=== PATIENT | female | born 1945 | race Caucasian/White ===

== ENCOUNTER 2020-12-11 07:57 | Outpatient (RCR) | payer MEDICARE, OTHER, SELFPAY | END 2020-12-11 23:59 | LOC: IMMUN 07:57 | PROVIDERS: PCP Family Medicine; Visit Provider Family Medicine | DX: Z23 Encounter for immunization (principal) | CPT/HCPCS: 0011A; 0012A ==

== ENCOUNTER → 2025-05-13 | Outpatient (CLI) | payer MEDICARE, OTHER, SELFPAY ==
--- OUTSIDE RECORDS SUMMARY | 2025-05-13 06:38 | XMS RPT_ITS | CCD ---
Author Organization [facility] Inform ion Partnership [facility] Care Team Providers Care Electrical Equipment Tester Name Role Phone MAXWELL CHACON MD Primary Care Physician Maxwell Chacon MD Primary Care Provider Maxwell Chacon MD Primary Care Provider Maxwell Chacon MD Primary Care Provider 1( [phone] MAXWELL CHACON MD Attending Unavailable MAXWELL CHACON MD Primary Care Unavailable MAXWELL CHACON MD Attending Unavailable MAXWELL CHACON MD Primary Care Unavailable Maxwell Chacon MD Primary Care Provider RACHAEL SIMMONS Referring Unavailable MAXWELL CHACON Primary Care Unavailable Maxwell Chacon Referring Unavailable Maxwell Chacon Attending Unavailable Maxwell Chacon Primary Care Unavailable MAXWELL CHACON MD Attending Unavailable MAXWELL CHACON MD Primary Care Unavailable ZACHERY PAPPAS DO Attending Unavailable MAXWELL HCACON MD Primary Care Unavailable MAXWELL CHACON MD Attending Unavailable MAXWELL CHACON MD Primary Care Unavailable Unavailable Unavailable Unavailable Allergies Allergy Classification Reported Allergen(s) Allergy Type Date of Onset Reaction(s) Facility (7 sources) Penicillin; Translations: [penicillin] Drug Allergy [facility] (7 sources) Penicillins; Translations: [PENICILLINS] Propensity to adverse reactions 12-31-2006 Rash [facility] Work Phone: (2 sources) Penicillins Propensity to adverse reactions 12-31-2006 [facility] Work Phone: Medications Current Medications Medication Drug Class(es) Dates Sig (Normalized) Sig (Original) aspirin 81 mg delayed release oral tablet (15 sources) Platelet Aggregation Inhibitor, Nonsteroidal Anti-inflammatory Drug Start: 08-31-2018 aspirin 81 mg oral delayed release tablet Dose : 81 mg = 1 tab(s), Oral, qDay, 0 Refill(s) Start Date: 08/31/18 Status: Ordered Repeat number: 1 Aspirin 81 mg ta b Take 81 mg by mouth. Active Comment on above: Take 81 mg by mouth. calcium carbonate 1500 mg / cholecalciferol 200 unt oral tablet (8 sources) Vitamin D Start : 12-31 CALCIUM + D 600 MG-200 UNIT TAB one tab daily 0 12/31/2006 Active Comment on above: one tab daily diazePAM 2 mg oral tablet (1 source) Benzodiazepine Start : 05-04 End: 07-03 diazePAM 2 mg oral tablet Dose : 2 mg = 1 tab(s), Oral, q8h, PRN as needed for anxiety, # 60 tab(s), 1 Refill(s), Pharmacy: [facility]/pharmacy #[id number], HUANG (generalized anxiety disorder), 167, cm, 05/04/25 9:28:00 EDT, Height, 78.8, kg, 05/04/25 9:28:00 EDT, Dosing Weight Start Date: 05/04/25 Stop Date: 07/03/25 Status: Ordered Quantity: 60.0 Unit: tab(s) Repeat number: 2 Indications: Generalized anxiety disorder; hydroCHLOROthiazide 25 mg oral tablet (14 sources) Thiazide Diuretic Start : 07-18 hydroCHLOROthiazide 25 mg oral tablet Dose : 25 mg = 1 tab(s), Oral, qDay, # 90 tab(s), 3 Refill(s), Pharmacy: [facility]/pharmacy #[id number], 167.7, cm, 10/07/24 13:01:00 EST, Height, kg, 10/07/24 13:01:00 EST, Dosing Weight Start Date: 03/09/25 Status: Ordered Quantity: 90.0 Unit: tab(s) Repeat number: 4 Comment on above: Take 1 tablet by vicky th once daily. hydroCHLOROthiazide 12.5 mg / losartan potassium 50 mg oral tablet (1 source) Thiazide Diuretic, Angiotensin 2 Receptor Viet Start : 05-04 End: 04-29 take 1 tablet by mouth once daily hydrochlorothiazide-losa rtan 12.5-50 mg oral tablet Dose = 1 tab(s), Oral, qDay, # 90 tab(s), 3 Refill(s), Pharmacy: [facility]/pharmacy #[id number], Well adult exam Chronic cough, 167, cm, 05/04/25 9:28:00 EDT, Height, kg, 05/04/25 9:28:00 EDT, Dosing Weight Start Date: 05/04/25 Stop Date: 04/29/26 Status: Ordered Quantity: 90.0 Unit: tab(s) Repeat number: 4 Indications: Encounter for general adult medical examination without abnormal findings; Chronic cough; levothyroxine sodium 0.05 mg oral tablet (15 sources) l-Thyroxine Start : 03-09 levothyroxine 50 mcg (0.05 mg) oral tablet Dose : 50 mcg = 1 tab(s), Oral, qDay, # 90 tab(s), 3 Refill(s), Pharmacy: [facility]/pharmacy #[id number], 167.7, cm, 10/07/24 13:01:00 EST, Height, kg, 10/07/24 13:01:00 EST, Dosing Weight Start Date: 03/09/25 Status: Ordered Quantity: 90.0 Unit: tab(s) Repeat number: 4 Start: 03-23-2024 levothyroxine 50 mcg (0.05 mg) oral tablet Dose : 50 mcg = 1 tab(s), Oral, qDay, # 90 tab(s), 3 Refill(s), Pharmacy: [facility]/pharmacy #[id number], 168.6, cm, 03/27/23 14:27:00 EDT, Height, kg, 03/27/23 14:27:00 EDT, Dosing Weight Start Date: 03/23/24 Status: Ordered Quantity: 90.0 Unit: tab(s) Repeat number: 4 Start: 03-27-2023 levothyroxine 50 mcg (0.05 mg) oral tablet Dose : 50 mcg = 1 tab(s), Oral, qDay, # 90 tab(s), 3 Refill(s), Pharmacy: [facility]/pharmacy #[id number], 168.6, cm, 03/27/23 14:27:00 EDT, Height, kg, 03/27/23 14:27:00 EDT, Dosing Weight Start Date: 03/27/23 Status: Ordered Start: 12-03-2022 levothyroxine 50 mcg (0.05 mg) oral tablet Dose : 50 mcg = 1 tab(s), Oral, qDay, # 90 tab(s), 0 Refill(s), [id number], 170, cm, 04/24/22 8:29:00 EDT, Height, kg, 04/24/22 8:29:00 EDT, Dosing Weight Start Date: 12/03/22 Status: Ordered Start: 09-04-2021 levothyroxine 50 mcg (0.05 mg) oral tablet Dose : 50 mcg = 1 tab(s), Oral, qDay, # 90 tab(s), 3 Refill(s), [id number], 169.6, cm, 08/29/21 11:56:00 EST, Height, kg, 08/29/21 11:56:00 EST, Dosing Weight Start Date: 09/04/21 Status: Ordered Levothyroxine 25 mcg cap Take 50 mcg by mouth. Active Comment on above: Take 50 mcg by mouth . Multivitamin preparation (7 sources) Start: 08-31-2018 take 1 tablet by mouth once daily Multivitamin Dose = 1 tab(s), Oral, Daily, 0 Refill(s) Start Date: 08/31/18 Status: Ordered Repeat number: 1 Start: 08-31-2018 take 1 tablet by vicky th once daily Multivitamin Dose = 1 tab(s), Oral, Daily, 0 Refill(s) Start Date: 08/31/18 Status: Ordered THERAPEUTIC MULTIVITAMIN TAB (8 sources) Start: 12-31-2006 THERAPEUTIC MULTIVITAMIN TAB Take one(1) tablet daily. 0 12/31/2006 Active Comment on above: Take one(1) tablet d aily. Completed/Discontinued Medications Medication Drug Class(es) Dates Sig (Normalized) Sig (Original) omega-3 fatty acids/fish oil (FISH OIL-OMEGA-3 FATTY ACIDS) 300-1,000 mg cap (1 source) End: 11-20-2022 omega-3 fatty acids/fish oil (FISH OIL-OMEGA-3 FATTY ACIDS) 300-1,000 mg cap Take by mouth. 0 11/20/2022 Discontinued Comment on above: Take by mouth. Problems Problem Classification Problem Date Documented Date Episodic/Chronic Acute bronchitis (1 source) Acute respiratory syncytial virus bronchitis; Translations: [Acute bronchitis due to respiratory syncytial virus] Onset: 10-05-2024 Episodic Anxiety disorders (1 source) Generalized anxiety disorder 05-04-2025 Chronic Disorders of lipid metabolism (15 sources) Mixed hyperlipidemia; Translations: [Mixed hyperlipidemia] Onset: 02-03-2019 02-25-2020 Chronic Essential hypertension (20 sources) Essential hypertension; Translations: [Hypertensive disorder] Onset: 09-01-2013 08-29-2021 Chronic Miscellaneous mental health disorders (7 sources) Primary insomnia 02-25-2020 Chronic Nonmalignant breast conditions (2 sources) Heterogeneously dense breast composition; Translations: [Heterogeneously dense tissue of both breasts on mammography] 11-26-2023 Episodic Nonspecific chest pain (1 source) Chest discomfort 04-12-2025 Episodic Other circulatory disease (7 sources) Carotid bruit 02-25-2020 Episodic Other female genital disorders (1 source) Cyst of vulva; Translations: [Vulvar cyst] Episodic Other lower respiratory disease (1 source) Shortness of breath; Translations: [Shortness of breath] Onset: 05-07-2025 Episodic Other lower respiratory disease (1 source) Chronic cough 04-12-2025 Episodic Other lower respiratory disease (1 source) Dyspnea on exertion 04-12-2025 Episodic Other screening for suspected conditions (not mental disorders or infectious disease) (6 sources) Patient encounter status; Translations: [Encounter for screening mammogram for malignant neoplasm of breast] Onset: 02-23-2025 Episodic Other upper respiratory disease (7 sources) Nasal discharge 08-29-2021 Episodic Other upper respiratory infections (3 sources) Acute sinusitis 04-07-2024 Episodic Thyroid disorders (20 sources) Hypothyroidism; Translations: [Hypothyroidism, unspecified] Onset: 09-01-2013 02-27-2018 Chronic Unclassified (7 sources) Patient encounter status 03-12-2023 Results Test Name Value Interpretation Reference Range Facility LABORATORYOrdered By: Johnny Kilgore on 05-04-2025 Albumin DL <= 20 mg/L (U) [Mass/Vol] 2.6 mg/L Invalid Interpretation Code AO ADM SS Albumin/Creatinine DL <= 20 mg/L (U) [Mass ratio] 6 mg/G Normal 0 - 30 mg/G AO Chemistry S Creatinine (U) [Mass/Vol] 42.9 mg/dL Invalid Interpretation Code AO ADM SS MALBRon 05-04-2025 U Creatinine 42.9 mg/dL Normal [facility] Comment on above: Performed By: #### M ALBR #### [address] [address] U Microalb 2.6 mg/L Normal [facility] Comment on above: Performed By: #### M ALBR #### [address] [address] U Ratio Alb/Cre 6 mg/G Normal 0-30 [facility] Comment on above: Performed By: #### M ALBR #### [address] [address] .Auto Diffon 04-07-2025 Basophil, Absolute 0.1 10 3/mcL Normal 0.0-0.3 [facility] Comment on above: Performed By: #### F T4, CMP, GFR, LIPID, CBC, ADIFF, ANEU, FT3, VIDH, TSH #### [address] [address] Basophils/100 WBC (Bld) 1.4 % Normal 0.0-2.5 [facility] Comment on above: Performed By: #### F T4, CMP, GFR, LIPID, CBC, ADIFF, ANEU, FT3, VIDH, TSH #### [address] [address] Eosinophil, Absolute 0.5 10 3/mcL Normal 0.0-0.7 [facility] Comment on above: Performed By: #### F T4, CMP, GFR, LIPID, CBC, ADIFF, ANEU, FT3, VIDH, TSH #### [address] [address] Eosinophils/100 WBC (Bld) 6.5 % High 0.0-6.0 [facility] Comment on above: Performed By: #### F T4, CMP, GFR, LIPID, CBC, ADIFF, ANEU, FT3, VIDH, TSH #### [address] [address] Lymphocyte, Absolute 2.9 10 3/mcL Normal 0.9-4.3 [facility] Comment on above: Performed By: #### F T4, CMP, GFR, LIPID, CBC, ADIFF, ANEU, FT3, VIDH, TSH #### [address] [address] Lymphocytes/100 WBC (Bld) 38.7 % Normal 20.0-40.0 [facility] Comment on above: Performed By: #### F T4, CMP, GFR, LIPID, CBC, ADIFF, ANEU, FT3, VIDH, TSH #### [address] [address] Monocyte, Absolute 0.7 10 3/mcL Normal 0.1-1.4 [facility] Comment on above: Performed By: #### F T4, CMP, GFR, LIPID, CBC, ADIFF, ANEU, FT3, VIDH, TSH #### [address] [address] Monocytes/100 WBC (Bld) 8.8 % Normal 2.0-13.0 [facility] Comment on above: Performed By: #### F T4, CMP, GFR, LIPID, CBC, ADIFF, ANEU, FT3, VIDH, TSH #### [address] [address] Neutrophils/100 WBC (Bld) 44.6 % Low 50.0-75.0 [facility] Comment on above: Performed By: #### F T4, CMP, GFR, LIPID, CBC, ADIFF, ANEU, FT3, VIDH, TSH #### [address] [address] .GFRon 04-07-2025 Estimated Glomerular Filtration Rate 72 ml/min/1.73sqm Normal [facility] Comment on above: Result Comment: Stages of Chronic Kidney Disease (CKD) Stage Description eGFR(ml/min/1.73 sq.m.) CKD 1 Normal kidney function or >=90 normal kindney function with possible kidney damage (ex. Proteinuria) CKD 2 Kidney damage with mild loss 60-89 of kidney function CKD 3a Mild to moderate loss of kidney 45-59 function CKD 3b Moderate to severe loss of 30-44 of kindey function CKD 4 Severe loss of kidney function 15-29 CKD 5 Kidney failure <15 Note: (go live 2024) the eGFR calculation was updated to the 2020 CKD-EPI creatinine equation without a race factor to calculate the eGFR results. Performed By: #### C VFLURV #### [place] [address] .NEUABSon 04-07-2025 Neutrophil, Absolute 3.3 10 3/mcL Normal 2.3-8.1 [facility] Comment on above: Performed By: #### F T4, CMP, GFR, LIPID, CBC, ADIFF, ANEU, FT3, VIDH, TSH #### [place] [address] CBCon 04-07-2025 Erythrocyte distribution width (RBC) [Ratio] 13.7 % Normal 11.5-15.5 [facility] Comment on above: Performed By: #### F T4, CMP, GFR, LIPID, CBC, ADIFF, ANEU, FT3, VIDH, TSH #### [place] [address] Hematocrit (Bld) [Volume fraction] 36.7 % Normal 34.0-46.0 [facility] Comment on above: Performed By: #### F T4, CMP, GFR, LIPID, CBC, ADIFF, ANEU, FT3, VIDH, TSH #### [place] [address] Hgb 12.5 G/dL Normal 12.0-16.0 [facility] Comment on above: Performed By: #### F T4, CMP, GFR, LIPID, CBC, ADIFF, ANEU, FT3, VIDH, TSH #### [place] [address] MCH (RBC) [Entitic mass] 29.9 pg Normal 27.0-33.0 [facility] Comment on above: Performed By: #### F T4, CMP, GFR, LIPID, CBC, ADIFF, ANEU, FT3, VIDH, TSH #### [address] [address] MCHC 34.2 G/dL Normal 32.0-36.0 [facility] Comment on above: Performed By: #### F T4, CMP, GFR, LIPID, CBC, ADIFF, ANEU, FT3, VIDH, TSH #### [place] [id number] MCV (RBC) [Entitic vol] 87.5 fL Normal 80.0-99.0 [facility] Comment on above: Performed By: #### F T4, CMP, GFR, LIPID, CBC, ADIFF, ANEU, FT3, VIDH, TSH #### [place] [address] Platelet 349 10 3/mcL Normal 150-450 [facility] Comment on above: Performed By: #### F T4, CMP, GFR, LIPID, CBC, ADIFF, ANEU, FT3, VIDH, TSH #### [place] [address] Platelet mean volume (Bld) [Entitic vol] 6.7 fL Normal 6.6-10.5 [facility] Comment on above: Performed By: #### F T4, CMP, GFR, LIPID, CBC, ADIFF, ANEU, FT3, VIDH, TSH #### [place] [address] RBC 4.19 10 6/mcL Normal 4.10-5.30 [facility] Comment on above: Performed By: #### F T4, CMP, GFR, LIPID, CBC, ADIFF, ANEU, FT3, VIDH, TSH #### [place] [address] WBC 7.4 10 3/mcL Normal 4.5-10.8 [facility] Comment on above: Performed By: #### F T4, CMP, GFR, LIPID, CBC, ADIFF, ANEU, FT3, VIDH, TSH #### [place] [address] CMPon 04-07-2025 Albumin Level 3.9 G/dL Normal 3.4-4.8 [facility] Comment on above: Performed By: #### F T4, CMP, GFR, LIPID, CBC, ADIFF, ANEU, FT3, VIDH, TSH #### [address] [address] Albumin/Globulin [Mass ratio] 1.0 {ratio} Low 1.1-2.5 [facility] Comment on above: Performed By: #### F T4, CMP, GFR, LIPID, CBC, ADIFF, ANEU, FT3, VIDH, TSH #### [address] [address] ALP [Catalytic activity/Vol] 84 U/L Normal 40-135 [facility] Comment on above: Performed By: #### F T4, CMP, GFR, LIPID, CBC, ADIFF, ANEU, FT3, VIDH, TSH #### [address] [address] ALT [Catalytic activity/Vol] 21 U/L Normal 14-59 [facility] Comment on above: Performed By: #### F T4, CMP, GFR, LIPID, CBC, ADIFF, ANEU, FT3, VIDH, TSH #### [address] [address] AST [Catalytic activity/Vol] 19 U/L Normal 10-40 [facility] Comment on above: Performed By: #### F T4, CMP, GFR, LIPID, CBC, ADIFF, ANEU, FT3, VIDH, TSH #### [address] [address] Bili Total 0.5 mg/dL Normal 0.2-1.0 [facility] Comment on above: Result Comment: Use of this assay is not recommended for patients undergoing treatment with eltrombopag due to the potential for falsely elevated results. Performed By: #### F T4, CMP, GFR, LIPID, CBC, ADIFF, ANEU, FT3, VIDH, TSH #### [address] [address] BUN/Creatinine Ratio 17 ratio Normal 7-27 [facility] Comment on above: Performed By: #### F T4, CMP, GFR, LIPID, CBC, ADIFF, ANEU, FT3, VIDH, TSH #### [place] [address] Calcium [Mass/Vol] 10.0 mg/dL Normal 8.4-10.2 [facility] Comment on above: Performed By: #### F T4, CMP, GFR, LIPID, CBC, ADIFF, ANEU, FT3, VIDH, TSH #### [place] [address] Chloride [Moles/Vol] 100 mmol/L Normal 98-107 [facility] Comment on above: Performed By: #### F T4, CMP, GFR, LIPID, CBC, ADIFF, ANEU, FT3, VIDH, TSH #### [place] [address] CO2 [Moles/Vol] 35 mmol/L High 23-31 [facility] Comment on above: Performed By: #### F T4, CMP, GFR, LIPID, CBC, ADIFF, ANEU, FT3, VIDH, TSH #### [place] [address] Creatinine [Mass/Vol] 0.82 mg/dL Normal 0.51-0.[address] [facility] Comment on above: Performed By: #### F T4, CMP, GFR, LIPID, CBC, ADIFF, ANEU, FT3, VIDH, TSH #### [place] [address] Electrolyte Balance 2.0 mEq/L Low 4.0-15.0 [facility] Comment on above: Performed By: #### F T4, CMP, GFR, LIPID, CBC, ADIFF, ANEU, FT3, VIDH, TSH #### [place] [address] Globulin 4.1 G/dL Normal 2.7-4.4 [facility] Comment on above: Performed By: #### F T4, CMP, GFR, LIPID, CBC, ADIFF, ANEU, FT3, VIDH, TSH #### [address] [address] Glucose [Mass/Vol] 96 mg/dL Normal 83-110 [facility] Comment on above: Performed By: #### F T4, CMP, GFR, LIPID, CBC, ADIFF, ANEU, FT3, VIDH, TSH #### [address] [address] Potassium [Moles/Vol] 4.5 mmol/L Normal 3.5-5.[address] [facility] Comment on above: Performed By: #### F T4, CMP, GFR, LIPID, CBC, ADIFF, ANEU, FT3, VIDH, TSH #### [address] [address] Sodium [Moles/Vol] 137 mmol/L Normal 136-145 [facility] Comment on above: Performed By: #### F T4, CMP, GFR, LIPID, CBC, ADIFF, ANEU, FT3, VIDH, TSH #### [address] [address] Total Protein 8.0 G/dL Normal 6.4-8.2 [facility] Comment on above: Performed By: #### F T4, CMP, GFR, LIPID, CBC, ADIFF, ANEU, FT3, VIDH, TSH #### [address] [address] Urea nitrogen [Mass/Vol] 14 mg/dL Normal 7-18 [facility] Comment on above: Performed By: #### F T4, CMP, GFR, LIPID, CBC, ADIFF, ANEU, FT3, VIDH, TSH #### [address] [address] FT3on 04-07-2025 Free T3 [Mass/Vol] 2.49 pg/mL Normal 2.30-4.00 [facility] Comment on above: Performed By: #### F T4, CMP, GFR, LIPID, CBC, ADIFF, ANEU, FT3, VIDH, TSH #### [place] [id number] [place], [place] [address] FT4on 04-07-2025 Free T4 [Mass/Vol] 0.97 ng/dL Normal 0.76-1.46 [facility] Comment on above: Performed By: #### F T4, CMP, GFR, LIPID, CBC, ADIFF, ANEU, FT3, VIDH, TSH #### [place] [id number] [place], [place] [address] LABORATORYOrdered By: SYSTEM SYSTEM on 04-07-2025 25-hydroxyvitamin D3 [Mass/Vol] 49.4 ng/mL Invalid Interpretation Code AO ADM SS Comment on above: Interpretive Data: I nterpretive Values Based on Total 25(OH) Vitamin D: Deficient <20 ng/mL Insufficient 20 - <30 ng/mL Sufficient 30-100 ng/mL Albumin BCP dye [Mass/Vol] 3.9 G/dL Normal 3.4 - 4.8 G/dL AO ADM SS Albumin/Globulin [Mass ratio] 1.0 {ratio} Low 1.1 - 2.5 ratio AO ADM SS ALP [Catalytic activity/Vol] 84 U/L Normal 40 - 135 U/L AO ADM SS ALT With P-5'-P [Catalytic activity/Vol] 21 U/L Normal 14 - 59 U/L AO ADM SS AST With P-5'-P [Catalytic activity/Vol] 19 U/L Normal 10 - 40 U/L AO ADM SS Basophils (Bld) [#/Vol] 0.1 103/mcL Normal 0.0 - 0.3 10^3/mcL AO Workflow SS Basophils/100 WBC (Bld) 1.4 % Normal 0.0 - 2.5 % AO Workflow SS Bilirubin [Mass/Vol] 0.5 mg/dL Normal 0.2 - 1 .0 mg/dL AO ADM SS Comment on above: Interpretive Data: U se of this assay is not recommended for patients undergoing treatment with eltrombopag due to the potential for falsely elevated results. Calcium [Mass/Vol] 10.0 mg/dL Normal 8.4 - 10. 2 mg/dL AO ADM SS Chloride [Moles/Vol] 100 mmol/L Normal 98 - 10 7 mmol/L AO ADM SS CO2 [Moles/Vol] 35 mmol/L High 23 - 31 mmol/L AO ADM SS Creatinine [Mass/Vol] 0.82 mg/dL Normal 0.51 - 0.95 mg/dL AO ADM SS Electrolyte Balance 2.0 mEq/L Low 4.0 - 15 .0 mEq/L AO ADM SS Eosinophil, Absolute 0.5 103/mcL Normal 0.0 - 0 .7 10^3/mcL AO Workflow SS Eosinophils/100 WBC (Bld) 6.5 % High 0.0 - 6.0 % AO Workflow SS Erythrocyte distribution width (RBC) [Ratio] 13.7 % Normal 11.5 - 15.5 % AO Workflow SS Estimated Glomerular Filtration Rate 72 ml/min/1.73sqm Invalid Interpretation Code AO Chemistry S Comment on above: Interpretive Data: Stages of Chronic Kidney Disease (CKD) Stage Description eGFR(ml/min/1.73 sq.m.) CKD 1 Normal kidney function or >=90 normal kindney function with possible kidney damage (ex. Proteinuria) CKD 2 Kidney damage with mild loss 60-89 of kidney function CKD 3a Mild to moderate loss of kidney 45-59 function CKD 3b Moderate to severe loss of 30-44 of kindey function CKD 4 Severe loss of kidney function 15-29 CKD 5 Kidney failure <15 Note: (go live 2024) the eGFR calculation was updated to the 2020 CKD-EPI creatinine equation without a race factor to calculate the eGFR results. Free T3 [Mass/Vol] 2.49 pg/mL Normal 2.30 - 4. 00 pg/mL AO ADM SS Free T4 [Mass/Vol] 0.97 ng/dL Normal 0.76 - 1. 46 ng/dL AO ADM SS Globulin 4.1 G/dL Normal 2.7 - 4.4 G/dL AO ADM SS Glucose [Mass/Vol] 96 mg/dL Normal 83 - 110 mg/dL AO ADM SS Hematocrit (Bld) [Volume fraction] 36.7 % Normal 34.0 - 46.0 % AO Workflow SS Hemoglobin (Bld) [Mass/Vol] 12.5 G/dL Normal 12.0 - 16.0 G/dL AO Workflow SS Lymphocytes (Bld) [#/Vol] 2.9 103/mcL Normal 0.9 - 4.3 10^3/mcL AO Workflow SS Lymphocytes/100 WBC (Bld) 38.7 % Normal 20.0 - 40.0 % AO Workflow SS MCH (RBC) [Entitic mass] 29.9 pg Normal 27.0 - 33.0 pg AO Workflow SS MCHC 34.2 G/dL Normal 32.0 - 36.0 G/dL AO Workflow SS MCV (RBC) [Entitic vol] 87.5 fL Normal 80.0 - 99.0 fL AO Workflow SS Monocytes (Bld) [#/Vol] 0.7 103/mcL Normal 0.1 - 1.4 10^3/mcL AO Workflow SS Monocytes/100 WBC (Bld) 8.8 % Normal 2.0 - 13.0 % AO Workflow SS Neutrophils (Bld) [#/Vol] 3.3 103/mcL Normal 2.3 - 8.1 10^3/mcL AO Workflow SS Neutrophils/100 WBC (Bld) 44.6 % Low 50.0 - 75.0 % AO Workflow SS Platelet mean volume (Bld) [Entitic vol] 6.7 fL Normal 6.6 - 10.5 fL AO Workflow SS Platelets (Bld) [#/Vol] 349 103/mcL Normal 150 - 450 10^3/mcL AO Workflow SS Potassium [Moles/Vol] 4.5 mmol/L Normal 3.5 - 5.1 mmol/L AO ADM SS Protein [Mass/Vol] 8.0 G/dL Normal 6.4 - 8.2 G/dL AO ADM SS RBC (Bld) [#/Vol] 4.19 106/mcL Normal 4.10 - 5.3 0 10^6/mcL AO Workflow SS Sodium [Moles/Vol] 137 mmol/L Normal 136 - 145 mmol/L AO ADM SS TSH Qn 3.25 m[IU]/L Normal 0.36 - 3.74 mcIU/mL AO ADM SS Urea nitrogen [Mass/Vol] 14 mg/dL Normal 7 - 18 mg/dL AO ADM SS Urea nitrogen/Creatinine [Mass ratio] 17 ratio Normal 7 - 27 ratio AO ADM SS WBC (Bld) [#/Vol] 7.4 103/mcL Normal 4.5 - 10.8 10^3/mcL AO Workflow SS LABORATORYOrdered By: Manfred Padilla on 04-07-2025 Cholesterol [Mass/Vol] 242 mg/dL High 0 - 200 mg/dL AO ADM SS Comment on above: Interpretive Data: C holesterol Reference Interval: Less than 200 Desirable 200-239 Borderline high risk 240 and above High risk Cholesterol in HDL [Mass/Vol] 81 mg/dL High 40 - 60 mg/dL AO ADM SS Cholesterol in LDL [Mass/Vol] 141 mg/dL High 0 - 130 mg/dL AO ADM SS Triglyceride [Mass/Vol] 100 mg/dL Normal 0 - 150 mg/dL AO ADM SS Comment on above: Interpretive Data: T riglyceride Reference Interval: Less than 150 Normal 150-199 Borderline high risk 200-499 High risk 500 or higher Very high risk LIPIDon 04-07-2025 Cholesterol [Mass/Vol] 242 mg/dL High 0-200 [facility] Comment on above: Result Comment: Chol esterol Reference Interval: Less than 200 Desirable 200-239 Borderline high risk 240 and above High risk Performed By: #### C VFLURV #### [address] [address] Cholesterol in HDL [Mass/Vol] 81 mg/dL High 40-60 [facility] Comment on above: Performed By: #### C VFLURV #### [address] [address] Cholesterol in LDL [Mass/Vol] 141 mg/dL High 0-130 [facility] Comment on above: Performed By: #### C VFLURV #### [address] [address] Triglyceride [Mass/Vol] 100 mg/dL Normal 0-150 [facility] Comment on above: Result Comment: Trig lyceride Reference Interval: Less than 150 Normal 150-199 Borderline high risk 200-499 High risk 500 or higher Very high risk Performed By: #### C VFLURV #### [address] [address] TSHon 04-07-2025 TSH Qn 3.25 m[IU]/L Normal 0.36-3.74 [facility] Comment on above: Performed By: #### F T4, CMP, GFR, LIPID, CBC, ADIFF, ANEU, FT3, VIDH, TSH #### [address] [address] VIDHon 04-07-2025 Vit. D 25-Hydroxy 49.4 ng/mL Normal [facility] Comment on above: Result Comment: Inte rpretive Values Based on Total 25(OH) Vitamin D: Deficient <20 ng/mL Insufficient 20 - <30 ng/mL Sufficient 30-100 ng/mL Performed By: #### F T4, CMP, GFR, LIPID, CBC, ADIFF, ANEU, FT3, VIDH, TSH #### [id number] [place], [place] [address] DBT Breast - bilateral scree tyson 02-23-2025 IMPRESSION: There is no mammographic evidence of malignancy in either breast. Routine screening mammogram is recommended. Annual mammogram will be due in 1 year. BI-RADS Category 1: Negative RISK: Based on the Tyrer-Cuzick (TC) risk assessment model, this patient has a 1.4% lifetime risk of developing breast cancer, meaning they are at average risk for developing breast cancer. However, this is only an estimate based on available history provided on the patient's questionnaire. We encourage all patients to talk with their providers about these results, further recommendations for managing breast health, and appropriate supplemental screening options if the patient has dense breast tissue. Interpreting Radiologist: Chante Anna M.D. Electronically signed on: 02/23/2025 Field Marketing Lead: JUANA Transcrilaila Date/Time: Feb 23 2025 10:42A Dictated by: CHANTE ANNA MD This examination was interpreted and the report reviewed and electronically signed by: CHANTE ANNA MD on Feb 23 2025 12:38PM [facility] DIVISION OF RADIOLOGY * * *Final Report* * * DATE OF EXAM: Feb 23 2025 10:55AM [facility] 0582 - [facility] SCREENING W VÍCTOR / PROCEDURE REASON: Encounter for screening mammogram for malignant neoplasm of breast * * * * Physician Interpretation * * * * RESULT: [facility] [address] [place] [address] #[id number] - [facility] SCREENING W VÍCTOR HISTORY: 79 year-old patient seen for screening. Patient is asymptomatic in both breasts. Patient states no personal history of breast cancer. COMPARISON STUDIES: The present examination has been compared to prior imaging studies dated 05/19/2020 (mammogram), 05/23/2021 (mammogram), 11/20/2022 (mammogram) and 11/27/2023 (mammogram). MAMMOGRAM TECHNIQUE: The study was acquired using full field digital technology and interpreted from soft copy. Digital Breast Tomosynthesis (DBT) images were obtained and used to assist in the interpretation of this examination. MAMMOGRAM FINDINGS: There are scattered areas of fibroglandular density. No suspicious masses, calcifications or other abnormalities are seen in either breast. There are no significant interval changes. DIVISION OF RADIOLOGY Provider, [facility] - 02/23/2025 * * *Final Report* * * DATE OF EXAM: Feb 23 2025 10:55AM [facility] 0582 - [facility] SCREENING W VÍCTOR / PROCEDURE REASON: Encounter for screening mammogram for malignant neoplasm of breast * * * * Physician Interpretation * * * * RESULT: [place] [address] #[id number] - [facility] SCREENING W VÍCTOR HISTORY: 79 year-old patient seen for screening. Patient is asymptomatic in both breasts. Patient states no personal history of breast cancer. COMPARISON STUDIES: The present examination has been compared to prior imaging studies dated 05/19/2020 (mammogram), 05/23/2021 (mammogram), 11/20/2022 (mammogram) and 11/27/2023 (mammogram). MAMMOGRAM TECHNIQUE: The study was acquired using full field digital technology and interpreted from soft copy. Digital Breast Tomosynthesis (DBT) images were obtained and used to assist in the interpretation of this examination. MAMMOGRAM FINDINGS: There are scattered areas of fibroglandular density. No suspicious masses, calcifications or other abnormalities are seen in either breast. There are no significant interval changes. IMPRESSION IMPRESSION: There is no mammographic evidence of malignancy in either breast. Routine screening mammogram is recommended. Annual mammogram will be due in 1 year. BI-RADS Category 1: Negative RISK: Based on the Tyrer-Cuzick (TC) risk assessment model, this patient has a 1.4% lifetime risk of developing breast cancer, meaning they are at average risk for developing breast cancer. However, this is only an estimate based on available history provided on the patient's questionnaire. We encourage all patients to talk with their providers about these results, further recommendations for managing breast health, and appropriate supplemental screening options if the patient has dense breast tissue. Interpreting Radiologist: Chante Anna M.D. Electronically signed on: 02/23/2025 Field Marketing Lead: JUANA Transcribe Date/Time: Feb 23 2025 10:42A Dictated by: CHANTE ANNA MD This examination was interpreted and the report reviewed and electronically signed by: CHANTE ANNA MD on Feb 23 2025 12:38PM EST [facility] Radiology Study observation (narrative) [facility] DBT Breast - bilateral scree ningOrdered By: Ccf Provider on 02-23-2025 [facility] ADELE SCREENING W TOMOon 02-23 [facility] SCREENING W VÍCTOR * * *Final Report* * * DATE OF EXAM: Feb 23 2025 10:55AM [facility] 0582 - [place] SCREENING W VÍCTOR / PROCEDURE REASON: Encounter for screening mammogram for malignant neoplasm of breast * * * * Physician Interpretation * * * * RESULT: [address] [place] [address] #[id number] - [facility] SCREENING W VÍCTOR HISTORY: 79 year-old patient seen for screening. Patient is asymptomatic in both breasts. Patient states no personal history of breast cancer. COMPARISON STUDIES: The present examination has been compared to prior imaging studies dated 05/19/2020 (mammogram), 05/23/2021 (mammogram), 11/20/2022 (mammogram) and 11/27/2023 (mammogram). MAMMOGRAM TECHNIQUE: The study was acquired using full field digital technology and interpreted from soft copy. Digital Breast Tomosynthesis (DBT) images were obtained and used to assist in the interpretation of this examination. MAMMOGRAM FINDINGS: There are scattered areas of fibroglandular density. No suspicious masses, calcifications or other abnormalities are seen in either breast. There are no significant interval changes. IMPRESSION: There is no mammographic evidence of malignancy in either breast. Routine screening mammogram is recommended. Annual mammogram will be due in 1 year. BI-RADS Category 1: Negative RISK: Based on the Tyrer-Cuzick (TC) risk assessment model, this patient has a 1.4% lifetime risk of developing breast cancer, meaning they are at average risk for developing breast cancer. However, this is only an estimate based on available history provided on the patient's questionnaire. We encourage all patients to talk with their providers about these results, further recommendations for managing breast health, and appropriate supplemental screening options if the patient has dense breast tissue. Interpreting Radiologist: Chante Anna M.D. Electronically signed on: 02/23/2025 Field Marketing Lead: JUANA Transcribe Date/Time: Feb 23 2025 10:42A Dictated by: CHANTE ANNA MD This examination was interpreted and the report reviewed and electronically signed by: CHANTE ANNA MD on Feb 23 2025 12:38PM EST [id number] [facility] (OBGYWM) KELVIN MCINTYRE ([id number]) 1945 F Date Time Provider Department 02/02/25 RACHAEL SIMMONS During your visit today, we recorded the following information about you: Che Ch RN 02/02/2025 9:53 AM Signed Patient requesting Mamm with VÍCTOR order. Please file and then route to PSS to call and assist patient with scheduling. Thank you. Che Ch RN Allergies As of Date: 02/02/2025 Noted Allergy Reaction PENICILLINS 12/31/2006 2 - Rash Date Reviewed: 11/20/2022 Reviewed by: aRchael Simmons APRN.POLISHER APPRENTICE - Fully Assessed Primary Visit Diagnosis:Encounter for screening mammogram for malignant neoplasm of breast [Z12.31] Order(s):[facility] SCREENING W VÍCTOR [[id number]] Order #: [id number] FUTURE Prescriptions as of 02/02/2025 - Levothyroxine 25 mcg cap Take 50 mcg by mouth. - Aspirin 81 mg tab Take 81 mg by mouth. - hydrochlorothiazide 25 mg ORAL tablet Take 1 tablet by mouth once daily. - THERAPEUTIC MULTIVITAMIN TAB Take one(1) tablet daily. - CALCIUM + D 600 MG-200 UNIT TAB one tab daily Problem List As Of Date 02/02/2025 Noted Resolved HTN (hypertension) [I10] 09/01/2013 Hypothyroid [E03.9] 09/01/2013 Mixed hyperlipidemia [E78.2] 02/03/2019 Encounter Status:Closed by CHE CH on 02/02/25 Normal [facility] CVFLURVon 10-05-2024 FLU A PCR Negative Normal Negative [facility] Comment on above: Performed By: #### C VFLURV #### [address] [place] [address] FLU B PCR Negative Normal Negative [facility] Comment on above: Performed By: #### C VFLURV #### [address] [place] [address] RSV PCR Positive Abnormal Negative [facility] Comment on above: Performed By: #### C VFLURV #### [place] [address] SARS-CoV-2 (COVID-19) RNA JASVIR+probe Ql (Unsp spec) Negative Normal Negative [facility] Comment on above: Result Comment: Resu lts from the Xpert Xpress CoV-2/Flu/RSV plus test should be correlated with the clinical history, epidemiological data, and other data available to the clinical evaluating the patient. Performance of the Xpert Xpress CoV-2/Flu/RSV plus test has only been established in nasopharyngeal swab specimen. Erroneous test results might occur from improper specimen collection, failure to follow the recommended sample collection, handling and storage procedures, technical error, or sample mix-up. False negative results may occur if a virus is present at a level below the analytical limit of detection. Viral nucleic acid may persist in vivo, independent of virus viability. Detection of analyte target(s) does not imply that the corresponding virus(es) are infectious or are the causative agents for clinical symptoms. Recent patient exposure to FluMist or other live attenuated influenza vaccines may cause inaccurate positive results. Performed By: #### C VFLURV #### [place] [address] [address] LABORATORYOrdered By: Edna Asencio on 10-05-2024 FLUAV RNA JASVIR+probe Ql (Resp) Negative (10/05/24 4:01 PM) Normal Negative AO Auto Urine SS FLUBV RNA JASVIR+probe Ql (Resp) Negative (10/05/24 4:01 PM) Normal Negative AO Auto Urine SS RSV RNA JASVIR+probe Ql (Resp) Positive *ABN* (10/05/24 4:01 PM) Invalid Interpretation Code Negative AO Auto Urine SS SARS-CoV-2 (COVID-19) RNA JASVIR+probe Ql (Resp) Negative 1 (10/05/24 4:01 PM) Normal Negative AO Auto Urine SS Comment on above: Interpretive Data: R esults from the Xpert Xpress CoV-2/Flu/RSV plus test should be correlated with the clinical history, epidemiological data, and other data available to the clinical evaluating the patient. Performance of the Xpert Xpress CoV-2/Flu/RSV plus test has only been established in nasopharyngeal swab specimen. Erroneous test results might occur from improper specimen collection, failure to follow the recommended sample collection, handling and storage procedures, technical error, or sample mix-up. False negative results may occur if a virus is present at a level below the analytical limit of detection. Viral nucleic acid may persist in vivo, independent of virus viability. Detection of analyte target(s) does not imply that the corresponding virus(es) are infectious or are the causative agents for clinical symptoms. Recent patient exposure to FluMist or other live attenuated influenza vaccines may cause inaccurate positive results. XR CHEST 2 VIEWSon XR CHEST 2 VIEWS ORIGINAL EXAMINATION: TWO XRAY VIEWS OF THE CHEST 10/05/2024 4:02 pm COMPARISON: 02/27/2018 HISTORY: ORDERING SYSTEM PROVIDED HISTORY: Reason for Exam: cough FINDINGS: Stable cardiomediastinal silhouette. Atherosclerotic aorta. Focal consolidation, vascular congestion, pleural effusion, or pneumothorax. No acute osseous findings. IMPRESSION: No acute radiographic findings. I have personally reviewed the images of this examination and agree with the resident's findings and interpretation. Interpreted by: Lela Esteves MD Preliminary Report By: Yusra Ashley Electronically signed By Lela Esteves MD Dictated Date: 10/05/2024 4:10:03 PM Prelim Date: 10/05/2024 4:10:59 PM Sign Date: 10/05/2024 4:36:36 PM Ordering Provider: ZACHERY PAPPAS [facility] .Auto Diffon 03-19-2024 Basophil, Absolute 0.1 10 3/mcL Normal 0.0-0.2 [facility] ([place]) Comment on above: Performed By: #### V IDH, LIPID, TSH, ANEU, FT3, ADIFF, GFR, CMP, CBC #### [address] [address] Basophils/100 WBC (Bld) 1.0 % Normal 0.0-2.5 [facility] ([place]) Comment on above: Performed By: #### V IDH, LIPID, TSH, ANEU, FT3, ADIFF, GFR, CMP, CBC #### [address] [address] Eosinophil, Absolute 0.2 10 3/mcL Normal 0.0-0.4 [facility] ([place]) Comment on above: Performed By: #### V IDH, LIPID, TSH, ANEU, FT3, ADIFF, GFR, CMP, CBC #### [address] [address] Eosinophils/100 WBC (Bld) 2.9 % Normal 0.0-7.0 [facility] ([place]) Comment on above: Performed By: #### V IDH, LIPID, TSH, ANEU, FT3, ADIFF, GFR, CMP, CBC #### [address] [address] Lymphocyte, Absolute 1.9 10 3/mcL Normal 0.8-3.9 [facility] ([place]) Comment on above: Performed By: #### V IDH, LIPID, TSH, ANEU, FT3, ADIFF, GFR, CMP, CBC #### [address] [address] Lymphocytes/100 WBC (Bld) 26.5 % Normal 10.0-50.0 [facility] ([place]) Comment on above: Performed By: #### V IDH, LIPID, TSH, ANEU, FT3, ADIFF, GFR, CMP, CBC #### [address] [address] Monocyte, Absolute 0.7 10 3/mcL Normal 0.2-1.0 [facility] ([place]) Comment on above: Performed By: #### V IDH, LIPID, TSH, ANEU, FT3, ADIFF, GFR, CMP, CBC #### [address] [address] Monocytes/100 WBC (Bld) 10.2 % Normal 1.7-13.0 [facility] ([place]) Comment on above: Performed By: #### V IDH, LIPID, TSH, ANEU, FT3, ADIFF, GFR, CMP, CBC #### [address] [address] Neutrophils/100 WBC (Bld) 59.4 % Normal 37.0-80.0 [facility] ([place]) Comment on above: Performed By: #### V IDH, LIPID, TSH, ANEU, FT3, ADIFF, GFR, CMP, CBC #### [address] [address] .GFRon 03-19-2024 GFR 85 ml/min/1.73sqm Normal [facility] ([place]) Comment on above: Result Comment: GFR Population mean for , Non- Americans Ages 20-29 = 116 mL/min/1.73 sq.m. Ages 30-39 = 107 mL/min/1.73 sq.m. Ages 40-49 = 99 mL/min/1.73 sq.m. Ages 50-59 = 93 mL/min/1.73 sq.m. Ages 60-69 = 85 mL/min/1.73 sq.m. Ages 70+ = 75 mL/min/1.73 sq.m. Chronic Kidney Disease: Less than 60 mL/min/1.73 square meters End Stage Renal Disease: Less than 15 mL/min/1.73 square meters Performed By: #### V IDH, LIPID, TSH, ANEU, FT3, ADIFF, GFR, CMP, CBC #### [address] [address] GFR Non- 70 ml/min/1.73sqm Normal [facility] ([place]) Comment on above: Result Comment: GFR Population mean for , Non- Americans Ages 20-29 = 116 mL/min/1.73 sq.m. Ages 30-39 = 107 mL/min/1.73 sq.m. Ages 40-49 = 99 mL/min/1.73 sq.m. Ages 50-59 = 93 mL/min/1.73 sq.m. Ages 60-69 = 85 mL/min/1.73 sq.m. Ages 70+ = 75 mL/min/1.73 sq.m. Chronic Kidney Disease: Less than 60 mL/min/1.73 square meters End Stage Renal Disease: Less than 15 mL/min/1.73 square meters Performed By: #### V IDH, LIPID, TSH, ANEU, FT3, ADIFF, GFR, CMP, CBC #### [address] [address] .NEUABSon 03-19-2024 Neutrophil, Absolute 4.3 10 3/mcL Normal 2.9-6.2 [facility] ([place]) Comment on above: Performed By: #### V IDH, LIPID, TSH, ANEU, FT3, ADIFF, GFR, CMP, CBC #### [address] [address] CBCon 03-19-2024 Erythrocyte distribution width (RBC) [Ratio] 13.2 % Normal 11.5-14.5 [facility] ([place]) Comment on above: Performed By: #### V IDH, LIPID, TSH, ANEU, FT3, ADIFF, GFR, CMP, CBC #### [address] [address] Hematocrit (Bld) [Volume fraction] 35.5 % Low 37.0-47.0 [facility] ([place]) Comment on above: Performed By: #### V IDH, LIPID, TSH, ANEU, FT3, ADIFF, GFR, CMP, CBC #### [address] [address] Hgb 12.0 G/dL Normal 12.0-16.0 [facility] ([place] Comment on above: Performed By: #### V IDH, LIPID, TSH, ANEU, FT3, ADIFF, GFR, CMP, CBC #### [address] [address] MCH (RBC) [Entitic mass] 29.8 pg Normal 27.0-31.2 [facility] ([place]) Comment on above: Performed By: #### V IDH, LIPID, TSH, ANEU, FT3, ADIFF, GFR, CMP, CBC #### [address] [address] MCHC 33.8 G/dL Normal 33.0-37.0 [facility] ([place] Comment on above: Performed By: #### V IDH, LIPID, TSH, ANEU, FT3, ADIFF, GFR, CMP, CBC #### [address] [address] MCV (RBC) [Entitic vol] 88.3 fL Normal 80.0-94.0 [facility] ([place]) Comment on above: Performed By: #### V IDH, LIPID, TSH, ANEU, FT3, ADIFF, GFR, CMP, CBC #### [address] [address] Platelet 335 10 3/mcL Normal 130-400 [facility] ([place]) Comment on above: Performed By: #### V IDH, LIPID, TSH, ANEU, FT3, ADIFF, GFR, CMP, CBC #### [address] [address] Platelet mean volume (Bld) [Entitic vol] 6.8 fL Low 7.4-10.4 [facility] ([place]) Comment on above: Performed By: #### V IDH, LIPID, TSH, ANEU, FT3, ADIFF, GFR, CMP, CBC #### [address] [address] RBC 4.03 10 6/mcL Low 4.20-5.40 [facility] ([place] Comment on above: Performed By: #### V IDH, LIPID, TSH, ANEU, FT3, ADIFF, GFR, CMP, CBC #### [address] [address] WBC 7.3 10 3/mcL Normal 4.6-10.8 [facility] ([place] Comment on above: Performed By: #### V IDH, LIPID, TSH, ANEU, FT3, ADIFF, GFR, CMP, CBC #### [address] [address] CMPon 03-19-2024 Albumin Level 3.8 G/dL Normal 3.4-4.8 [facility] ([place]) Comment on above: Performed By: #### V IDH, LIPID, TSH, ANEU, FT3, ADIFF, GFR, CMP, CBC #### [address] [address] Albumin/Globulin [Mass ratio] 1.1 {ratio} Normal 1.1-2.5 [facility] ([place] Comment on above: Performed By: #### V IDH, LIPID, TSH, ANEU, FT3, ADIFF, GFR, CMP, CBC #### [address] [address] ALP [Catalytic activity/Vol] 82 U/L Normal 40-135 [facility] ([place]) Comment on above: Performed By: #### V IDH, LIPID, TSH, ANEU, FT3, ADIFF, GFR, CMP, CBC #### [address] [address] ALT [Catalytic activity/Vol] 21 U/L Normal 14-59 [facility] ([place]) Comment on above: Performed By: #### V IDH, LIPID, TSH, ANEU, FT3, ADIFF, GFR, CMP, CBC #### [address] [address] AST [Catalytic activity/Vol] 15 U/L Normal 10-40 [facility] ([place]) Comment on above: Performed By: #### V IDH, LIPID, TSH, ANEU, FT3, ADIFF, GFR, CMP, CBC #### [address] [address] Bili Total 0.4 mg/dL Normal 0.2-1.0 [facility] ([place]) Comment on above: Result Comment: Use of this assay is not recommended for patients undergoing treatment with eltrombopag due to the potential for falsely elevated results. Performed By: #### V IDH, LIPID, TSH, ANEU, FT3, ADIFF, GFR, CMP, CBC #### [address] [address] BUN/Creatinine Ratio 19 ratio Normal 7-27 [facility] ([place]) Comment on above: Performed By: #### V IDH, LIPID, TSH, ANEU, FT3, ADIFF, GFR, CMP, CBC #### [address] [address] Calcium [Mass/Vol] 9.4 mg/dL Normal 8.4-10.2 [facility] ([place]) Comment on above: Performed By: #### V IDH, LIPID, TSH, ANEU, FT3, ADIFF, GFR, CMP, CBC #### [address] [address] Chloride [Moles/Vol] 97 mmol/L Low 98-107 [facility] ([place]) Comment on above: Performed By: #### V IDH, LIPID, TSH, ANEU, FT3, ADIFF, GFR, CMP, CBC #### [address] [address] CO2 [Moles/Vol] 31 mmol/L Normal 23-31 [facility] ([place]) Comment on above: Performed By: #### V IDH, LIPID, TSH, ANEU, FT3, ADIFF, GFR, CMP, CBC #### [address] [address] Creatinine [Mass/Vol] 0.79 mg/dL Normal 0.55-1.02 [facility] ([place]) Comment on above: Performed By: #### V IDH, LIPID, TSH, ANEU, FT3, ADIFF, GFR, CMP, CBC #### [address] [address] Electrolyte Balance 8.0 mEq/L Normal 4.0-15.0 [facility] ([place]) Comment on above: Performed By: #### V IDH, LIPID, TSH, ANEU, FT3, ADIFF, GFR, CMP, CBC #### [address] [address] Globulin 3.5 G/dL Normal [facility] ([place]) Comment on above: Performed By: #### V IDH, LIPID, TSH, ANEU, FT3, ADIFF, GFR, CMP, CBC #### [address] [address] Glucose [Mass/Vol] 86 mg/dL Normal 83-110 [facility] ([place]) Comment on above: Performed By: #### V IDH, LIPID, TSH, ANEU, FT3, ADIFF, GFR, CMP, CBC #### [address] [address] Potassium [Moles/Vol] 4.2 mmol/L Normal 3.5-5.1 [facility] ([place]) Comment on above: Performed By: #### V IDH, LIPID, TSH, ANEU, FT3, ADIFF, GFR, CMP, CBC #### [address] [address] Sodium [Moles/Vol] 136 mmol/L Normal 136-145 [facility] ([place]) Comment on above: Performed By: #### V IDH, LIPID, TSH, ANEU, FT3, ADIFF, GFR, CMP, CBC #### [address] [address] Total Protein 7.3 G/dL Normal 6.4-8.2 [facility] ([place]) Comment on above: Performed By: #### V IDH, LIPID, TSH, ANEU, FT3, ADIFF, GFR, CMP, CBC #### [address] [address] Urea nitrogen [Mass/Vol] 15 mg/dL Normal 7-18 [facility] ([place]) Comment on above: Performed By: #### V IDH, LIPID, TSH, ANEU, FT3, ADIFF, GFR, CMP, CBC #### [address] [address] FT3on 03-19-2024 Free T3 [Mass/Vol] 2.33 pg/mL Normal 2.30-4.00 [facility] ([place]) Comment on above: Performed By: #### V IDH, LIPID, TSH, ANEU, FT3, ADIFF, GFR, CMP, CBC #### [address] [address] LIPIDon 03-19-2024 Cholesterol [Mass/Vol] 230 mg/dL High 0-200 [facility] ([place]) Comment on above: Result Comment: Chol esterol Reference Interval: Less than 200 Desirable 200-239 Borderline high risk 240 and above High risk Performed By: #### V IDH, LIPID, TSH, ANEU, FT3, ADIFF, GFR, CMP, CBC #### [address] [address] Cholesterol in HDL [Mass/Vol] 82 mg/dL High 40-60 [facility] ([place]) Comment on above: Performed By: #### V IDH, LIPID, TSH, ANEU, FT3, ADIFF, GFR, CMP, CBC #### [address] [address] Cholesterol in LDL [Mass/Vol] 134 mg/dL High 0-130 [facility] ([place] Comment on above: Performed By: #### V IDH, LIPID, TSH, ANEU, FT3, ADIFF, GFR, CMP, CBC #### [address] [address] Triglyceride [Mass/Vol] 71 mg/dL Normal 0-150 [facility] ([place]) Comment on above: Result Comment: Trig lyceride Reference Interval: Less than 150 Normal 150-199 Borderline high risk 200-499 High risk 500 or higher Very high risk Performed By: #### V IDH, LIPID, TSH, ANEU, FT3, ADIFF, GFR, CMP, CBC #### [address] [address] TSHon 03-19-2024 TSH Qn 3.09 m[IU]/L Normal 0.36-3.74 [facility] ([place]) Comment on above: Performed By: #### V IDH, LIPID, TSH, ANEU, FT3, ADIFF, GFR, CMP, CBC #### [place] [address] [place], [place] [address] VIDHon 03-19-2024 Vit. D 25-Hydroxy 42.3 ng/mL Normal [facility] ([place]) Comment on above: Result Comment: Inte rpretive Values Based on Total 25(OH) Vitamin D: Deficient <20 ng/mL Insufficient 20 - <30 ng/mL Sufficient 30-100 ng/mL Performed By: #### V IDH, LIPID, TSH, ANEU, FT3, ADIFF, GFR, CMP, CBC #### [id number] [place], [place] [address] DBT Breast - bilateral scree tyson 11-27-2023 [facility] BD BONE DENSITY DEXA AXIAL S [facility] 04-04-2023 BD BONE DENSITY DEXA AXIAL SKELETON ORIGINAL EXAMINATION: BONE DENSITOMETRY 04/04/2023 3:56 pm TECHNIQUE: A bone density dual x-ray absorptiometry (DEXA) scan was performed of the lumbar spine and left hip. COMPARISON: None. HISTORY: ORDERING SYSTEM PROVIDED HISTORY: Reason for Exam: Osteoporosis Screening FINDINGS: T Score Left Femoral Neck: 0.2 Left Femoral Neck: 0.873 (g/cm2) T Score Left Hip: 0.2 Left Hip: 0.965 (g/cm2) T Score Lumbar Spine: 1.1 Lumbar Spine: 1.164 (g/cmd2) IMPRESSION: Normal bone mineral density by WHO criteria. *By the World Health Organization criteria: (Comparing with young normal sex matched population) - Normal: T-score at or above -1 SD (standard deviation) - Osteopenia: T-score between -1 and -2.5 SD - Osteoporosis: T-score at or below -2.5 SD Interpreted by: Fredi Ferreira DO Preliminary Report By: Fredi Ferreira DO Electronically signed By Fredi Ferreira DO Dictated Date: 04/04/2023 4:01:19 PM Prelim Date: 04/04/2023 4:04:21 PM Sign Date: 04/04/2023 4:04:21 PM Ordering Provider: MAXWELL Siddiqui [facility] ([place] LABORATORYOrdered By: SYSTEM SYSTEM on 03-13-2023 25-hydroxyvitamin D3 [Mass/Vol] 49.0 ng/mL Invalid Interpretation Code AO ADM SS Albumin BCP dye [Mass/Vol] 4.2 G/dL Invalid Interpretation Code 3.4 - 4.8 G/dL AO ADM SS Albumin/Globulin [Mass ratio] 1.3 {ratio} Invalid Interpretation Code 1.1 - 2.5 ratio AO ADM SS ALP [Catalytic activity/Vol] 85 U/L Invalid Interpretation Code 40 - 135 U/L AO ADM SS ALT With P-5'-P [Catalytic activity/Vol] 20 U/L Invalid Interpretation Code 14 - 59 U/L AO ADM SS AST With P-5'-P [Catalytic activity/Vol] 17 U/L Invalid Interpretation Code 10 - 40 U/L AO ADM SS Bilirubin [Mass/Vol] 0.5 mg/dL Invalid Interpretation Code 0.2 - 1.0 mg/dL AO ADM SS Calcium [Mass/Vol] 9.5 mg/dL Invalid Interpretation Code 8.4 - 10.2 mg/dL AO ADM SS Chloride [Moles/Vol] 98 mmol/L Invalid Interpretation Code 98 - 107 mmol/L AO ADM SS CO2 [Moles/Vol] 31 mmol/L Invalid Interpretation Code 23 - 31 mmol/L AO ADM SS Cobalamin (Vitamin B12) [Mass/Vol] 790 pg/mL Invalid Interpretation Code 211 - 911 pg/mL AH ADM SS Creatinine [Mass/Vol] 0.89 mg/dL Invalid Interpretation Code 0.55 - 1.02 mg/dL AO ADM SS Electrolyte Balance 8.0 mEq/L Invalid Interpretation Code 4.0 - 15.0 mEq/L AO ADM SS Free T3 [Mass/Vol] 2.59 pg/mL Invalid Interpretation Code 2.30 - 4.00 pg/mL AO ADM SS Free T4 [Mass/Vol] 1.15 ng/dL Invalid Interpretation Code 0.76 - 1.46 ng/dL AO ADM SS GFR/1.73 sq M.predicted among blacks MDRD (S/P/Bld) [Vol rate/Area] 74 ml/min/1.73sqm Invalid Interpretation Code AO Chemistry S GFR/1.73 sq M.predicted among non-blacks MDRD (S/P/Bld) [Vol rate/Area] 61 ml/min/1.73sqm Invalid Interpretation Code AO Chemistry S Globulin 3.3 G/dL Invalid Interpretation Code AO ADM SS Glucose [Mass/Vol] 89 mg/dL Invalid Interpretation Code 83 - 110 mg/dL AO ADM SS Potassium [Moles/Vol] 3.8 mmol/L Invalid Interpretation Code 3.5 - 5.1 mmol/L AO ADM SS Protein [Mass/Vol] 7.5 G/dL Invalid Interpretation Code 6.4 - 8.2 G/dL AO ADM SS Sodium [Moles/Vol] 137 mmol/L Invalid Interpretation Code 136 - 145 mmol/L AO ADM SS TSH Qn 2.82 m[IU]/L Invalid Interpretation Code 0.36 - 3.74 mcIU/mL AO ADM SS Urea nitrogen [Mass/Vol] 12 mg/dL Invalid Interpretation Code 7 - 18 mg/dL AO ADM SS Urea nitrogen/Creatinine [Mass ratio] 13 ratio Invalid Interpretation Code 7 - 27 ratio AO ADM SS LABORATORYOrdered By: Negra Mcfarland on 03-13-2023 Basophil, Absolute 0.1 103/mcL Invalid Interpretation Code 0.0 - 0.2 10^3/mcL AO Workflow SS Basophils/100 WBC (Bld) 1.4 % Invalid Interpretation Code 0.0 - 2.5 % AO Workflow SS Eosinophil, Absolute 0.2 103/mcL Invalid Interpretation Code 0.0 - 0.4 10^3/mcL AO Workflow SS Eosinophils/100 WBC (Bld) 3.3 % Invalid Interpretation Code 0.0 - 7.0 % AO Workflow SS Erythrocyte distribution width (RBC) [Ratio] 14.0 % Invalid Interpretation Code 11.5 - 14.5 % AO Workflow SS Hematocrit (Bld) [Volume fraction] 35.4 % Invalid Interpretation Code 37.0 - 47.0 % AO Workflow SS Hemoglobin (Bld) [Mass/Vol] 12.2 G/dL Invalid Interpretation Code 12.0 - 16.0 G/dL AO Workflow SS Lymphocyte, Absolute 2.6 103/mcL Invalid Interpretation Code 0.8 - 3.9 10^3/mcL AO Workflow SS Lymphocytes/100 WBC (Bld) 40.6 % Invalid Interpretation Code 10.0 - 50.0 % AO Workflow SS MCH (RBC) [Entitic mass] 29.3 pg Invalid Interpretation Code 27.0 - 31.2 pg AO Workflow SS MCHC 34.5 G/dL Invalid Interpretation Code 33.0 - 37.0 G/dL AO Workflow SS MCV (RBC) [Entitic vol] 85.1 fL Invalid Interpretation Code 80.0 - 94.0 fL AO Workflow SS Monocyte, Absolute 0.6 103/mcL Invalid Interpretation Code 0.2 - 1.0 10^3/mcL AO Workflow SS Monocytes/100 WBC (Bld) 9.0 % Invalid Interpretation Code 1.7 - 13.0 % AO Workflow SS Neutrophil, Absolute 2.9 103/mcL Invalid Interpretation Code 2.9 - 6.2 10^3/mcL AO Workflow SS Neutrophils/100 WBC (Bld) 45.7 % Invalid Interpretation Code 37.0 - 80.0 % AO Workflow SS Platelet mean volume (Bld) [Entitic vol] 6.5 fL Invalid Interpretation Code 7.4 - 10.4 fL AO Workflow SS Platelets (Bld) [#/Vol] 366 103/mcL Invalid Interpretation Code 130 - 400 10^3/mcL AO Workflow SS RBC (Bld) [#/Vol] 4.16 106/mcL Invalid Interpretation Code 4.20 - 5.40 10^6/mcL AO Workflow SS WBC (Bld) [#/Vol] 6.4 103/mcL Invalid Interpretation Code 4.6 - 10.8 10^3/mcL AO Workflow SS LABORATORYOrdered By: Mony Bar on 03-13-2023 Cholesterol [Mass/Vol] 240 mg/dL Invalid Interpretation Code 0 - 200 mg/dL AO ADM SS Cholesterol in HDL [Mass/Vol] 81 mg/dL Invalid Interpretation Code 40 - 60 mg/dL AO ADM SS Cholesterol in LDL [Mass/Vol] 137 mg/dL Invalid Interpretation Code 0 - 130 mg/dL AO ADM SS Triglyceride [Mass/Vol] 109 mg/dL Invalid Interpretation Code 0 - 150 mg/dL AO ADM SS LABORATORYOrdered By: Kristi Clark on 03-12-2023 Albumin DL <= 20 mg/L (U) [Mass/Vol] mcg/dL Invalid Interpretation Code AO Chemistry S Albumin/Creatinine DL <= 20 mg/L (U) [Mass ratio] Unable to Calcu Invalid Interpretation Code 0 - 30 AO Chemistry S Creatinine (U) [Mass/Vol] 29.0 mg/dL Invalid Interpretation Code 28.0 - 117.0 mg/dL AO ADM SS No Panel Informationon 11-20 [facility] LABORATORYOrdered By: Richmond Farmer on 04-25-2022 C-Reactive Protein mg/dL Invalid Interpretation Code 0.0 - 0.9 mg/dL AO Chemistry S LABORATORYOrdered By: Kristi Clark on 04-25-2022 HbA1c (Bld) [Mass fraction] 6.1 % Invalid Interpretation Code 4.3 - 6.4 % AO ADM SS Vital Signs Date Time Vital Sign Value Performing Clinician Facility 10-05-2024 17:47-0500 Diastolic Blood Pressure Non-Invasive 84 mm[Hg] ZACHERY PAPPAS DO [facility] 10-05-2024 17:47-0500 Heart rate 79 /min ZACHREY PAPPAS DO [facility] 10-05-2024 17:47-0500 Mean blood pressure 108 mm[Hg] ZACHERY PAPPAS DO [facility] 10-05-2024 17:47-0500 Respiratory rate 18 /min ZACHERY PAPPAS DO [facility] 10-05-2024 17:47-0500 Systolic Blood Pressure Non-Invasive 162 mm[Hg] ZACHERY PAPPAS DO [facility] 10-05-2024 15:52-0500 Body temperature 98.42 [degF] ZACHERY PAPPAS DO [facility] 10-05-2024 14:24-0500 Body height 167.6 cm ZACHERY PAPPAS DO [facility] 10-05-2024 14:24-0500 Body temperature 98.42 [degF] ZACHERY PAPPAS DO [facility] 10-05-2024 14:24-0500 Body weight 79.5 kg ZACHERY PAPPAS DO [facility] 10-05-2024 14:24-0500 Diastolic Blood Pressure Non-Invasive 79 mm[Hg] ZACHERY PAPPAS DO [facility] 10-05-2024 14:24-0500 Heart rate 90 /min ZACHERY PAPPAS DO [facility] 10-05-2024 14:24-0500 Respiratory rate 18 /min ZACHERY PAPPAS DO [facility] 10-05-2024 14:24-0500 Systolic Blood Pressure Non-Invasive 155 mm[Hg] ZACHERY PAPPAS DO [facility] 11-20-2022 09:08-0500 Body height 166.4 cm Rachael Simmons APRN.POLISHER APPRENTICE Work Phone: [facility] 11-20-2022 09:08-0500 Body weight 79.83 kg Rachael Simmons APRN.POLISHER APPRENTICE Work Phone: [facility] 11-20-2022 09:08-0500 Diastolic blood pressure 80 mm[Hg] Rachael Simmons APRN.POLISHER APPRENTICE Work Phone: [facility] 11-20-2022 09:08-0500 Systolic blood pressure 142 mm[Hg] Rachael Simmons APRN.POLISHER APPRENTICE Work Phone: [facility] Encounters Encounter Date Encounter Type Care Provider Facility Start: 05-13-2025 ambulatory Maxwell Chacon Facility: [facility] Start: 05-04-2025 End: 05-08-2025 ambulatory MAXWELL CHACON MD Facility:[facility] Start: 05-04-2025 End: 05-08-2025 Outreach Lab MAXWELL CHACON MD [facility] Start: 04-07-2025 End: 04-07-2025 ambulatory MAXWELL CHACON MD Facility:[facility] Start: 04-07-2025 End: 04-07-2025 Patient encounter procedure MAXWELL CHACON MD [facility] Start: 02-23-2025 End: 04-25-2025 Follow-up encounter Rachael Simmons APRN.POLISHER APPRENTICE Work Phone: OB/Gynecology Start: 02-23-2025 ambulatory RACHAEL SIMMONS Facility:[facility] Start: 02-23-2025 End: 02-23-2025 Subsequent hospital visit by physician Screen Mammo [facility] Mammogram Comment on above: Encounter for screen ing mammogram for malignant neoplasm of breast [Z12.31] Start: 10-05-2024 End: 10-05-2024 Emergency department patient visit ZACHERY PAPPAS DO [facility] Start: 03-19-2024 End: 03-19-2024 ambulatory MAXWELL CHACON MD Facility:B Start: 11-27-2023 Documentation procedure Mammog mary beth Coordinator [facility] Start: 11-27-2023 Letter encounter Mammography Coordinator [facility] Department Start: 11-27-2023 End: 11-27-2023 Subsequent hospital visit by physician Screen Mammo [facility] Mammogram Comment on above: Encounter for screen ing mammogram for malignant neoplasm of breast [Z12.31] Start: 11-26-2023 Telephone encounter Rachael neely APRN.POLISHER APPRENTICE Work Phone: [facility] Comment on above: Orders Start: 04-04-2023 End: 04-04-2023 ambulatory MAXWELL CHACON MD Facility:[facility] Start: 04-04-2023 End: 04-04-2023 Patient encounter procedure MAXWELL CHACON MD [facility] Start: 03-13-2023 End: 03-13-2023 Patient encounter procedure MAXWELL CHACON MD [facility] Start: 03-12-2023 End: 03-16-2023 Outreach Lab MAXWELL CHACON MD [facility] Start: 11-20-2022 Documentation procedure Mammog mary beth Coordinator [facility] Start: 11-20-2022 Letter encounter Mammography Coordinator [facility] Department Start: 11-20-2022 End: 11-20-2022 Subsequent hospital visit by physician Screen Mammo [facility] Mammogram Comment on above: mammogram Start: 11-20-2022 End: 11-20-2022 Patient encounter procedure Rachael Simmons APRN.POLISHER APPRENTICE Work Phone: OB/Gynecology Comment on above: Encounter for routin e gynecologic examination in Medicare patient (Primary Dx); Inclusion cyst of vulva; Encounter for screening mammogram for breast cancer Start: 11-20-2022 End: 11-20-2022 Patient encounter status Rachael Simmons APRN.POLISHER APPRENTICE Work Phone: OB/Gynecology Start: 04-25-2022 End: 04-25-2022 Patient encounter procedure MAXWELL CHACON MD [facility] Start: 12-11-2020 End: 12-11-2020 Discharged Recurring [facility]-Immunization s Procedures Date Procedure Procedure Detail Performing Clinician Start: 02-23-2025 Screening digital br east tomosynthesis bi Rachael Simmons APRN.POLISHER APPRENTICE Work Phone: Start: 11-27-2023 Screening digital br east tomosynthesis bi Rachael Simmons APRN.POLISHER APPRENTICE Work Phone: Start: 11-20-2022 Screening mammograph y bi 2-view breast inc cad Rachael Simmons APRN.POLISHER APPRENTICE Work Phone: Start: 08-31-2018 Colonoscopy MAXWELL SINGH MD Appendectomy MAXWELL Dickson Bilateral tubal ligation LAXMI CHACON MD Dilation and curettage SHAKA CHACON MD Extraction of cataract SHAKA CHACON MD History of tonsillectomy LAXMI CHACON MD Plan of Treatment Date Care Activity Detail Author Start: 06-13-2025 Influenza vaccination Influenza Vacc ine (#1) [facility] Start: 04-26-2025 Covid-19 Vaccine ( season) Covid-19 Vaccine () [facility] Start: 10-13-2024 Advance Directive Discussion Advance Directive Discussion [facility] Start: 10-13-2023 Advance Directive Discussion Advance Directive Discussion [facility] Start: 10-13-2023 Depression Assessment Depression Ass essment [facility] Start: 06-13-2023 Covid-19 Vaccine ( season) Covid-19 Vaccine ( season) [facility] Start: 06-13-2023 Influenza vaccination Influenza Vacc ine (#1) [facility] Start: 10-13-2022 ADVANCE DIRECTIVE DISCUSSION ADVANCE DIRECTIVE DISCUSSION [facility] Start: 10-13-2022 DEPRESSION ASSESSMENT DEPRESSION ASS ESSMENT [facility] Start: 2019 RSV Vaccine (1 - 1-d ose 75+ series) RSV Vaccine (1 - 1-dose 75+ series) [facility] Start: 09-01-2016 DIABETES SCREEN DIABETES SCREEN [facility] Start: 09-01-2016 Diabetes Screening Diabetes Screenin g [facility] Start: 2009 PNEUMOCOCCAL: 65+ (1 - PCV) PNEUMOCOCCAL: 65+ (1 - PCV) [facility] Start: 11-13-2009 Medicare Annual Well ness Visit Medicare Annual Wellness Visit [facility] Start: 2004 RSV Vaccine (1 - 1-d ose 60+ series) RSV Vaccine (1 - 1-dose 60+ series) [facility] Start: 1994 SHINGRIX VACCINE (1 of 2) BARNES GRIX VACCINE (1 of 2) [facility] Start: 1963 Urine microalbumin profile [facility] Start: 1962 ANNUAL PCP TEAM HVAC OPERATIONS TECHNICIAN DANIELLE DISEASE VISIT ANNUAL PCP TEAM CHRONIC DISEASE VISIT [facility] Start: 1962 Anxiety Screening Anxiety Screening [facility] Start: 1962 BP CONTROLLED (<130/80) BP CONTROLLE D (<130/80) [facility] Start: 1962 Depression Screening Depression Scre ening [facility] Start: 1962 HEPATITIS C SCREENING HEPATITIS C SC HARRIET [facility] Start: 1962 Hepatitis C screening Hepatitis C [facility] Immunizations Immunization Date Immunization Notes Care Provider Fa annmarie 10-27-2024 influenza virus vacc ine, unspecified formulation MAXWELL CHACON MD [facility] 10-27-2024 SARS-CoV-2 (COVID-19 ) [id number] MAXWELL CHACON MD [facility] 09-24-2023 influenza virus vacc ine, unspecified formulation ZACHERY PAPPAS DO [facility] 09-24-2023 SARS-CoV-2 (COVID-19 ) [id number] ZACHERY PAPPAS DO [facility] 08-14-2022 influenza virus vacc ine, unspecified formulation MAXWELL CHACON MD [facility] 08-14-2022 [id number](tozinam er 4t60ugabct uma MAXWELL CHACON MD [facility] 08-14-2022 [id number](tozinam enrique 5y-11y)bi vac ZACHERY PAPPAS DO [facility] 03-06-2022 SARS-CoV-2 (COVID-19 ) [id number] vaccine MAXWELL CHACON MD [facility] 08-23-2021 SARS-CoV-2 (COVID-19 ) mRNA-1273 vaccine MAXWELL CHACON MD [facility] 07-04-2021 influenza virus vacc ine, unspecified formulation ZACHERY PAPPAS DO [facility] 01-08-2021 [facility] (Moderna[facility] Comment on above: Result Comment: 2021: [id number] 06-09-2020 influenza virus vacc ine, unspecified formulation ZACHERY PAPPAS DO [facility] 06-09-2020 zoster vaccine recombinant ZACHERY PAPPAS DO [facility] 04-07-2020 zoster vaccine recombinant ZACHERY PAPPAS DO [facility] 07-30-2019 influenza virus vacc ine, unspecified formulation MAXWELL CHACON MD [facility] 07-30-2019 pneumococcal conjuga te vaccine, 13 vickie CHACON MD [facility] 08-04-2017 pneumococcal conjuga te vaccine, 13 vickie CHACON MD [facility] 08-08-2016 zoster vaccine, live MAXWELL CHACON MD [facility] 05-14-2013 pneumococcal polysaccharide vaccine, 23 valent ZACHERY PAPPAS DO [facility] Payers Date Payer Category Payer Self-pay [id number] 2025 Private Health Insurance [id number] 2023 Medicare [id number] 2010 Miscellaneous or Other HOSPITAL/ MEDICAL GENERIC [id number] 2010 Unknown [id number] 2010 Unknown [id number] 2009 Medicare [id number] 2009 Medicare [id number] 1944 Unknown [id number] 1944 Unknown [id number] 1944 Unknown [id number] 1944 Unknown [id number] 1944 Unknown [id number] Unknown SELF PAY INSURANCE [id number] Unknown 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 (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) [facility] Start: 03-31-2020 History SDOH Social Connections Phone 5 [facility] Start: 03-31-2020 History SDOH Social Connections Get Together 2 [facility] Start: 03-31-2020 History SDOH Social Connections [employer] 3 [facility] Start: 03-31-2020 History SDOH Social Connections Meetings 1 [facility] Start: 03-31-2020 History SDOH Physica l Activity DPW 7 [facility] Start: 03-31-2020 Education 17 [facility] Start: 1945 Sex Assigned At Not on file [facility] Start: 03-31-2020 End: 02-23-2025 History of Social function [facility] Work Phone: Start: 03-31-2020 End: 02-23-2025 Social connection and isolation panel [facility] Work Phone: Do you belong to any clubs or organizations such as rastafarian groups, unions, fraternal or athletic groups, or school groups? No [facility] Work Phone: Are you now , , , , never or living with a partner? [facility] Work Phone: How hard is it for y ou to pay for the very basics like food, housing, medical care, and heating Not hard at all [facility] Work Phone: Do you feel stress - tense, restless, nervous, or anxious, or unable to sleep at night because your mind is troubled all the time - these days [OSQ] Only a little [facility] Work Phone: (I/We) worried whejolie er (my/our) food would run out before (I/we) got money to buy more. Never true [facility] Work Phone: Sexual Orientation Jean Claude riley [facility] Start: 09-06-2019 Sex Female (finding) [facility] Goals Date Patient Goal Desired Activity /State Functional Status Date Assessment Result Facility 10-05-2024 Functional Status Independent Jean Claude palmer [facility] 10-05-2024 Functional Status Independent Jean Claude palmer [facility] 09-07-2014 Are you deaf, or do you have serious difficulty hearing No 09/07/2014 8:57 AM Jolene Sanchez MA [facility] 09-07-2014 Are you blind, or do you have serious difficulty seeing, even when wearing glasses No 09/07/2014 8:57 AM Jolene Sanchez MA [facility] 09-07-2014 Do you have serious difficulty walking or climbing stairs No 09/07/2014 8:57 AM Jolene Sanchez MA [facility] 09-07-2014 Do you have difficul ty dressing or bathing No 09/07/2014 8:57 AM Jolene Sanchez MA [facility] 09-07-2014 Because of a physica l, mental, or emotional condition, do you have difficulty doing errands alone such as visiting a physician's office or shopping No 09/07/2014 8:57 AM Jolene Sanchez MA [facility] Mental Status Date Assessment Result Facility 10-05-2024 Mental Status Orientation Oriented x 4 [facility] 10-05-2024 Mental Status [facility] 09-07-2014 Because of a physica l, mental, or emotional condition, do you have serious difficulty concentrating, remembering, or making decisions No 09/07/2014 8:57 AM Jolene Sanchez MA No [facility] Clinical Notes 11-20-2022 to 04-12-2025 Kojo Oconnell Mammo Tech - 02/23/2025 10:50 AM EDT Note Date & Type Note Facility 04-12-2025 Evaluation + Plan note Future Scheduled TestsNM Myocardial Spect Rest/Stress 04/12/25 [facility] 02-23-2025 History of Present illness Narrative Radiology Service Progress Note PATIENT NAME: Kelvin Mcintyre DATE OF SERVICE: February 23, 2025 TIME: 11:00 AM PATIENT IDENTITY VERIFICATION COMPLETED USING TWO (2) IDENTIFIERS: Name and Date of confirmed by patient verbally. FALL SCREENING: Has the patient had 2 falls in the last year or 1 fall with injury or currently using an Ambulatory Assistive Device (Walker, Cane, Wheelchair, Crutches, etc.)? No PATIENT GENDER DATA: Assigned female at . status: : No status: NO. PATIENT RELEVANT IMPLANT DATA REVIEWED: Not Applicable PATIENT PRESENTS WITH AN IMPLANTABLE OR ATTACHED DEWER: No RADIOLOGY DEPARTMENT: Mammography PERIPHERAL IV DATA: Not applicable SIGNED BY: Evie Larry February 23, 2025 11:00 AM documented in this encounter [facility] 02-23-2025 Note HNO ID: [id number] Author: KOJO PLATA Mammo Tech Service: ? Author Type: Carpet Installation Specialist Type: Progress Notes Filed: 02/23/2025 11:01 Note Text: Radiology Service Progress Note PATIENT NAME: Kelvin Mcintyre DATE OF SERVICE: February 23, 2025 TIME: 11:00 AM PATIENT IDENTITY VERIFICATION COMPLETED USING TWO (2) IDENTIFIERS: Name and Date of confirmed by patient verbally. FALL SCREENING: Has the patient had 2 falls in the last year or 1 fall with injury or currently using an Ambulatory Assistive Device (Walker, Cane, Wheelchair, Crutches, etc.)? No PATIENT GENDER DATA: Assigned female at . status: : No status: NO. PATIENT RELEVANT IMPLANT DATA REVIEWED: Not Applicable PATIENT PRESENTS WITH AN IMPLANTABLE OR ATTACHED DEWER: No RADIOLOGY DEPARTMENT: Mammography PERIPHERAL IV DATA: Not applicable SIGNED BY: Evie Larry February 23, 2025 11:00 AM [facility] 10-05-2024 Hospital Discharge instructions Patient Education 10/05/2024 17:20:31 Acute Bronchitis Acute Bronchitis Your healthcare provider has told you that you have acute bronchitis. Bronchitis is infection or inflammation of the bronchial tubes (airways in the lungs). Normally, air moves easily in and out of the airways. Bronchitis narrows the airways, making it harder for air to flow in and out of the lungs. This causes symptoms such as shortness of breath, coughing up yellow or green mucus, and wheezing. Bronchitis can be acute or chronic. Acute means the condition comes on quickly and goes away in a short time, usually within 3 to 10 days. Chronic means a condition lasts a long time and often comes back. What causes acute bronchitis? Acute bronchitis almost always starts as a viral respiratory infection, such as a cold or the flu. Certain factors make it more likely for a cold or flu to turn into bronchitis. These include being very young, being elderly, having a heart or lung problem, or having a weak immune system. Cigarette smoking also makes bronchitis more likely. When bronchitis develops, the airways become swollen. The airways may also become infected with bacteria. This is known as a secondary infection. Diagnosing acute bronchitis Your healthcare provider will examine you and ask about your symptoms and health history. You may also have a sputum culture to test the fluid in your lungs. Chest X-rays may be done to look for infection in the lungs. Treating acute bronchitis Bronchitis usually clears up as the cold or flu goes away. You can help feel better faster by doing the following: Take medicine as directed. You may be told to take ibuprofen or other dhsk-yrx-hxdshca medicines. These help relieve inflammation in your bronchial tubes. Your healthcare provider may prescribe an inhaler to help open up the bronchial tubes. Most of the time, acute bronchitis is caused by a viral infection. Antibiotics are usually not prescribed for viral infections. Drink plenty of fluids, such as water, juice, or warm soup. Fluids loosen mucus so that you can cough it up. This helps you breathe more easily. Fluids also prevent dehydration. Make sure you get plenty of rest. Do not smoke. Do not allow anyone else to smoke in your home. Recovery and follow-up Follow up with your doctor as you are told. You will likely feel better in a week or two. But a dry cough can linger beyond that time. Let your doctor know if you still have symptoms (other than a dry cough) after 2 weeks, or if you re prone to getting bronchial infections. Take steps to protect yourself from future infections. These steps include stopping smoking and avoiding tobacco smoke, washing your hands often, and getting a yearly flu shot. When to call your healthcare provider Call the healthcare provider if you have any of the following: Fever of 100.4 F (38.0 C) or higher, or as advised Symptoms that get worse, or new symptoms Trouble breathing Symptoms that don t start to improve within a week, or within 3 days of taking antibiotics 2868-0854 [employer]. [address] [place] [address]. All rights reserved. This information is not intended as a substitute for professional medical care. Always follow your healthcare professional's instructions. Follow Up Care 10/05/2024 13:56:33 With:MAXWELL CHACON MD Address: [address] [place] [address]- When:2-4 days [facility] 10-05-2024 Note Discharge Instructions Thank you for allowing [facility] to assist you with your healthcare needs. The following is important discharge information regarding your hospital visit. Diagnosis from Today's Visit RSV bronchitis What to Do Next Instructions from Your Care Team Please follow up with your PCP and return to the ED with any new or worsening symptoms. No qualifying data available. Post Acute Orders No qualifying data available. You Need to Schedule the Following Appointments Follow Up with MAXWELL CHACON MD When:Within 2-4 days Where:[address] [place] [address]- Allergies penicillin Medications Please ask your primary doctor or pharmacist before taking any other medication not listed, including over the counter drugs, herbal medications, vitamins and or supplements as they may interact with your home medications. What How Much When Instructions Last Dose Unchanged aspirin (aspirin 81 mg oral delayed release tablet) 1 tab(s) by mouth Once a day Unchanged hydroCHLOROthiazide (hydroCHLOROthiazide 25 mg oral tablet) 1 tab(s) by mouth Once a day Unchanged levothyroxine (levothyroxine 50 mcg (0.05 mg) oral tablet) 1 tab(s) by mouth Once a day Unchanged multivitamin (Multivitamin) 1 tab(s) by mouth Every day Please take this list to your next doctor s visit. Bring all medications you take, including over the counter medications, herbals and other supplements with you to your doctor s visit. Patients and families are reminded to discard old lists and to update any records with all medication providers or retail pharmacies. Education Materials Acute Bronchitis Your healthcare provider has told you that you have acute bronchitis. Bronchitis is infection or inflammation of the bronchial tubes (airways in the lungs). Normally, air moves easily in and out of the airways. Bronchitis narrows the airways, making it harder for air to flow in and out of the lungs. This causes symptoms such as shortness of breath, coughing up yellow or green mucus, and wheezing. Bronchitis can be acute or chronic. Acute means the condition comes on quickly and goes away in a short time, usually within 3 to 10 days. Chronic means a condition lasts a long time and often comes back. What causes acute bronchitis? Acute bronchitis almost always starts as a viral respiratory infection, such as a cold or the flu. Certain factors make it more likely for a cold or flu to turn into bronchitis. These include being very young, being elderly, having a heart or lung problem, or having a weak immune system. Cigarette smoking also makes bronchitis more likely. When bronchitis develops, the airways become swollen. The airways may also become infected with bacteria. This is known as a secondary infection. Diagnosing acute bronchitis Your healthcare provider will examine you and ask about your symptoms and health history. You may also have a sputum culture to test the fluid in your lungs. Chest X-rays may be done to look for infection in the lungs. Treating acute bronchitis Bronchitis usually clears up as the cold or flu goes away. You can help feel better faster by doing the following: Take medicine as directed. You may be told to take ibuprofen or other mdzo-oxl-hifules medicines. These help relieve inflammation in your bronchial tubes. Your healthcare provider may prescribe an inhaler to help open up the bronchial tubes. Most of the time, acute bronchitis is caused by a viral infection. Antibiotics are usually not prescribed for viral infections. Drink plenty of fluids, such as water, juice, or warm soup. Fluids loosen mucus so that you can cough it up. This helps you breathe more easily. Fluids also prevent dehydration. Make sure you get plenty of rest. Do not smoke. Do not allow anyone else to smoke in your home. Recovery and follow-up Follow up with your doctor as you are told. You will likely feel better in a week or two. But a dry cough can linger beyond that time. Let your doctor know if you still have symptoms (other than a dry cough) after 2 weeks, or if you re prone to getting bronchial infections. Take steps to protect yourself from future infections. These steps include stopping smoking and avoiding tobacco smoke, washing your hands often, and getting a yearly flu shot. When to call your healthcare provider Call the healthcare provider if you have any of the following: Fever of 100.4 F (38.0 C) or higher, or as advised Symptoms that get worse, or new symptoms Trouble breathing Symptoms that don t start to improve within a week, or within 3 days of taking antibiotics [id number] [employer]. [address] [place] [address], [place] [address]. All rights reserved. This information is not intended as a substitute for professional medical care. Always follow your healthcare professional's instructions. Additional Information VACCINATE! IT SAVES LIVES! Members of the community who have not yet received the COVID-19 vaccine and would like to receive it can visit one of [facility] vaccine clinics. There are many vaccine clinic locations within the [facility]. For locations and available times, please visit www.gettheshot.coronavirus.[place].go v/. It is important to note that some COVID mobile vaccine clinics are held outdoors and may be canceled in rainy or stormy conditions. To learn more about pediatric vaccinations (ages 5-11), we invite you to visit the [facility] webpage. https://www.[facility].org/pag es/5109-Zhiwm-Tljhmvyhpov-Frequent zu-Etusc-Zwdphaqud.html To learn more about the COVID-19 vaccine, we invite you to visit the CDC website for a list of frequently asked questions. https://www.cdc.gov/coronavirus/20 19-ncov/vaccines/faq.html [facility] Patient Portal Access Instructions: Stay connected with your healthcare team and access your personal medical information anytime with the [facility] Patient Portal. If you would like a full copy of your medical records please contact the [facility] Medical Records Department Friday through Friday between 8a.m. and 4:30p.m. Please follow the directions below to access the portal: 1.Access the email account you provided upon registration to the [facility].2.Look for an invitation email from [facility].3.Open the email and access the invitation link: Accept Invitation to [facility]4.Fill in the required mariano to create your account. Sign into [email or web address] with your username and password that you created in the above steps to stay up to date. You can then view a summary of results, a summary of your visits, and the ability to download your summaries to your computer or send the information securely to a physician. Remember that your healthcare information is confidential, so carefully consider who you will allow to register on the [facility] Patient Portal for access to your information. You can also access the [facility] Patient Portal on the [employer]. Simply click on Health Records under Health Data and then click on the [facility] logo. HOW TO SAFELY DISPOSE OF PRESCRIPTION MEDICATIONS Please use one of the following methods to safely dispose of your unused medications. 1.Use a drug disposal kit: the drug disposal pouch allows you to safely discard your old and unused drugs. Ask your nurse to give you one when you are discharged.2.Visit a local take-back location: Many local pharmacies and police departments have programs that collect old and unwanted prescription drugs. Call your local pharmacy or go to http://[employer].SeatSwapr/7Q9Uz9y to find one close to you.3.Make use of household items: Use cat litter or old coffee grounds to dispose medications if other options are not available. Mix your drugs with these household products, seal them in an airtight container and throw it into the garbage. Call [facility]: [phone] to be sure your drugs can be disposed of in this way. Some medicines may require a different approach.4.Never flush your medications down the toilet. IF YOU HAVE BEEN PRESCRIBED AN OPIOIDS FOR PAIN If you have been prescribed an opioid (such as hydrocodone, oxycodone or morphine), it is critical to understand the possible side effects and risks of opioid pain medications. Even when taken as directed, opioids can have several side effects including: Tolerance, meaning you might need to take more of a medication for the same pain relief. Nausea, vomiting and/or constipation. Sleepiness, dizziness, dry mouth, confusion, depression or itching. Physical dependence, meaning you have withdrawal symptoms when a medication is stopped ? this can develop within a few days. KNOW YOUR RESPONSIBILITIES It is important to know exactly how much and how often to take the opioid pain medications you are prescribed. Never take opioids in higher amounts or more often than prescribed. Do not combine opioids with alcohol or other drugs that cause drowsiness, such as benzodiazepines, also known as benzos, including diazepam and alprazolam, muscle relaxants or sleep aids. Never sell or share prescription opioids. This is illegal. Store opioids in a secure place and out of reach of others (including children, family, friends and visitors). The last page(s) of this document has been signed and retained as a CHART COPY Signatures Patient Education Materials Acute Bronchitis Medication Leaflets My discharge plan and instructions have been reviewed and explained to me and I,KELVIN MCINTYRE understand my current condition and have read and understand these discharge instructions. I have received a written copy of the plan/instructions. If I have questions, I am aware that I should contact my doctor. 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 Atherosclerotic aorta. Focal consolidation, vascular congestion, pleural effusion, or pneumothorax. No acute osseous findings. IMPRESSION: No acute radiographic findings. I have personally reviewed the images of this examination and agree with the resident's findings and interpretation. Interpreted by: Lela Esteves MD Preliminary Report By: Yusra Barbourshavonne Electronically signed By Lela Esteves MD Dictated Date: 10/05/2024 4:10:03 PM Prelim Date: 10/05/2024 4:10:59 PM Sign Date: 10/05/2024 4:36:36 PM Ordering Provider: [facility]02-15-2024 Miscellaneous Notes* Letter - Coordinator, Mammography - 11/27/2023 11:31 AM EST November 27, 2023 PID: [id number] Kelvin Mcintyre [address] [place] [address] Dear Ms. Mcintyre, We are pleased to inform you that the results of your recent breast imaging exam on 11/27/2023 are normal. Early detection of cancer is very important. We also understand recommendations regarding breast cancer screening are controversial. Please discuss with your primary care provider which strategy is best for you and whether a mammogram is right for you. Your imaging studies and report will be kept on file at [facility] as part of your permanent medical record and are available for your continuing care. Thank you for allowing us to help in meeting your health care needs. Sincerely, Dr. Amos Interpreting Radiologist [facility] (Normal over 40) documented in this encounter[facility] History of Present illness Narrative* Andrea Oliver, Mammo Tech - 11/27/2023 11:30 AM EST Radiology Service Progress Note PATIENT NAME: Kelvin Mcintyre DATE OF SERVICE: November 27, 2023 TIME: 11:12 AM PATIENT IDENTITY VERIFICATION COMPLETED USING TWO (2) IDENTIFIERS: Name and Date of confirmedby patient verbally. FALL SCREENING: Has the patient had 2 falls in the last year or 1 fall with injury or currently using an Ambulatory Assistive Device (Walker, Cane, Wheelchair, Crutches, etc.)? No PATIENT GENDER DATA: Female. status: : No status: NO. PATIENT RELEVANT IMPLANT DATA REVIEWED: Not Applicable PATIENT PRESENTS WITH AN IMPLANTABLE OR ATTACHED DEWER: No RADIOLOGY DEPARTMENT: Mammography PERIPHERAL IV DATA: Not applicable SIGNED BY: Evie Edwards November 27, 2023 11:12 AM documented in this encounterSelect [facility] Miscellaneous Notes* Telephone Encounter - Jagruti Olvera - 11/27/2023 9:14 AM EST Patient is scheduled 11/27/2023 for Mammogram with Víctor. Jagruti Olvera PSS * Telephone Encounter - Rachael Simmons APRN.CNP - 11/26/2023 12:58 PM EST Adele with víctor due to dense breast tissue. Please contact pt. Rachael Simmons APRN.CNP * Telephone Encounter - Priti Castillo RN - 11/26/2023 11:43 AM EST Last had annual exam and mammogram on 11/20/22. Please file pended mammogram order. Will need to contact patient to schedule. Priti Castillo RN * Telephone Encounter - Ingris Dunham - 11/26/2023 10:45 AM EST Patient calling and requesting a mammogram screening order. Her last Mammogram was 11/20/2022. Pleasecall patient back at [phone] and advice when order is placed. Ingris Dunham documented in this encounterSelect [facility] Note ORIGINAL EXAMINATION: BONE DENSITOMETRY 04/04/2023 3:56 pm TECHNIQUE: A bone density dual x-ray absorptiometry (DEXA) scan was performed of the lumbar spine and left hip. COMPARISON: None. HISTORY: ORDERING SYSTEM PROVIDED HISTORY: Reason for Exam: Osteoporosis Screening FINDINGS: T Score Left Femoral Neck: 0.2 Left Femoral Neck: 0.873 (g/cm2) T Score Left Hip: 0.2 Left Hip: 0.965 (g/cm2) T Score Lumbar Spine: 1.1 Lumbar Spine: 1.164 (g/cmd2) IMPRESSION: Normal bone mineral density by WHO criteria. *By the World Health Organization criteria: (Comparing with young normal sex matched population) - Normal: T-score at or above -1 SD (standard deviation) - Osteopenia: T-score between -1 and -2.5 SD - Osteoporosis: T-score at or below -2.5 SD Interpreted by: Fredi Ferreira DO Preliminary Report By: Fredi Ferreira DO Electronically signed By Fredi Ferreira DO Dictated Date: 04/04/2023 4:01:19 PM Prelim Date: 04/04/2023 4:04:21 PM Sign Date: 04/04/2023 4:04:21 PM Ordering Provider: MAXWELL [facility]06-23-2023 Note ORIGINAL EXAMINATION: BONE DENSITOMETRY 04/04/2023 3:56 pm TECHNIQUE: A bone density dual x-ray absorptiometry (DEXA) scan was performed of the lumbar spine and left hip. COMPARISON: None. HISTORY: ORDERING SYSTEM PROVIDED HISTORY: Reason for Exam: Osteoporosis Screening FINDINGS: T Score Left Femoral Neck: 0.2 Left Femoral Neck: 0.873 (g/cm2) T Score Left Hip: 0.2 Left Hip: 0.965 (g/cm2) T Score Lumbar Spine: 1.1 Lumbar Spine: 1.164 (g/cmd2) IMPRESSION: Normal bone mineral density by WHO criteria. *By the World Health Organization criteria: (Comparing with young normal sex matched population) - Normal: T-score at or above -1 SD (standard deviation) - Osteopenia: T-score between -1 and -2.5 SD - Osteoporosis: T-score at or below -2.5 SD Interpreted by: Fredi Ferreira DO Preliminary Report By: Fredi Ferreira DO Electronically signed By Fredi Ferreira DO Dictated Date: 04/04/2023 4:01:19 PM Prelim Date: 04/04/2023 4:04:21 PM Sign Date: 04/04/2023 4:04:21 PM Ordering Provider: MAXWELL [facility]02-08-2023 Miscellaneous Notes* Letter - Mammography Coordinator - 11/20/2022 11:39 AM EST November 21, 2022 PID: [id number] Kelvin Mcintyre [address] [place] [address] Dear Ms. Mcintyre, We are pleased to inform you that the results of your recent breast imaging exam on 11/20/2022 are normal. Your mammogram demonstrates that you have dense breast tissue, which could hide abnormalities. Dense breast tissue, in and of itself, is a relatively common condition. Therefore, this information is not provided to cause undue concern; rather, it is to raise your awareness and promote discussion with your health care provider regarding the presence of dense breast tissue in addition to other riskfactors. Early detection of cancer is very important. We also understand recommendations regarding breast cancer screening are controversial. Please discuss with your primary care provider which strategy is best for you and whether a mammogram is right for you. Your imaging studies and report will be kept on file at [facility] as part of your permanent medical record and are available for your continuing care. Thank you for allowing us to help in meeting your health care needs. Sincerely, Dr. Lyon Interpreting Radiologist [facility] (Normal over 40) documented in this encounterSelect [facility] History of Present illness Narrative* Vane Greenberg, RT(R) - 11/20/2022 10:50 AM EST Radiology Service Progress Note PATIENT NAME: Kelvin Mcintyre DATE OF SERVICE: November 20, 2022 TIME: 10:48 AM PATIENT IDENTITY VERIFICATION COMPLETED USING TWO (2) IDENTIFIERS: Name and Date of confirmedby patient verbally. FALL SCREENING: Has the patient had 2 falls in the last year or 1 fall with injury or currently using an Ambulatory Assistive Device (Walker, Cane, Wheelchair, Crutches, etc.)? No PATIENT GENDER DATA: Female. status: : No status: NO. PATIENT RELEVANT IMPLANT DATA REVIEWED: Not Applicable RADIOLOGY DEPARTMENT: Mammography PERIPHERAL IV DATA: Not applicable SIGNED BY: RT Kelly(R) November 20, 2022 10:48 AM documented in this encounterSelect [facility] History of Present illness Narrative* Rachael Simmons APRN.[facility] - 11/20/2022 8:56 AM EST Joy Operator Helper offered: Patient declines. Kelvin is a 76 year old who presents for an annual gynecologic exam with complaints, has some hard white bumps on vulva . Lumps are hard and painless. Postmenopausal: Yes since age 49 HRT use: Yes, oral estrogen How lon-4 years. Last Pap: 2008 normal HPV: 2007 negative History of abnormal pap: No Last mammogram: 2020 normal History of abnormal mammogram: No Sexually active: No Vaginal dryness: Yes but not bothersome Documentation from previous visit of 03/31/2020 was copied and pasted, documentation has been reviewed and edited as necessary for today's visit. OB History T0 L2 SAB1 IAB0 Ectopic0 Multiple0 Live Births0 Comment: 2 vaginal deliveries 1 D&C for missed ab Child Welfare Assistant History LMP: Postmenopausal Age at Menarche: Age at First : Age at Menopause: Child Welfare Assistant History Comments: Sexual Activity: Not Currently; No partner data on record Contraception: No contraception data on record PAST MEDICAL HISTORY Diagnosis Date Hypertension Hypothyroid Other kyphoscoliosis and scoliosis PAST SURGICAL HISTORY Procedure Laterality Date APPENDECTOMY CATARACT SURGERY, COMPLEX both eyes COLONOSCOP W/ OR W/O [facility] SPEC 2017 Colonoscopy LIGATE FALLOPIAN TUBE Tubal ligation PAST SURGICAL HISTORY OF 07/19 cataract removal on right eye PAST SURGICAL HISTORY OF 11/2017 seen derm to have spots removed off face REMOVAL OF TONSILS,<12 Y/O Tonsillectomy FAMILY HISTORY Problem Relation Age of Onset Heart Mother CHF Stroke Father Heart Brother Heart Brother Diabetes Brother Lipids Brother SOCIAL HISTORY Social History Tobacco Use Smoking status: Never Smokeless tobacco: Never Vaping Use Vaping Use: Never used Substance Use Topics Alcohol use: No Drug use: No REVIEW OF SYSTEMS Abdomen: No abdominal pain, nausea, vomiting, diarrhea, or constipation. No bloating, early satiety, indigestion, or increased flatulence. Bladder: No dysuria, gross hematuria, urinary frequency, urinary urgency, or incontinence Breast: No breast lumps, nipple d/c, overlying skin changes, redness or skin retraction Allergies and current medication updated:Yes EXAM: BP 142/80 Ht 5' 5.5 (1.66m) Wt 176 lb (79.8kg) BMI 28.83 kg/(m^2). Home BP 130/80 GENERAL: pleasant, female in no apparent distress HEENT: Normocephalic, atraumatic, mucus membranes moist, and no lesions NECK: Supple, full range of motion, no adenopathy, and thyroid normal DERMATOLOGY: Normal, without lesions, non-icteric, and non-hirsute BREAST: soft, non-tender, symmetric, no dominant mass, normal nipple-areolar complex, no lymphadenopathy, and no nipple discharge CHEST: Normal inspiratory effort ABDOMEN: soft, non-tender, and no masses PELVIC: external genitalia normal, normal Bartholin's glands, urethra, Gerrard's glands, no vulvar lesions, no cervical lesions, physiologic discharge present, normal appearing perineal body and perianal region, inclusion cysts x 2 right labia. + vaginal atrophy. BIMANUAL: uterus normal size, shape and consistency, no adnexal masses, and non-tender RECTOVAGINAL: deferred. NEURO: alert and oriented x3,exam grossly non-focal EXTREMITIES: normal ASSESSMENT/PLAN: 1) Health maintenance: Pap/HPV screening no longer needed Mammogram ordered Nutrition, exercise and routine health maintenance exams reviewed. Calcium/Vitamin D supplementation information provided. Colon cancer screening: up to date with screening BMD: declined 2) Follow up one year or sooner as needed Rachael Simmons APRN.CNP [facility] No data available for this section [facility] Evaluation + Plan note Future Appointments Appointment Date:03/27/2023 02:30:00 PM Scheduled Provider:MAXWELL CHACON MD Location:[facility] Appointment Type:PC OV Future Scheduled Tests Radiology* BD Bone Density DEXA Axial Skeleton 03/12/23 [facility] Evaluation + Plan note Future Appointments Appointment Date:04/08/2025 10:00:00 AM Scheduled Provider:MAXWELL CHACON MD Location:[facility] Appointment Type:PC Wellness Medicare [facility] Evaluation + Plan note Future Appointments Appointment Date:04/12/2025 03:00:00 PM Scheduled Provider:MAXWELL CHACON MD Location:[facility] Appointment Type:PC Wellness Medicare [facility] Evaluation note* Diagnosis Encounter for routine gynecologic examination in Medicare patient- Primary Inclusion cyst of vulva Other specified noninflammatory disorder of vulva and perineum Encounter for screening mammogram for breast cancer documented in this encounter [facility] note* Diagnosis Encounter for screening mammogram for breast cancer Encounter for routine gynecologic examination in Medicare patient documented in this encounter [facility] note* Diagnosis Encounter for screening mammogram for malignant neoplasm of breast- Primary Other screening mammogram Heterogeneously dense tissue of both breasts on mammography documented in this encounter [facility] note* Diagnosis Encounter for screening mammogram for malignant neoplasm of breast Other screening mammogram Heterogeneously dense tissue of both breasts on mammography documented in this encounter [facility] note* Diagnosis Encounter for screening mammogram for malignant neoplasm of breast Other screening mammogram documented in this encounter [facility] Discharge instructions No data available for this section [facility] Progress note No data available for this section [facility] Reason for referral (narrative)* Diagnostic Procedure Only (Routine) - Closed Specialty Diagnoses / Procedures Referred By Contac t Referred To Contact [facility] Diagnoses Encounter for screening mammogram for breast cancer Encounter for routine gynecologic examination in Medicare patient Procedures ADELE SCREENING SCREENING MAMMOGRAPHY BI 2-VIEW BREAST INC Rachael Diane, HAILEE.POLISHER APPRENTICE [address] [place] [address] Imaging [address] [place] [address] Referral ID Status Reason Start Date Expiration Date V isits Requested Visits Authorized [id number] Closed Auto-Generate d Referral 11/20/2022 12/20/2023 1 1 [facility] for referral (narrative)* Diagnostic Procedure Only (Routine) - Closed Specialty Diagnoses / Procedures Referred By Janet muse Referred To Contact [facility] Diagnoses Encounter for screening mammogram for breast cancer Encounter for routine gynecologic examination in Medicare patient Procedures ADELE SCREENING SCREENING MAMMOGRAPHY BI 2-VIEW BREAST INC Rachael Diane APRN.CNP [address] [place] [address] Imaging [address] [facility] [facility] [place] [place] [address] Referral ID Status Reason Start Date Expiration Date V isits Requested Visits Authorized [id number] Closed Auto-Generate d Referral 11/20/2022 12/20/2023 1 1 [facility] for referral (narrative)* Diagnostic Procedure Only (Routine) - Closed Specialty Diagnoses / Procedures Referred By Janet muse Referred To Contact [facility] Diagnoses Encounter for screening mammogram for malignant neoplasm of breast Heterogeneously dense tissue of both breasts on mammography Procedures ADELE SCREENING W VÍCTOR SCREENING DIGITAL BREAST TOMOSYNTHESIS BI SCREENING MAMMOGRAPHY BI 2-VIEW BREAST INC Rachael Diane APRN.POLISHER APPRENTICE [address] [place] [address] Imaging [address] [place] [address] Referral ID Status Reason Start Date Expiration Date V isits Requested Visits Authorized [id number] Closed Auto-Generate d Referral 11/26/2023 12/25/2024 1 1 [facility] for referral (narrative)* Diagnostic Procedure Only (Routine) - Closed Specialty Diagnoses / Procedures Referred By Janet muse Referred To Contact [facility] Diagnoses Encounter for screening mammogram for malignant neoplasm of breast Heterogeneously dense tissue of both breasts on mammography Procedures ADELE SCREENING W VÍCTOR SCREENING DIGITAL BREAST TOMOSYNTHESIS BI SCREENING MAMMOGRAPHY BI 2-VIEW BREAST INC Rachael Diane APRN.POLISHER APPRENTICE [address] [place] [place] [address] [facility] [address] [place] [address] Referral ID Status Reason Start Date Expiration Date V isits Requested Visits Authorized [id number] Closed Auto-Generate d Referral 11/26/2023 12/25/2024 1 1 [facility] for visit Narrative* Diagnostic Procedure Only (Routine) - Closed Specialty Diagnoses / Procedures Referred By Janet muse Referred To Contact [facility] Diagnoses Encounter for screening mammogram for breast cancer Encounter for routine gynecologic examination in Medicare patient Procedures ADELE SCREENING SCREENING MAMMOGRAPHY BI 2-VIEW BREAST INC Rachael Diane APRN.POLISHER APPRENTICE [address] [place] [address] [facility] [address] [place] [address] Referral ID Status Reason Start Date Expiration Date V isits Requested Visits Authorized [id number] Closed Auto-Generate d Referral 11/20/2022 12/20/2023 1 1 [facility] for visit Narrative* Diagnostic Procedure Only (Routine) - Closed Specialty Diagnoses / Procedures Referred By Janet muse Referred To Contact [facility] Diagnoses Encounter for screening mammogram for malignant neoplasm of breast Heterogeneously dense tissue of both breasts on mammography Procedures ADELE SCREENING W VÍCTOR SCREENING DIGITAL BREAST TOMOSYNTHESIS BI SCREENING MAMMOGRAPHY BI 2-VIEW BREAST INC Rachael Diane APRN.POLISHER APPRENTICE [address] [place] [place] [address] [facility] [address] [place] [address] Referral ID Status Reason Start Date Expiration Date V isits Requested Visits Authorized [id number] Closed Auto-Generate d Referral 11/26/2023 12/25/2024 1 1 [facility] N[facility]* Diagnostic Procedure Only (Routine) - Closed Specialty Diagnoses / Procedures Referred By Janet t Referred To Contact [facility] Diagnoses Encounter for screening mammogram for malignant neoplasm of breast Procedures ADELE SCREENING W VÍCTOR SCREENING DIGITAL BREAST TOMOSYNTHESIS BI SCREENING MAMMOGRAPHY BI 2-VIEW BREAST INC Rachael Diane APRN.POLISHER APPRENTICE [address] [place] [address] Phone: tel: fax: [facility] [address] [place] [address] Referral ID Status Reason Start Date Expiration Date V isits Requested Visits Authorized [id number] Closed Auto-Generate d Referral 02/02/2025 03/04/2026 1 1 [facility] Chief Complaint and Reason for Visit Chief Complaint MODERNA VACCINE Assessments No Assessments Information Available Summary Purpose Family History No Family History Records Found No data available for this section No Family History Records Found No data available for this section No Family History Records FoundNo Family History Records Found No data available for this section Advance Directives No Advanced Directives Records FoundNo Advanced Directives Records FoundNo Advanced Directives Records FoundNo Advanced Directives Records Found Additional Source Comments Care Team (unrecognized sect ion and content) Care Team Personnel Name: MAXWELL CHACON MD Position: P4 Physician - Primary Care Med Service: Active Provider Member Role: Primary Care Physician Address: Address: [address] [place] [address] [address] [facility] [place], [place] [id number] [place] [address] Care Team Related Persons Name: GREGORIO MCINTYRE Source Comments (unrecognize d section and content) In the event this informatio n is protected by the Federal Confidentiality of Alcohol and Drug Abuse Patient Records regulations: The Federal rules restrict any use of the information to criminally investigate or prosecute any alcohol or drug abuse patient.[facility] the event this information is protected by the Federal Confidentiality of Alcohol and Drug Abuse Patient Records regulations: The Federal rules restrict any use of the information to criminally investigate or prosecute any alcohol or drug abuse patient.[facility] the event this information is protected by the Federal Confidentiality of Alcohol and Drug Abuse Patient Records regulations: The Federal rules restrict any use of the information to criminally investigate or prosecute any alcohol or drug abuse patient.[facility] the event this information is protected by the Federal Confidentiality of Alcohol and Drug Abuse Patient Records regulations: The Federal rules restrict any use of the information to criminally investigate or prosecute any alcohol or drug abuse patient.[facility] the event this information is protected by the Federal Confidentiality of Alcohol and Drug Abuse Patient Records regulations: The Federal rules restrict any use of the information to criminally investigate or prosecute any alcohol or drug abuse patient.[facility] the event this information is protected by the Federal Confidentiality of Alcohol and Drug Abuse Patient Records regulations: The Federal rules restrict any use of the information to criminally investigate or prosecute any alcohol or drug abuse patient.[facility] the event this information is protected by the Federal Confidentiality of Alcohol and Drug Abuse Patient Records regulations: The Federal rules restrict any use of the information to criminally investigate or prosecute any alcohol or drug abuse patient.[facility] the event this information is protected by the Federal Confidentiality of Alcohol and Drug Abuse Patient Records regulations: The Federal rules restrict any use of the information to criminally investigate or prosecute any alcohol or drug abuse patient.[facility] Reason for Visit (unrecogniz ed section and content) Reason Comments Well Woman Reason Comments Orders Care Teams (unrecognized sec tion and content) Care Team Personnel Name: MAXWELL CHACON MD Position: P4 Physician - Primary Care Member Role: Primary Care Physician Address: [address] [place] [address] Telecom: Care Team Related Persons Name: PAUL MCINTYRE 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 Equipment 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 Relationship Specialty Start Date End Date Maxwell Chacon MD [address] [place], [place] [address] PCP - General 12/31/06 Electrical Equipment 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 Relationship Specialty Start Date End Date Maxwell Chacon MD [address] [place], [place] [id number] PCP - General 12/31/06 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 Equipment 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 Relationship Specialty Start Date End Date Maxwell Chacon MD [address] [place], [place] [id number] PCP - General 12/31/06 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 Equipment 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 Relationship Specialty Start Date End Date Maxwell Chacon MD [address] [place], [place] [id number] PCP - General 12/31/06 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 Equipment 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 Relationship Specialty Start Date End Date Maxwell Chacon MD [address] [place], [place] [id number] PCP - General 12/31/06 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 Equipment 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 Relationship Specialty Start Date End Date Maxwell Chacon MD [address] [place] [address] PCP - General 12/31/06 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 Equipment 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 Relationship Specialty Start Date End Date Maxwell Chacon MD [address] [place], [place] [id number] PCP - General 12/31/06 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 Equipment 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 Relationship Specialty Start Date End Date Maxwell Chacon MD [address] [place], [place] [id number] PCP - General 12/31/06 INFORMATION SOURCE (unrecogn ized section and content) DATE CREATED AUTHOR 03/21/2024 [facility] ([place]) DATE CREATED AUTHOR AUTHOR'S ORGANIZ ATION 02/24/2025 [facility] DATE CREATED AUTHOR AUTHOR'S ORGANIZ ATION 05/08/2025 [facility] DATE CREATED AUTHOR AUTHOR'S ORGANIZ ATION 05/08/2025 [facility] FOR RECORDS PERTAINING TO PATIENTS WHO ARE OR HAVE BEEN ENROLLED IN A CHEMICAL DEPENDENCY/SUBSTANCEABUSE PROGRAM, SOME INFORMATION MAY BE OMITTED. This clinical summary was aggregated from multiple sources. Caution should be exercised in using it in the provision of clinical care. This summary normalizes information from multiple sources, and as a consequence, information in this document may materially change the coding, format and clinical context of patient data. In addition, data may be omitted in some cases. CLINICAL DECISIONS SHOULD BE BASED ON THE PRIMARY CLINICAL RECORDS. [employer] provides no warranty or guarantee of the accuracy or completeness of information in this document.
--- NOTE | 2025-05-13 17:56 | STRESSREP ---
Stress Test Report Exercise myocardial perfusion stress test. 79-year-old lady with a history of chest pain Stress protocol: Resting EKG demonstrates normal sinus rhythm with a rate of 61 bpm resting blood pressure is 162/78 mmHg. The patient exercised according to the regular [place] protocol for a total duration of 3 minutes and 15 seconds attaining a maximum heart rate of 157 bpm which was 112% of maximum predicted heart rate; the maximum workload was 5.2 metabolic equivalents. At rest there were no ST or T wave changes noted to suggest ischemia and at peak exercise upsloping ST changes only were noted which did not meet the criteria for ischemia. The patient did develop a left bundle branch block which was rate dependent with exercise. No clinical angina was noted the test was terminated due to the target heart rate being achieved/fatigue. The peak blood pressure was 190/88 mmHg. Rate-pressure product was 25,000. Myocardial perfusion protocol. 11.3 mCi of technetium 99m sestamibi was injected at rest. The patient exercised according to regular [place] protocol for total duration of 3 minutes and 15 seconds and at peak exercise 33.5 mCi of technetium 99m sestamibi was injected stress images were obtained stress and rest images were reconstructed in comparing the short axis vertical long and horizontal long axis. Gated images were also obtained. Perfusion SPECT analysis: Review of the stress images demonstrate normal uptake of tracer noted in all areas of the myocardium. There is an area of anteroseptal perfusion defect which is present at rest and also with stress. A small amount of anteroseptal ischemia cannot be completely excluded. Gated SPECT analysis: The gated ejection fraction is 43%. Conclusion: Exercise myocardial perfusion stress test with probable mild anteroseptal ischemia. Rate dependent bundle branch block noted. Mildly reduced left ventricular ejection fraction.
== END | disposition home or self-care (01) ==
LOC: CVS 06:36
PROVIDERS: PCP Family Medicine; Referring Provider Family Medicine; Visit Provider Family Medicine
DX: Z00.00 Encounter for general adult medical examination without abnormal findings (principal); R07.89 Other chest pain; R05.3 Chronic cough; R06.02 Shortness of breath; I10 Essential (primary) hypertension
CPT/HCPCS: 78452; 93017; A9500; A4216

== ENCOUNTER → 2025-05-24 | Outpatient (CLI) | payer MEDICARE, OTHER, SELFPAY ==
--- NOTE | 2025-05-24 10:30 | RAD_ITS ---
PROCEDURE: CHEST PA AND LATERAL 05/24/2025 REASON FOR EXAM: [place] TECHNIQUE: CHEST PA AND LATERAL FINDINGS: The heart is normal in size. The lungs are clear. No acute osseous abnormalities. RAD/Chest PA and Lateral IMPRESSION: NO ACUTE FINDINGS. Reading Location: [id number]
[2025-05-24 11:02] LABS: Hematocrit 36.0 % (37-47); Hemoglobin 12.5 g/dL (12.0-15.0); Immature Granulocytes Count 0.040 X10^3/uL (0.0-0.0); Mean Corp Hgb Conc 34.7 g/dL (32-36); Mean Corpuscular Volume 86.1 fL (81-99); Mean Platelet Vol. 8.0 fl (6.2-12.0); NRBC Flagged by Analyzer 0 % (0-5); Platelet Count 341 K/mm3 (150-450); RBC Distribution Width CV 13.2 % (11.6-14.6); RBC Distribution Width SD 40.8 fl (35.1-43.9); Red Blood Count 4.18 M/mm3 (4.2-5.4); White Blood Count 8.4 K/mm3 (4.4-11.0)
[2025-05-24 11:36] LABS: Anion Gap 10 (5-15); BUN 19 mg/dL (4-19); BUN/Creat Ratio 20.3 RATIO (10-20); Calcium,Total 9.8 mg/dL (7.6-11.0); Carbon Dioxide 26.7 mmol/L (21.0-32.0); Chloride 89 mmol/L (98-108); Glucose 105 mg/dL (70-99); Potassium 4.3 mmol/L (3.3-5.1)
== END | disposition home or self-care (01) ==
LOC: RAD 10:27
PROVIDERS: PCP Family Medicine; Referring Provider Physician Assistant Medical; Visit Provider Physician Assistant Medical
DX: R06.09 Other forms of dyspnea (principal); R94.39 Abnormal result of other cardiovascular function study; I44.7 Left bundle-branch block, unspecified
CPT/HCPCS: 36415; 71046; 80048; 85025

== ENCOUNTER 2025-06-07 06:34 | Day surgery (SDC) | payer MEDICARE, OTHER, SELFPAY ==
[2025-06-02 11:29] LABS: Anion Gap 10 (5-15); BUN 14 mg/dL (4-19); BUN/Creat Ratio 15.3 RATIO (10-20); Calcium,Total 9.9 mg/dL (7.6-11.0); Carbon Dioxide 27.7 mmol/L (21.0-32.0); Chloride 94 mmol/L (98-108); Glucose 75 mg/dL (70-99); Potassium 4.5 mmol/L (3.3-5.1)
[2025-06-06 08:33] VITALS: BMI 27.4
--- OUTSIDE RECORDS SUMMARY | 2025-06-07 06:41 | XMS RPT_ITS | CCD ---
Author Organization [facility] Care Team Providers Care Chainstitch Pants Outseamer Name Role Phone MAXWELL CHACON MD Primary Care Physician Maxwell Chacon MD Primary Care Provider [phone] Maxwell Chacon MD Primary Care Provider [phone] Maxwell Chacon MD Primary Care Provider [phone] MAXWELL CHACON MD Attending Unavailable MAXWELL CHACON MD Primary Care Unavailable MAXWELL CHACON MD Attending Unavailable MAXWELL CHACON MD Primary Care Unavailable Maxwell Chacon MD Primary Care Provider RACHAEL SIMMONS Referring Unavailable MAXWELL CHACON Primary Care Unavailable MAXWELL CHACON MD Attending Unavailable MAXWELL CHACON MD Primary Care Unavailable ZACHERY PAPPAS DO Attending Unavailable MAXWELL CHACON MD Primary Care Unavailable MAXWELL CHACON MD Attending Unavailable MAXWELL CHACON MD Primary Care Unavailable Dr. Maxwell Chacon MD Primary Care Provider Dr. Maxwell Chacon MD Attending Provider Dr. Maxwell Chacon MD Referring Provider Dr. Maxwell Chacon MD Other Provider [phone] Dr. Bryce Brooks MD Attending Provider Cristine Rivero Attending Provider Cristine Rivero Referring Provider Maxwell Chacon Primary Care Unavailable Cristine Rivero Attending Unavail able Cristine Rivero Referring Unavail able Maxwell Chacon Primary Care Unavailable Maxwell Chacon Attending Unavailable Maxwell Chacon Referring Unavailable Bryce Brooks Attending Unavailable Bryce Brooks Referring Unavailable Cristine Rivero Consulting Unavail able Maxwell Chacon Primary Care Unavailable Maxwell Chacon Primary Care Unavailable Cristine Rivero Attending Unavail able Maxwell Chacon Referring Unavailable Bryce Brooks Attending Unavailable Maxwell Chacon Primary Care Unavailable Maxwell Chacon Consulting Unavailable Maxwell Chacon Referring Unavailable Unavailable Unavailable Unavailable Allergies Allergy Classification Reported Allergen(s) Allergy Type Date of Onset Reaction(s) Facility (7 sources) Penicillin; Translations: [penicillin] Drug Allergy [facility] (7 sources) Penicillins; Translations: [PENICILLINS] Propensity to adverse reactions 7 [facility] Work Phone: (2 sources) Penicillins Propensity to adverse reactions 7 [facility] Work Phone: (2 sources) Penicillins Allergy to substance [address] [facility] (1 source) Penicillins Drug allergy (disorder) 5 [facility] Repository Medications Current Medications Medication Drug Class(es) Dates Sig (Normalized) Sig (Original) aspirin 81 mg oral tablet (17 sources) Platelet Aggregation Inhibitor, Nonsteroidal Anti-inflammatory Drug Start: 05-24-2025 take 1 tablet by mouth once daily Aspirin 81 mg tablet Active 81 mg PO daily May 24, 2025 12:00am Start: 08-31-2018 aspirin 81 mg oral delayed release tablet Dose : 81 mg = 1 tab(s), Oral, qDay, 0 Refill(s) Start Date: 08/31/18 Status: Ordered Repeat number: 1 Aspirin 81 mg ta b Take 81 mg by mouth. Active Comment on above: Take 81 mg by mouth. atorvastatin 40 mg oral tablet (2 sources) HMG-CoA Reductase Inhibitor Start : 05-24 take 1 tablet by mouth once daily Atorvastatin 40 mg tablet Active 40 mg PO daily May 24, 2025 12:00am calcium carbonate 1500 mg / cholecalciferol 200 unt oral tablet (8 sources) Vitamin D Start : 12-31 CALCIUM + D 600 MG-200 UNIT TAB one tab daily 0 12/31/2006 Active Comment on above: one tab daily chlorhexidine gluconate 1.2 mg/ml mouthwash (2 sources) Start : 05-24 Chlorhexidine Gluconate 0.12 % mouthwash Active MUCOUS MEM May 24, 2025 12:00am diazePAM 2 mg oral tablet (3 sources) Benzodiazepine Start : 05-04 End: 07-03 take 1 tablet by mouth every eight hours as needed for anxiety Diazepam 2 mg tablet Active 2 mg PO EVERY 8 HOURS as needed for anxiety May 24, 2025 12:00am hydroCHLOROthiazide 25 mg oral tablet (14 sources) Thiazide Diuretic Start : 07-18 hydroCHLOROthiazide 25 mg oral tablet Dose : 25 mg = 1 tab(s), Oral, qDay, # 90 tab(s), 3 Refill(s), Pharmacy: [facility]/pharmacy #[id number], 167.7, cm, 10/07/24 13:01:00 EST, Height, kg, 10/07/24 13:01:00 EST, Dosing Weight Start Date: 03/09/25 Status: Ordered Quantity: 90.0 Unit: tab(s) Repeat number: 4 Comment on above: Take 1 tablet by vicky once daily. hydroCHLOROthiazide 12.5 mg / losartan potassium 50 mg oral tablet (3 sources) Thiazide Diuretic, Angiotensin 2 Receptor Viet Start : 05-04 End: 04-29 Losartan-Hydrochlorothia zide 50-12.5 mg tablet Active 1 {tbl} PO daily May 24, 2025 12:00am levothyroxine sodium 0.05 mg oral tablet (17 sources) l-Thyroxine Start : 05-24 take 1 tablet by mouth once daily Levothyroxine 50 mcg tablet Active 50 ug PO daily May 24, 2025 12:00am Start: 03-09-2025 levothyroxine 50 mcg (0.05 mg) oral tablet Dose : 50 mcg = 1 tab(s), Oral, qDay, # 90 tab(s), 3 Refill(s), Pharmacy: [facility]/pharmacy #[id number], 167.7, cm, 10/07/24 13:01:00 EST, Height, kg, 10/07/24 13:01:00 EST, Dosing Weight Start Date: 03/09/25 Status: Ordered Quantity: 90.0 Unit: tab(s) Repeat number: 4 Start: 03-23-2024 levothyroxine 50 mcg (0.05 mg) oral tablet Dose : 50 mcg = 1 tab(s), Oral, qDay, # 90 tab(s), 3 Refill(s), [id number] 168.6, cm, 03/27/23 14:27:00 EDT, Height, kg, 03/27/23 14:27:00 EDT, Dosing Weight Start Date: 03/23/24 Status: Ordered Quantity: 90.0 Unit: tab(s) Repeat number: 4 Start: 03-27-2023 levothyroxine 50 mcg (0.05 mg) oral tablet Dose : 50 mcg = 1 tab(s), Oral, qDay, # 90 tab(s), 3 Refill(s), [id number] 168.6, cm, 03/27/23 14:27:00 EDT, Height, kg, 03/27/23 14:27:00 EDT, Dosing Weight Start Date: 03/27/23 Status: Ordered Start: 12-03-2022 levothyroxine 50 mcg (0.05 mg) oral tablet Dose : 50 mcg = 1 tab(s), Oral, qDay, # 90 tab(s), 0 Refill(s), [id number], 170, cm, 04/24/22 8:29:00 EDT, Height, kg, 04/24/22 8:29:00 EDT, Dosing Weight Start Date: 12/03/22 Status: Ordered Start: 09-04-2021 levothyroxine 50 mcg (0.05 mg) oral tablet Dose : 50 mcg = 1 tab(s), Oral, qDay, # 90 tab(s), 3 Refill(s), Pharmacy: [facility]/pharmacy #[id number], 169.6, cm, 08/29/21 11:56:00 EST, Height, kg, 08/29/21 11:56:00 EST, Dosing Weight Start Date: 09/04/21 Status: Ordered Levothyroxine 25 mcg cap Take 50 mcg by mouth. Active Comment on above: Take 50 mcg by mouth . losartan potassium 50 mg oral tablet (1 source) Angiotensin 2 Receptor Viet Start: take 1 tablet by mouth once daily Losartan 50 mg tablet Active 50 mg PO daily 90 3 May 24, 2025 12:00am 24 hr metoprolol succinate 25 mg extended release oral tablet (2 sources) beta-Adrenergic Viet Start: 5 take 1 tablet by mouth once daily Metoprolol Succinate 25 mg tablet extended release 24 hr Active 25 mg PO daily May 24, 2025 12:00am Multivitamin preparation (7 sources) Start: 8 take 1 tablet by mouth once daily Multivitamin Dose = 1 tab(s), Oral, Daily, 0 Refill(s) Start Date: 08/31/18 Status: Ordered Repeat number: 1 Start: 08-31-2018 take 1 tablet by vicky th once daily Multivitamin Dose = 1 tab(s), Oral, Daily, 0 Refill(s) Start Date: 08/31/18 Status: Ordered Multivitamin tablet (2 sources) Start: 05-24-2025 Multivitamin t ablet Active 1 {tbl} PO EVERY MORNING May 24, 2025 12:00am THERAPEUTIC MULTIVITAMIN TAB (8 sources) Start: 12-31-2006 [...] (1 source) Generalized anxiety disorder 05-04-2025 Chronic Conduction disorders (5 sources) Left bundle branch block; Translations: [Left bundle-branch block, unspecified] Onset: 05-24-2025 05-24-2025 Chronic Disorders of lipid metabolism (19 sources) Mixed hyperlipidemia; Translations: [Mixed hyperlipidemia] Onset: [...] cough 04-12-2025 Episodic Other lower respiratory disease (3 sources) Dyspnea on exertion; Translations: [Other forms of dyspnea] 04-12-2025 Episodic Other lower respiratory disease (2 sources) Other forms of dyspnea; Translations: [Other forms of dyspnea] Onset: 05-30-2025 Episodic Other lower respiratory disease (1 source) Shortness of breath; Translations: [Shortness of breath] Onset: 05-24-2025 Episodic Other screening for suspected conditions (not mental disorders or infectious disease) (11 sources) Patient encounter status; Translations: [Encounter for [...] Test Name Value Interpretation Reference Range Facility Basic Metabolic Profile (BMP )on 06-02-2025 BUN/CRE 15.3 RATIO Normal 08-01 [facility] Comment on above: Performed By: #### L 500.2500 #### [facility] [address] [place], [place], [address] Calcium [Mass/Vol] 9.9 mg/dL Normal 7.6-11.0 [facility] Comment on above: Performed By: #### L 500.2500 #### [facility] [address] [place], [address] Chloride [Moles/Vol] 94 mmol/L Low 98-108 [facility] Comment on above: Performed By: #### L 500.2500 #### [facility] [address] [place], [address] CO2 [Moles/Vol] 27.7 mmol/L Normal 21.0-32.0 [facility] Comment on above: Performed By: #### L 500.2500 #### [facility] [address] [place], [address] Creatinine [Mass/Vol] 0.90 mg/dL Normal 0.70-1.20 [facility] Comment on above: Performed By: #### L 500.2500 #### [facility] [address] [place], [address] GAP 10 Normal 5-15 [facility] Comment on above: Performed By: #### L 500.2500 #### [facility] [address] [place], [address] GFR/1.73 sq M.predicted among non-blacks MDRD (S/P/Bld) [Vol rate/Area] 65 mL/min/{1.73_m2} Normal >60 [facility] Comment on above: Result Comment: mL/m in/1.73m2 CKD-EPI Creatinine Equation (2020) Performed By: #### L 500.2500 #### [facility] [address] [place], [address] Glucose [Mass/Vol] 75 mg/dL Normal 70-99 [facility] Comment on above: Performed By: #### L 500.2500 #### [facility] [address] [place], [address] Potassium [Moles/Vol] 4.5 mmol/L Normal 3.3-5.1 [facility] Comment on above: Performed By: #### L 500.2500 #### [facility] [address] [place], [address] Sodium [Moles/Vol] 131 mmol/L Low 133-145 [facility] Comment on above: Performed By: #### L 500.2500 #### [facility] [address] [place], [address] Urea nitrogen [Mass/Vol] 14 mg/dL Normal 4-19 [facility] Comment on above: Performed By: #### L 500.2500 #### [facility] [address] [place], [address] Absolute lymphocyte countOrd ered By: Cristine Kelly on 05-24-2025 Lymphocytes Auto (Unsp spec) [#/Vol] 2.46 10*3/uL 0.83-4.51 [facility] Absolute neutrophil countOrd ered By: Cristine Kelly on 05-24-2025 Neutrophils (Bld) [#/Vol] 4.9 10*3/uL 2.0-7.7 [facility] Anion gap in Serum or Plasma Ordered By: Cristine Kelly on 05-24-2025 Anion gap [Moles/Vol] 10 mmol/L 5-15 [facility] Automated lymphocyte count a s percentage of total leukocytesOrdered By: Cristine Kelly on 05-24-2025 Lymphocytes/100 WBC Auto (Unsp spec) 29.4 % 19-41 [facility] BUN/creatinine ratioOrdered By: Cristine Kelly on 05-24-2025 Urea nitrogen/Creatinine [Mass ratio] 20.3 mg/mg High 10- [facility] Basic Metabolic Profile (BMP )on 05-24-2025 BUN/CRE 20.3 RATIO High - [facility] Comment on above: Performed By: #### L 500.2500, L100.0100 #### [facility] [address] [place], [address] Calcium [Mass/Vol] 9.8 mg/dL Normal 7.6-11.0 [facility] Comment on above: Performed By: #### L 500.2500, L100.0100 #### [facility] [address] [place], [address] Chloride [Moles/Vol] 89 mmol/L Low 98-108 [facility] Comment on above: Performed By: #### L 500.2500, L100.0100 #### [facility] [address] [place], [address] CO2 [Moles/Vol] 26.7 mmol/L Normal 21.0-32.0 [facility] Comment on above: Performed By: #### L 500.2500, L100.0100 #### [facility] [address] [place], [address] Creatinine [Mass/Vol] 0.93 mg/dL Normal 0.70-1.20 [facility] Comment on above: Performed By: #### L 500.2500, L100.0100 #### [facility] [address] [place], [address] GAP 10 Normal 5-15 [facility] Comment on above: Performed By: #### L 500.2500, L100.0100 #### [facility] [address] [place], [address] GFR/1.73 sq M.predicted among non-blacks MDRD (S/P/Bld) [Vol rate/Area] 62 mL/min/{1.73_m2} Normal >60 [facility] Comment on above: Result Comment: mL/m in/1.73m2 CKD-EPI Creatinine Equation (2020) Performed By: #### L 500.2500, L100.0100 #### [facility] [address] [place], [address] Glucose [Mass/Vol] 105 mg/dL High 70-99 [facility] Comment on above: Performed By: #### L 500.2500, L100.0100 #### [facility] [address] [place], [address] Potassium [Moles/Vol] 4.3 mmol/L Normal 3.3-5.1 [facility] Comment on above: Performed By: #### L 500.2500, L100.0100 #### [facility] [address] [place], [address] Sodium [Moles/Vol] 126 mmol/L Low 133-145 [facility] Comment on above: Performed By: #### L 500.2500, L100.0100 #### [facility] [address] [place], [address] Urea nitrogen [Mass/Vol] 19 mg/dL Normal 4-19 [facility] Comment on above: Performed By: #### L 500.2500, L100.0100 #### [facility] [address] [place], [address] Basophil percentageOrdered B y: Cristine Kelly on 05-24-2025 Basophils/100 WBC (Bld) 0.8 % 0-1 [facility] CBC W/Diff, Automatedon 05-13 Absolute Lymph 2.46 X10 3/uL Normal 0.83-4.51 [facility] Comment on above: Performed By: #### L 500.2500, L100.0100 #### [facility] [address] [place], [address] Absolute Neut 4.9 X10 3/uL Normal 2.0-7.7 [facility] Comment on above: Performed By: #### L 500.2500, L100.0100 #### [facility] [address] [place], [address] Basophils/100 WBC (Bld) 0.8 % Normal 0-1 [facility] Comment on above: Performed By: #### L 500.2500, L100.0100 #### [facility] [address] [place], [address] Eosinophils/100 WBC (Bld) 2.9 % Normal 0-5 [facility] Comment on above: Performed By: #### L 500.2500, L100.0100 #### [facility] [address] [place], [address] Erythrocyte distribution width (RBC) [Ratio] 13.2 % Normal 11.6-14.6 [facility] Comment on above: Performed By: #### L 500.2500, L100.0100 #### [facility] [address] [place], [address] Hematocrit (Bld) [Volume fraction] 36.0 % Low 37-47 [facility] Comment on above: Performed By: #### L 500.2500, L100.0100 #### [facility] [address] [place], [address] Hemoglobin (Bld) [Mass/Vol] 12.5 g/dL Normal 12.0-15.0 [facility] Comment on above: Performed By: #### L 500.2500, L100.0100 #### [facility] [address] [place], [address] IG% 0.500 Normal 0.0-0.9 [facility] Comment on above: Result Comment: IG% - Immature Granulocytes (promyelocytes, myelocytes and metamyelocytes) > 1% indicates that a LEFT SHIFT is Present. Performed By: #### L 500.2500, L100.0100 #### [facility] [address] [place], [address] Lymphocytes/100 WBC (Bld) 29.4 % Normal 19-41 [facility] Comment on above: Performed By: #### L 500.2500, L100.0100 #### [facility] [address] [place], [address] MCH (RBC) [Entitic mass] 29.9 pg Normal 27.0-32.0 [facility] Comment on above: Performed By: #### L 500.2500, L100.0100 #### [facility] [address] [place], [address] MCHC (RBC) [Mass/Vol] 34.7 g/dL Normal 32-36 [facility] Comment on above: Performed By: #### L 500.2500, L100.0100 #### [facility] [address] [place], [address] MCV (RBC) [Entitic vol] 86.1 fL Normal 81-99 [facility] Comment on above: Performed By: #### L 500.2500, L100.0100 #### [facility] [address] [place], [address] Monocytes/100 WBC (Bld) 8.6 % Normal 0-10 [facility] Comment on above: Performed By: #### L 500.2500, L100.0100 #### [facility] [address] [place], [address] Neutrophils/100 WBC (Bld) 57.8 % Normal 47-70 [facility] Comment on above: Performed By: #### L 500.2500, L100.0100 #### [facility] [address] [place], [address] Nucleated RBC (Bld) [#/Vol] 0 10*3/uL Normal 0-5 [facility] Comment on above: Performed By: #### L 500.2500, L100.0100 #### [facility] [address] [place], [address] Platelet mean volume (Bld) [Entitic vol] 8.0 fL Normal 6.2-12.0 [facility] Comment on above: Performed By: #### L 500.2500, L100.0100 #### [facility] [address] [place], [address] Platelets (Bld) [#/Vol] 341 10*3/uL Normal 150-450 [facility] Comment on above: Performed By: #### L 500.2500, L100.0100 #### [facility] [address] [place], [address] RBC (Bld) [#/Vol] 4.18 10*6/uL Low 4.2-5.[address] [facility] Comment on above: Performed By: #### L 500.2500, L100.0100 #### [facility] [address] [place], [address] RDW SD 40.8 fl Normal 35.1-43.9 [facility] Comment on above: Performed By: #### L 500.2500, L100.0100 #### [facility] [address] [place], [address] WBC (Bld) [#/Vol] 8.4 10*3/uL Normal 4.4-11.0 [facility] Comment on above: Performed By: #### L 500.2500, L100.0100 #### [facility] [address] [place], [address] Carbon dioxide, total [Moles /volume] in Central venous bloodOrdered By: Cristine Kelly on 05-24-2025 CO2 [Moles/Vol] 26.7 mmol/L 21.0-32.0 [facility] Cardiology Visit Reporton Cardiology Visit Report [facility] [address] [place] [address] OFFICE VISIT Date of Service: 05/24/25 MR#: [id number] Acct: [id number] Name: MIGUELINAKELVIN MORIN Rep #: [id number] : 1945 Provider: CHIRAG Luo Age/Sex: 79/F Location: [facility] Status: Signed HPI HPI History of Present Illness Details: Kelvin Mcintyre is an 79-year-old female that presents here today to establish care for an abnormal stress test. She does have a history of hypertension. She had noted shortness of breath with her primary care doctor he had obtained a stress test. This was done in May 2025. This demonstrated exercise myocardial perfusion stress with probable mild anteroseptal ischemia. Rate dependent bundle branch block noted. Mildly reduced left ventricular ejection fraction. Lipid profile from PCP demonstrated total cholesterol 242, HDL 81, LDL 41. This was from March 2025. Pt notes that gradually she has had an increase in SOB with walking. This past march she noticed it more so when she was visiting her grandson in [place] and could not walk there without being SOB. She did have chest heaviness with walking. She has not had any palpitations. She does sometimes have dizziness. BP has not been controlled. She does not take this at home. PCP recently increased her BP medications. Intake Vital Signs 05/24/25 09:39 Height 5 ft 6 in Weight: 170 lb BMI 27.4 BP 146/88 H Blood Pressure Location Lt brachial Position Sitting Respiration 16 Pulse 69 Pulse Source NIBP Intake Visit Reasons: ABN STRESS (HALKO) Community Leader Required: No Is patient in pain?: No Allergies Penicillins Allergy (Intermediate, Verified 05/24/25 09:30) Hives Medications ???Medication ???Instructions ???Recorded ???Confirmed ???Type aspirin 81 mg tablet 81 mg PO QDAY 05/24/25 05/24/25 Hi story atorvastatin 40 mg tablet 40 mg PO QDAY 05/24/25 05/24/25 Hi story chlorhexidine gluconate 0.12 % mucous membrane 05/24/25 05/24/25 History mouthwash diazepam 2 mg tablet 2 mg PO Q8 PRN anxiety 05/24/25 History levothyroxine 50 mcg tablet 50 mcg PO QDAY 05/24/25 05/24/25 H istory losartan 50 mg tablet 50 mg PO QDAY #90 tabs 05/24/25 Rx losartan 50 mg-hydrochlorothiazide 1 tab PO QDAY 05/24/25 05/24/25 History 12.5 mg tablet metoprolol succinate 25 mg 25 mg PO QDAY 05/24/25 05/24/25 Hi story tablet,extended release 24 hr multivitamin 1 tab PO QAM 05/24/25 05/24/25 His tory Have you fallen in the past year?: No PFSH Medical History (Updated 05/24/25 @ 10:14 by Cristine Kelly PA, PA) LBBB (left bundle branch block) Essential hypertension Hyperlipidemia Hypothyroidism Surgical History (Updated 05/24/25 @ 09:36 by Silvia Elizabeth) H/O tubal ligation History of dilatation and curettage History of tonsillectomy History of appendectomy Family History (Updated 05/24/25 @ 09:37 by Silvia Elizabeth) Father CVA (cerebral vascular accident) Mother CVA (cerebral vascular accident) Sister Myocardial infarction Brother CVA (cerebral vascular accident) Brother Congenital heart disease Social History (Updated 05/24/25 @ 09:37 by Silvia Elizabeth) Smoking Status: Never smoker alcohol intake: never substance use type: does not use caffeine: Yes Type: coffee Number of servings: 1 ROS Const Const: Positive for fatigue; Negative for weakness Eyes Eyes: Negative for change in vision ENT ENT: Positive for balance problems (Episodes of feeling weird, off balance and scared.); Negative for dizziness Cardio Chest Pain: No Palpitations: No Edema: None Resp Respiratory: Positive for SOB with activity; Negative for SOB at rest or SOB orthopnea SOB lying down GI GI: Negative nausea or heartburn Musc Musc: Positive for balance problems (Episodes of feeling weird, off balance and scared.) Neuro Neuro: Positive for lightheadedness and vertigo; Negative for dizziness, near syncope, syncope or weakness Endo Endo: Positive for fatigue Psych Psych: Positive for anxiety Cardiology Exam Const Appearance: cooperative, no acute distress and well developed Orientation: alert, awake and oriented x3 Head Head: normocephalic and atraumatic Mouth: moist mucous membranes Eyes General: appearance normal, both eyes and all related structures Conjunctivae: conjunctivae normal Pupils: PERRL EOM: EOM intact bilaterally Neck Neck: normal visual inspection, no lymphadenopathy and no JVD Carotids: Negative bruit Neck Mass: Negative Neck mass Chest Chest inspection: normal inspection of the chest and symmetric chest movement Auscultation: Bilateral: Clear to Auscultation Cardio Palpation: normal PMI Rate: regular rate Rhythm: regular rhythm Heart sounds: S1 normal an (more content not included)... Normal [facility] Chest PA and Lateralon 05-24 Chest PA and Lateral [facility] Imaging Services [address] [place] [address] Chest PA and Lateral MR#: [id number] Acct: [id number] Name: KELVIN MCINTYRE Rep #: [id number] : 1945 F 79 From: Cristian Ríos MD PCP: Dr. Maxwell Chacon MD Status: REG CLI Study: Chest PA and Lateral Date of Exam: 05/24/25 Exam# [id number] Ordering Dr: Cristine Kelly PROCEDURE: CHEST PA AND LATERAL 05/24/2025 REASON FOR EXAM: DHILLON TECHNIQUE: CHEST PA AND LATERAL FINDINGS: The heart is normal in size. The lungs are clear. No acute osseous abnormalities. RAD/Chest PA and Lateral IMPRESSION: NO ACUTE FINDINGS. Reading Location: [id number] CC: Dr. Maxwell Chacon MD; CHIRAG Arora Youth Support Worker: Signed Normal [facility] Chloride assayOrdered By: Linda Kelly on 05-24-2025 Chloride [Moles/Vol] 89 mmol/L Low 98-108 [facility] Eosinophil percentageOrdered By: Cristine Kelly on 05-24-2025 Eosinophils/100 WBC (Bld) 2.9 % 0-5 [facility] Erythrocyte distribution wid th ratioOrdered By: Cristine Kelly on 05-24-2025 Erythrocyte distribution width (RBC) [Ratio] 13.2 % 11.6-14.6 [facility] Erythrocyte distribution wid th standard deviationOrdered By: Cristine Kelly on 05-24-2025 Erythrocyte distribution width (RBC) [Ratio] 40.8 fl 35.1-43.9 [facility] Glomerular filtration rate ( GFR) estimation/1.73 sq m using serum, plasma, or whole bOrdered By: Cristine Kelly on 05-24-2025 GFR/1.73 sq M.predicted among non-blacks MDRD (S/P/Bld) [Vol rate/Area] 62 mL/min/{1.73_m2} >60 [facility] Comment on above: mL/min/1.73m2 CKD-EP I Creatinine Equation (2020) Hematocrit Auto (Bld) [Volum e fraction]Ordered By: Cristine Kelly on 05-24-2025 Hematocrit (Bld) [Volume fraction] 36.0 % Low 37-47 [facility] Hemoglobin measurementOrdere d By: Cristine Kelly on 05-24-2025 Hemoglobin (Bld) [Mass/Vol] 12.5 g/dL 12.0-15.0 [facility] Immature granulocytes/100 WB C Auto (Bld)Ordered By: Cristine Kelly on 05-24-2025 Immature granulocytes/100 WBC (Bld) 0.500 % 0.0-0.9 [facility] Comment on above: IG% - Immature Granu locytes (promyelocytes, myelocytes and metamyelocytes) > 1% indicates that a LEFT SHIFT is Present. MCV (mean corpuscular volume ) determinationOrdered By: Cristine Kelly on 05-24-2025 MCV (RBC) [Entitic vol] 86.1 fL 81-99 [facility] Mean corpuscular hemoglobin (MCH) determinationOrdered By: Cristine Kelly on 05-24-2025 MCH (RBC) [Entitic mass] 29.9 pg 27.0-32.0 [facility] Mean corpuscular hemoglobin concentration (MCHC) determinationOrdered By: Cristine Kelly on 05-24-2025 MCHC (RBC) [Mass/Vol] 34.7 g/dL 32-36 [facility] Mean platelet volume determi nationOrdered By: Cristine Kelly on 05-24-2025 Platelet mean volume (Bld) [Entitic vol] 8.0 fL 6.2-12.0 [facility] Monocyte percentageOrdered B y: Cristine Kelly on 05-24-2025 Monocytes/100 WBC (Bld) 8.6 % 0-10 [facility] Neutrophil percentageOrdered By: Cristine Kelly on 05-24-2025 Neutrophils/100 WBC (Bld) 57.8 % 47-70 [facility] Nucleated red blood cell per centageOrdered By: Cristine Kelly on 05-24-2025 Nucleated RBC/100 WBC (Bld) [Ratio] 0 % 0-5 [facility] Platelet countOrdered By: Linda Kelly on 05-24-2025 Platelets (Bld) [#/Vol] 341 10*3/uL 150-450 [facility] Potassium measurement (mass/ volume)Ordered By: Cristine Kelly on 05-24-2025 Potassium (Unsp spec) [Mass/Vol] 4.3 mmol/L 3.3-5.1 [facility] RBC Auto (Bld) [#/Vol]Ordere d By: Cristine Kelly on 05-24-2025 RBC (Bld) [#/Vol] 4.18 10*6/uL Low 4.2-5.[address] [facility] Serum creatinine measurement (mass/volume)Ordered By: Cristine Kelly on 05-24-2025 Creatinine [Mass/Vol] 0.93 mg/dL 0.70-1.20 [facility] Serum glucose measurement (m ass/volume)Ordered By: Cristine Kelly on 05-24-2025 Glucose [Mass/Vol] 105 mg/dL High 70-99 [facility] Serum or plasma calcium sid urement (mass/volume)Ordered By: Cristine Kelly on 05-24-2025 Calcium [Mass/Vol] 9.8 mg/dL 7.6-11.0 [facility] Serum or plasma urea nitroge n measurement (mass/volume)Ordered By: Cristine Kelly on 05-24-2025 Urea nitrogen [Mass/Vol] 19 mg/dL 4-19 [facility] Sodium levelOrdered By: Bob Kelly on 05-24-2025 Sodium [Moles/Vol] 126 mmol/L Low 133-145 [facility] White blood cell (WBC) count Ordered By: rCistine Kelly on 05-24-2025 WBC (Bld) [#/Vol] 8.4 10*3/uL 4.4-11.0 [facility] Cardiovascular stress test r eportOrdered By: Bryce Brooks on 05-13-2025 Study report [facility] [address] [place] [address] MR#: [id number] Acct: [id number] Name: KELVIN MCINTYRE Rep #: [id number] : 1945 79 From: Bryce Brooks MD Primary Care: Dr. Maxwell Chacon MD Statu s: REG CLI Referring Dr: Maxwell Chacon MD Sex: F C Stress Test Report Exercise myocardial perfusion stress test. 79-year-old lady with a history of chest pain Stress protocol: Resting EKG demonstrates normal sinus rhythm with a rate of 61 bpm resting bloodpressure is 162/78 mmHg. The patient exercised according to the regular [place] protocol for a total duration of 3 minutes and 15 seconds attaining a maximum heart rate of 157 bpm which was 112% of maximum predicted heart rate; the maximum workload was 5.2 metabolic equivalents. At rest there were no ST or T wave changes noted to suggest ischemia and at peak exercise upsloping ST changesonly were noted which did not meet the criteria for ischemia. The patient did develop a left bundle branch block which was rate dependent with exercise. No clinical angina was noted the test was terminated due to the target heart rate being achieved/fatigue. The peak blood pressure was 190/88 mmHg. Rate-pressureproduct was 25,000. Myocardial perfusion protocol. 11.3 mCi of technetium 99m sestamibi was injected at rest. The patient exercised according to regular [place] protocol for total duration of 3 minutes and 15 seconds and at peak exercise 33.5 mCi of technetium 99m sestamibi was injected stress images were obtained stress and rest images were reconstructed in comparing the short axis vertical long and horizontal long axis. Gated images were also obtained. Perfusion SPECT analysis: Review of the stress images demonstrate normal uptake of tracer noted in all areas of the myocardium. There is an area of anteroseptal perfusion defect which is present at rest and also with stress. A small amount of anteroseptal ischemia cannot be completely excluded. Gated SPECT analysis: The gated ejection fraction is 43%. Conclusion: Exercise myocardial perfusion stress test with probable mild anteroseptal ischemia. Rate dependent bundle branch block noted. Mildly reduced left ventricular ejection fraction. 05/13/251758 Date _ Bryce Brooks MD CC: Dr. Maxwell Chacon MD ~ Date Dictated: 05/13/251755 Date Transcribed: 05/13/251755 Youth Support Worker: [place] Signed [facility] Work Phone: Stress Reporton 05-13-2025 Stress Report [facility] [address] [place] [address] MR#: [id number] Acct: [id number] Name: KELVIN MCINTYRE Rep #: [id number] : 1945 79 From: Bryce Brooks MD Primary Care: Dr. Maxwell Chacon MD Status: REG CLI Referring Dr: Maxwell Chacon MD Sex: F C Stress Test Report Exercise myocardial perfusion stress test. 79-year-old lady with a history of chest pain Stress protocol: Resting EKG demonstrates normal sinus rhythm with a rate of 61 bpm resting blood pressure is 162/78 mmHg. The patient exercised according to the regular [place] protocol for a total duration of 3 minutes and 15 seconds attaining a maximum heart rate of 157 bpm which was 112% of maximum predicted heart rate; the maximum workload was 5.2 metabolic equivalents. At rest there were no ST or T wave changes noted to suggest ischemia and at peak exercise upsloping ST changes only were noted which did not meet the criteria for ischemia. The patient did develop a left bundle branch block which was rate dependent with exercise. No clinical angina was noted the test was terminated due to the target heart rate being achieved/fatigue. The peak blood pressure was 190/88 mmHg. Rate-pressure product was 25,000. Myocardial perfusion protocol. 11.3 mCi of technetium 99m sestamibi was injected at rest. The patient exercised according to regular [place] protocol for total duration of 3 minutes and 15 seconds and at peak exercise 33.5 mCi of technetium 99m sestamibi was injected stress images were obtained stress and rest images were reconstructed in comparing the short axis vertical long and horizontal long axis. Gated images were also obtained. Perfusion SPECT analysis: Review of the stress images demonstrate normal uptake of tracer noted in all areas of the myocardium. There is an area of anteroseptal perfusion defect which is present at rest and also with stress. A small amount of anteroseptal ischemia cannot be completely excluded. Gated SPECT analysis: The gated ejection fraction is 43%. Conclusion: Exercise myocardial perfusion stress test with probable mild anteroseptal ischemia. Rate dependent bundle branch block noted. Mildly reduced left ventricular ejection fraction. 05/13/251758 Date Bryce Brooks MD CC: Dr. Maxwell Chacon MD Date Dictated: 05/13/251755 Date Transcribed: 05/13/251755 Youth Support Worker: [place] Signed Normal [facility] LABORATORYOrdered By: Johnny Kilgore on 05-04-2025 Albumin DL <= 20 mg/L (U) [Mass/Vol] 2.6 mg/L Invalid Interpretation Code AO ADM SS Albumin/Creatinine DL <= 20 mg/L (U) [Mass ratio] 6 mg/G Normal 0 - 30 mg/G AO Chemistry S Creatinine (U) [Mass/Vol] 42.9 mg/dL Invalid Interpretation Code AO ADM SS [facility] 05-04-2025 U Creatinine 42.9 mg/dL Normal [facility] Comment on above: Performed By: #### M ALBR #### [address] [address] U Microalb 2.6 mg/L Normal [facility] Comment on above: Performed By: #### M ALBR #### [address] [address] U Ratio Alb/Cre 6 mg/G Normal 0-30 [facility] Comment on above: Performed By: #### M ALBR #### [address] [address] .Auto Diffon 04-07-2025 Basophil, Absolute 0.1 10 3/mcL Normal 0.0-0.3 [facility] Comment on above: Performed By: #### F T4, CMP, GFR, LIPID, CBC, ADIFF, ANEU, FT3, VIDH, TSH #### [address] [address] Basophils/100 WBC (Bld) 1.4 % Normal 0.0-2.5 [facility] Comment on above: Performed By: #### F T4, CMP, GFR, LIPID, CBC, ADIFF, ANEU, FT3, VIDH, TSH #### [address] [address] Eosinophil, Absolute 0.5 10 3/mcL Normal 0.0-0.7 [facility] Comment on above: Performed By: #### F T4, CMP, GFR, LIPID, CBC, ADIFF, ANEU, FT3, VIDH, TSH #### [address] [address] Eosinophils/100 WBC (Bld) 6.5 % High 0.0-6.0 [facility] Comment on above: Performed By: #### F T4, CMP, GFR, LIPID, CBC, ADIFF, ANEU, FT3, VIDH, TSH #### [address] [address] Lymphocyte, Absolute 2.9 10 3/mcL Normal 0.9-4.3 [facility] Comment on above: Performed By: #### F T4, CMP, GFR, LIPID, CBC, ADIFF, ANEU, FT3, VIDH, TSH #### [address] [address] Lymphocytes/100 WBC (Bld) 38.7 % Normal 20.0-40.0 [facility] Comment on above: Performed By: #### F T4, CMP, GFR, LIPID, CBC, ADIFF, ANEU, FT3, VIDH, TSH #### [address] [address] Monocyte, Absolute 0.7 10 3/mcL Normal 0.1-1.4 [facility] Comment on above: Performed By: #### F T4, CMP, GFR, LIPID, CBC, ADIFF, ANEU, FT3, VIDH, TSH #### [address] [address] Monocytes/100 WBC (Bld) 8.8 % Normal 2.0-13.0 [facility] Comment on above: Performed By: #### F T4, CMP, GFR, LIPID, CBC, ADIFF, ANEU, FT3, VIDH, TSH #### [address] [address] Neutrophils/100 WBC (Bld) 44.6 % Low 50.0-75.0 [facility] Comment on above: Performed By: #### F T4, CMP, GFR, LIPID, CBC, ADIFF, ANEU, FT3, VIDH, TSH #### [address] [address] .GFRon 04-07-2025 Estimated Glomerular Filtration Rate 72 ml/min/1.73sqm Normal [facility] Comment on above: Result Comment: Stages of [...] results. Performed By: #### C VFLURV #### [address] [address] .NEUABSon 04-07-2025 Neutrophil, Absolute 3.3 10 3/mcL Normal 2.3-8.1 [facility] Comment on above: Performed By: #### F T4, CMP, GFR, LIPID, CBC, ADIFF, ANEU, FT3, VIDH, TSH #### [id number] [place], [place] [address] CBCon 04-07-2025 Erythrocyte distribution width (RBC) [Ratio] 13.7 % Normal 11.5-15.5 [facility] Comment on above: Performed By: #### F T4, CMP, GFR, LIPID, CBC, ADIFF, ANEU, FT3, VIDH, TSH #### [address] [address] Hematocrit (Bld) [Volume fraction] 36.7 % Normal 34.0-46.0 [facility] Comment on above: Performed By: #### F T4, CMP, GFR, LIPID, CBC, ADIFF, ANEU, FT3, VIDH, TSH #### [address] [address] Hgb 12.5 G/dL Normal 12.0-16.0 [facility] Comment on above: Performed By: #### F T4, CMP, GFR, LIPID, CBC, ADIFF, ANEU, FT3, VIDH, TSH #### [place] [address] MCH (RBC) [Entitic mass] 29.9 pg Normal 27.0-33.0 [facility] Comment on above: Performed By: #### F T4, CMP, GFR, LIPID, CBC, ADIFF, ANEU, FT3, VIDH, TSH #### [address] [address] MCHC 34.2 G/dL Normal 32.0-36.0 [facility] Comment on above: Performed By: #### F T4, CMP, GFR, LIPID, CBC, ADIFF, ANEU, FT3, VIDH, TSH #### [address] [address] MCV (RBC) [Entitic vol] 87.5 fL Normal 80.0-99.0 [facility] Comment on above: Performed By: #### F T4, CMP, GFR, LIPID, CBC, ADIFF, ANEU, FT3, VIDH, TSH #### [address] [address] Platelet 349 10 3/mcL Normal 150-450 [facility] Comment on above: Performed By: #### F T4, CMP, GFR, LIPID, CBC, ADIFF, ANEU, FT3, VIDH, TSH #### [address] [address] Platelet mean volume (Bld) [Entitic vol] 6.7 fL Normal 6.6-10.5 [facility] Comment on above: Performed By: #### F T4, CMP, GFR, LIPID, CBC, ADIFF, ANEU, FT3, VIDH, TSH #### [place] [address] RBC 4.19 10 6/mcL Normal 4.10-5.30 [facility] Comment on above: Performed By: #### F T4, CMP, GFR, LIPID, CBC, ADIFF, ANEU, FT3, VIDH, TSH #### [place] [id number] WBC 7.4 10 3/mcL Normal 4.5-10.8 [facility] Comment on above: Performed By: #### F T4, CMP, GFR, LIPID, CBC, ADIFF, ANEU, FT3, VIDH, TSH #### [address] [address] CMPon 04-07-2025 Albumin Level 3.9 G/dL Normal 3.4-4.8 [facility] Comment on above: Performed By: #### F T4, CMP, GFR, LIPID, CBC, ADIFF, ANEU, FT3, VIDH, TSH #### [place] [id number] Albumin/Globulin [Mass ratio] 1.0 {ratio} Low 1.1-2.5 [facility] Comment on above: Performed By: #### F T4, CMP, GFR, LIPID, CBC, ADIFF, ANEU, FT3, VIDH, TSH #### [address] [address] ALP [Catalytic activity/Vol] 84 U/L Normal 40-135 [facility] Comment on above: Performed By: #### F T4, CMP, GFR, LIPID, CBC, ADIFF, ANEU, FT3, VIDH, TSH #### [address] [address] ALT [Catalytic activity/Vol] 21 U/L Normal 14-59 [facility] Comment on above: Performed By: #### F T4, CMP, GFR, LIPID, CBC, ADIFF, ANEU, FT3, VIDH, TSH #### [address] [address] AST [Catalytic activity/Vol] 19 U/L Normal 10-40 [facility] Comment on above: Performed By: #### F T4, CMP, GFR, LIPID, CBC, ADIFF, ANEU, FT3, VIDH, TSH #### [address] [address] Bili Total 0.5 mg/dL Normal 0.2-1.0 [facility] Comment on above: Result Comment: Use of this assay is not recommended for patients undergoing treatment with eltrombopag due to the potential for falsely elevated results. Performed By: #### F T4, CMP, GFR, LIPID, CBC, ADIFF, ANEU, FT3, VIDH, TSH #### [address] [address] BUN/Creatinine Ratio 17 ratio Normal 7-27 [facility] Comment on above: Performed By: #### F T4, CMP, GFR, LIPID, CBC, ADIFF, ANEU, FT3, VIDH, TSH #### [address] [address] Calcium [Mass/Vol] 10.0 mg/dL Normal 8.4-10.2 [facility] Comment on above: Performed By: #### F T4, CMP, GFR, LIPID, CBC, ADIFF, ANEU, FT3, VIDH, TSH #### [address] [address] Chloride [Moles/Vol] 100 mmol/L Normal 98-107 [facility] Comment on above: Performed By: #### F T4, CMP, GFR, LIPID, CBC, ADIFF, ANEU, FT3, VIDH, TSH #### [address] [address] CO2 [Moles/Vol] 35 mmol/L High 23-31 [facility] Comment on above: Performed By: #### F T4, CMP, GFR, LIPID, CBC, ADIFF, ANEU, FT3, VIDH, TSH #### [address] [address] Creatinine [Mass/Vol] 0.82 mg/dL Normal 0.51-0.95 [facility] Comment on above: Performed By: #### F T4, CMP, GFR, LIPID, CBC, ADIFF, ANEU, FT3, VIDH, TSH #### [place] [id number] Electrolyte Balance 2.0 mEq/L Low 4.0-15.0 [facility] Comment on above: Performed By: #### F T4, CMP, GFR, LIPID, CBC, ADIFF, ANEU, FT3, VIDH, TSH #### [address] [address] Globulin 4.1 G/dL Normal 2.7-4.4 [facility] Comment on above: Performed By: #### F T4, CMP, GFR, LIPID, CBC, ADIFF, ANEU, FT3, VIDH, TSH #### [address] [address] Glucose [Mass/Vol] 96 mg/dL Normal 83-110 [facility] Comment on above: Performed By: #### F T4, CMP, GFR, LIPID, CBC, ADIFF, ANEU, FT3, VIDH, TSH #### [address] [address] Potassium [Moles/Vol] 4.5 mmol/L Normal 3.5-5.1 [facility] Comment on above: Performed By: #### F T4, CMP, GFR, LIPID, CBC, ADIFF, ANEU, FT3, VIDH, TSH #### [address] [address] Sodium [Moles/Vol] 137 mmol/L Normal 136-145 [facility] Comment on above: Performed By: #### F T4, CMP, GFR, LIPID, CBC, ADIFF, ANEU, FT3, VIDH, TSH #### [address] [address] Total Protein 8.0 G/dL Normal 6.4-8.2 [facility] Comment on above: Performed By: #### F T4, CMP, GFR, LIPID, CBC, ADIFF, ANEU, FT3, VIDH, TSH #### [address] [address] Urea nitrogen [Mass/Vol] 14 mg/dL Normal 7-18 [facility] Comment on above: Performed By: #### F T4, CMP, GFR, LIPID, CBC, ADIFF, ANEU, FT3, VIDH, TSH #### [address] [address] FT3on 04-07-2025 Free T3 [Mass/Vol] 2.49 pg/mL Normal 2.30-4.00 [facility] Comment on above: Performed By: #### F T4, CMP, GFR, LIPID, CBC, ADIFF, ANEU, FT3, VIDH, TSH #### [address] [address] FT4on 04-07-2025 Free T4 [Mass/Vol] 0.97 ng/dL Normal 0.76-1.46 [facility] Comment on above: Performed By: #### F T4, CMP, GFR, LIPID, CBC, ADIFF, ANEU, FT3, VIDH, TSH #### [address] [address] LABORATORYOrdered By: SYSTEM SYSTEM on 04-07-2025 25-hydroxyvitamin [...] Cholesterol [Mass/Vol] 242 mg/dL High 0 - 2 00 mg/dL AO ADM SS Comment on above: [...] 04-07-2025 Cholesterol [Mass/Vol] 242 mg/dL High 0-200 [facility] Comment on above: Result Comment: Chol esterol Reference Interval: Less than 200 Desirable 200-239 Borderline high risk 240 and above High risk Performed By: #### C VFLURV #### [address] [address] Cholesterol in HDL [Mass/Vol] 81 mg/dL High 40-60 [facility] Comment on above: Performed By: #### C VFLURV #### [address] [address] Cholesterol in LDL [Mass/Vol] 141 mg/dL High 0-130 [facility] Comment on above: Performed By: #### C VFLURV #### [place] [phone] Triglyceride [Mass/Vol] 100 mg/dL Normal 0-150 [facility] Comment on above: Result Comment: Trig lyceride Reference Interval: Less than 150 Normal 150-199 Borderline high risk 200-499 High risk 500 or higher Very high risk Performed By: #### C VFLURV #### [address] [address] TSHon 04-07-2025 TSH Qn 3.25 m[IU]/L Normal 0.36-3.74 [facility] Comment on above: Performed By: #### F T4, CMP, GFR, LIPID, CBC, ADIFF, ANEU, FT3, VIDH, TSH #### [address] [address] VIDHon 04-07-2025 Vit. D 25-Hydroxy 49.4 ng/mL Normal [facility] Comment on above: Result Comment: Inte rpretive Values Based on Total 25(OH) Vitamin D: Deficient <20 ng/mL Insufficient 20 - <30 ng/mL Sufficient 30-100 ng/mL Performed By: #### F T4, CMP, GFR, LIPID, CBC, ADIFF, ANEU, FT3, VIDH, TSH #### [address] [address] DBT Breast - bilateral scree tyson 02-23-2025 [...] Chante Anna M.D. Electronically signed on: 02/23/2025 Youth Support Worker: JUANA Transcribe Date/Time: Feb 23 2025 10:42A Dictated by: CHANTE ANNA MD This examination was interpreted and the report reviewed and electronically signed by: CHANTE ANNA MD on Feb 23 2025 12:38PM [facility] DIVISION OF RADIOLOGY * * *Final Report* * * DATE OF EXAM: Feb 23 2025 10:55AM [facility] 0582 - [facility] SCREENING W VÍCTOR / PROCEDURE REASON: Encounter for screening mammogram for malignant neoplasm of breast * * * * Physician Interpretation * * * * RESULT: [place] [address] #[id number] - [facility] SCREENING W VÍCTOR HISTORY: 79 [...] significant interval changes. DIVISION OF RADIOLOGY Provider, [facility] Adalberto [facility] - 02/23/2025 * * *Final Report* * * DATE OF EXAM: Feb 23 2025 10:55AM [facility] 0582 - [place] SCREENING W VÍCTOR / PROCEDURE REASON: Encounter for screening mammogram for malignant neoplasm of breast * * * * Physician Interpretation * * * * RESULT: [place] [address] [place] [address] #[id number] - [place] SCREENING W VÍCTOR HISTORY: 79 [...] Chante Anna M.D. Electronically signed on: 02/23/2025 Youth Support Worker: JUANA Transcribe Date/Time: Feb 23 2025 10:42A Dictated by: CHANTE ANNA MD This examination was interpreted and the report reviewed and electronically signed by: CHANTE ANNA MD on Feb 23 2025 12:38PM [facility] Radiology Study observation (narrative) Jose murillo [facility] DBT Breast - bilateral scree ningOrdered By: Ccf Provider on 02-23-2025 [facility] SCREENING W TOMOon 02-23 [facility] SCREENING W VÍCTOR * * *Final Report* * * DATE OF EXAM: Feb 23 2025 10:55AM [facility] 0582 - [place] SCREENING W VÍCTOR / PROCEDURE REASON: Encounter for screening mammogram for malignant neoplasm of breast * * * * Physician Interpretation * * * * RESULT: [facility] [address] [place] [address] #[id number] - [place] SCREENING W VÍCTOR HISTORY: 79 [...] Chante Anna M.D. Electronically signed on: 02/23/2025 Youth Support Worker: JUANA Transcrilaila Date/Time: Feb 23 2025 10:42A Dictated by: CHANTE ANNA MD This examination was interpreted and the report reviewed and electronically signed by: CHANTE ANNA MD on Feb 23 2025 12:38PM EST [id number] Normal [facility] Tricia 02-02-2025 CNPN Telephone (OBGYWM) KELVIN MCINTYRE ([id number]) 1945 F Date Time Provider Department 02/02/25 [...] - Rash Date Reviewed: 11/20/2022 Reviewed by: Rachael Simmons, HAILEE.SHRIMP HEADER - Fully Assessed Primary Visit Diagnosis:Encounter for screening mammogram for malignant neoplasm of breast [Z12.31] Order(s):[facility] SCREENING W VÍCTOR [[id number]] Order #: [id number] FUTURE Prescriptions as of 02/02/2025 - Levothyroxine [...] Status:Closed by [facility] on 02/02/25 Normal [facility] CVFLURVon 10-05-2024 FLU A PCR Negative Normal Negative [facility] Comment on above: Performed By: #### C VFLURV #### [address] [address] FLU B PCR Negative Normal Negative [facility] Comment on above: Performed By: #### C VFLURV #### [id number] [place], [place] [address] RSV PCR Positive Abnormal Negative [facility] Comment on above: Performed By: #### C VFLURV #### [address] [address] SARS-CoV-2 (COVID-19) RNA JASVIR+probe Ql (Unsp spec) Negative Normal Negative [facility] Comment on above: Result Comment: Resu lts [...] results. Performed By: #### C VFLURV #### [address] [address] LABORATORYOrdered By: Edna Asencio on 10-05-2024 FLUAV [...] 10/05/2024 4:36:36 PM Ordering Provider: ZACHERY PAPPAS [facility] .Auto Diffon 03-19-2024 Basophil, Absolute 0.1 10 3/mcL Normal 0.0-0.2 [facility] later [facility] ([place]) Comment on above: Performed By: #### V IDH, LIPID, TSH, ANEU, FT3, ADIFF, GFR, CMP, CBC #### [place] [id number] [place], [place] [address] Basophils/100 WBC (Bld) 1.0 % Normal 0.0-2.5 A [facility] ([place]) Comment on above: Performed By: #### V IDH, LIPID, TSH, ANEU, FT3, ADIFF, GFR, CMP, CBC #### [address] [address] Eosinophil, Absolute 0.2 10 3/mcL Normal 0.0-0.4 [facility] ([place]) Comment on above: Performed By: #### V IDH, LIPID, TSH, ANEU, FT3, ADIFF, GFR, CMP, CBC #### [address] [address] Eosinophils/100 WBC (Bld) 2.9 % Normal 0.0-7.0 [facility] ([place]) Comment on above: Performed By: #### V IDH, LIPID, TSH, ANEU, FT3, ADIFF, GFR, CMP, CBC #### [address] [address] Lymphocyte, Absolute 1.9 10 3/mcL Normal 0.8-3.9 [facility] ([place]) Comment on above: Performed By: #### V IDH, LIPID, TSH, ANEU, FT3, ADIFF, GFR, CMP, CBC #### [address] [address] Lymphocytes/100 WBC (Bld) 26.5 % Normal 10.0-50.0 [facility] ([place]) Comment on above: Performed By: #### V IDH, LIPID, TSH, ANEU, FT3, ADIFF, GFR, CMP, CBC #### [address] [address] Monocyte, Absolute 0.7 10 3/mcL Normal 0.2-1.0 [facility] ([place] Comment on above: Performed By: #### V IDH, LIPID, TSH, ANEU, FT3, ADIFF, GFR, CMP, CBC #### [address] [address] Monocytes/100 WBC (Bld) 10.2 % Normal 1.7-13.0 [facility] ([place]) Comment on above: Performed By: #### V IDH, LIPID, TSH, ANEU, FT3, ADIFF, GFR, CMP, CBC #### [address] [address] Neutrophils/100 WBC (Bld) 59.4 % Normal 37.0-80.0 [facility] ([place] Comment on above: Performed By: #### V IDH, LIPID, TSH, ANEU, FT3, ADIFF, GFR, CMP, CBC #### [address] [address] .GFRon 03-19-2024 GFR 85 ml/min/1.73sqm Normal [facility] ([place]) Comment on above: Result Comment: GFR Population [...] ANEU, FT3, ADIFF, GFR, CMP, CBC #### [address] [address] GFR Non- 70 ml/min/1.73sqm Normal [facility] ([place]) Comment on above: Result Comment: GFR Population [...] ANEU, FT3, ADIFF, GFR, CMP, CBC #### [place] [address] .NEUABSon 03-19-2024 Neutrophil, Absolute 4.3 10 3/mcL Normal 2.9-6.2 [facility] ([place] Comment on above: Performed By: #### V IDH, LIPID, TSH, ANEU, FT3, ADIFF, GFR, CMP, CBC #### [place] [address] CBCon 03-19-2024 Erythrocyte distribution width (RBC) [Ratio] 13.2 % Normal 11.5-14.5 [facility] ([place] Comment on above: Performed By: #### V IDH, LIPID, TSH, ANEU, FT3, ADIFF, GFR, CMP, CBC #### [place] [address] Hematocrit (Bld) [Volume fraction] 35.5 % Low 37.0-47.0 [facility] ([place] Comment on above: Performed By: #### V IDH, LIPID, TSH, ANEU, FT3, ADIFF, GFR, CMP, CBC #### [place] [address] Hgb 12.0 G/dL Normal 12.0-16.0 [facility] ([place] Comment on above: Performed By: #### V IDH, LIPID, TSH, ANEU, FT3, ADIFF, GFR, CMP, CBC #### [place] [address] MCH (RBC) [Entitic mass] 29.8 pg Normal 27.0-31.2 [facility] ([place] Comment on above: Performed By: #### V IDH, LIPID, TSH, ANEU, FT3, ADIFF, GFR, CMP, CBC #### [place] [address] MCHC 33.8 G/dL Normal 33.0-37.0 [facility] ([place] Comment on above: Performed By: #### V IDH, LIPID, TSH, ANEU, FT3, ADIFF, GFR, CMP, CBC #### [address] [address] MCV (RBC) [Entitic vol] 88.3 fL Normal 80.0-94.0 A [facility] ([place] Comment on above: Performed By: #### V IDH, LIPID, TSH, ANEU, FT3, ADIFF, GFR, CMP, CBC #### [address] [address] Platelet 335 10 3/mcL Normal 130-400 [facility] ([place]) Comment on above: Performed By: #### V IDH, LIPID, TSH, ANEU, FT3, ADIFF, GFR, CMP, CBC #### [address] [address] Platelet mean volume (Bld) [Entitic vol] 6.8 fL Low 7.4-10.4 [facility] ([place] Comment on above: Performed By: #### V IDH, LIPID, TSH, ANEU, FT3, ADIFF, GFR, CMP, CBC #### [address] [address] RBC 4.03 10 6/mcL Low 4.20-5.40 [facility] ([place] Comment on above: Performed By: #### V IDH, LIPID, TSH, ANEU, FT3, ADIFF, GFR, CMP, CBC #### [address] [address] WBC 7.3 10 3/mcL Normal 4.6-10.8 [facility] ([place] Comment on above: Performed By: #### V IDH, LIPID, TSH, ANEU, FT3, ADIFF, GFR, CMP, CBC #### [address] [address] CMPon 03-19-2024 Albumin Level 3.8 G/dL Normal 3.4-4.8 [facility] ([place] Comment on above: Performed By: #### V IDH, LIPID, TSH, ANEU, FT3, ADIFF, GFR, CMP, CBC #### [address] [address] Albumin/Globulin [Mass ratio] 1.1 {ratio} Normal 1.1-2.5 [facility] ([place] Comment on above: Performed By: #### V IDH, LIPID, TSH, ANEU, FT3, ADIFF, GFR, CMP, CBC #### [address] [address] ALP [Catalytic activity/Vol] 82 U/L Normal 40-135 [facility] ([place] Comment on above: Performed By: #### V IDH, LIPID, TSH, ANEU, FT3, ADIFF, GFR, CMP, CBC #### [address] [address] ALT [Catalytic activity/Vol] 21 U/L Normal 14-59 [facility] ([place] Comment on above: Performed By: #### V IDH, LIPID, TSH, ANEU, FT3, ADIFF, GFR, CMP, CBC #### [address] [address] AST [Catalytic activity/Vol] 15 U/L Normal 10-40 [facility] ([place] Comment on above: Performed By: #### V IDH, LIPID, TSH, ANEU, FT3, ADIFF, GFR, CMP, CBC #### [address] [address] Bili Total 0.4 mg/dL Normal 0.2-1.0 [facility] ([place]) Comment on above: Result Comment: Use of this assay is not recommended for patients undergoing treatment with eltrombopag due to the potential for falsely elevated results. Performed By: #### V IDH, LIPID, TSH, ANEU, FT3, ADIFF, GFR, CMP, CBC #### [address] [address] BUN/Creatinine Ratio 19 ratio Normal 7-27 [facility] ([place] Comment on above: Performed By: #### V IDH, LIPID, TSH, ANEU, FT3, ADIFF, GFR, CMP, CBC #### [address] [address] Calcium [Mass/Vol] 9.4 mg/dL Normal 8.4-10.2 [facility] ([place]) Comment on above: Performed By: #### V IDH, LIPID, TSH, ANEU, FT3, ADIFF, GFR, CMP, CBC #### [address] [address] Chloride [Moles/Vol] 97 mmol/L Low 98-107 [facility] ([place] Comment on above: Performed By: #### V IDH, LIPID, TSH, ANEU, FT3, ADIFF, GFR, CMP, CBC #### [address] [address] CO2 [Moles/Vol] 31 mmol/L Normal 23-31 [facility] ([place] Comment on above: Performed By: #### V IDH, LIPID, TSH, ANEU, FT3, ADIFF, GFR, CMP, CBC #### [place] [id number] Creatinine [Mass/Vol] 0.79 mg/dL Normal 0.55-1.02 [facility] ([place]) Comment on above: Performed By: #### V IDH, LIPID, TSH, ANEU, FT3, ADIFF, GFR, CMP, CBC #### [address] [address] Electrolyte Balance 8.0 mEq/L Normal 4.0-15.0 [facility] ([place]) Comment on above: Performed By: #### V IDH, LIPID, TSH, ANEU, FT3, ADIFF, GFR, CMP, CBC #### [address] [address] Globulin 3.5 G/dL Normal [facility] ([place]) Comment on above: Performed By: #### V IDH, LIPID, TSH, ANEU, FT3, ADIFF, GFR, CMP, CBC #### [address] [address] Glucose [Mass/Vol] 86 mg/dL Normal 83-110 [facility] ([place]) Comment on above: Performed By: #### V IDH, LIPID, TSH, ANEU, FT3, ADIFF, GFR, CMP, CBC #### [address] [address] Potassium [Moles/Vol] 4.2 mmol/L Normal 3.5-5.1 [facility] ([place]) Comment on above: Performed By: #### V IDH, LIPID, TSH, ANEU, FT3, ADIFF, GFR, CMP, CBC #### [address] [address] Sodium [Moles/Vol] 136 mmol/L Normal 136-145 [facility] ([place]) Comment on above: Performed By: #### V IDH, LIPID, TSH, ANEU, FT3, ADIFF, GFR, CMP, CBC #### [address] [address] Total Protein 7.3 G/dL Normal 6.4-8.2 [facility]) Comment on above: Performed By: #### V IDH, LIPID, TSH, ANEU, FT3, ADIFF, GFR, CMP, CBC #### [address] [address] Urea nitrogen [Mass/Vol] 15 mg/dL Normal 7-18 [facility] ([place]) Comment on above: Performed By: #### V IDH, LIPID, TSH, ANEU, FT3, ADIFF, GFR, CMP, CBC #### [address] [address] FT3on 03-19-2024 Free T3 [Mass/Vol] 2.33 pg/mL Normal 2.30-4.00 [facility] ([place]) Comment on above: Performed By: #### V IDH, LIPID, TSH, ANEU, FT3, ADIFF, GFR, CMP, CBC #### [address] [address] LIPIDon 03-19-2024 Cholesterol [Mass/Vol] 230 mg/dL High 0-200 [facility] ([place]) Comment on above: Result Comment: Chol esterol Reference Interval: Less than 200 Desirable 200-239 Borderline high risk 240 and above High risk Performed By: #### V IDH, LIPID, TSH, ANEU, FT3, ADIFF, GFR, CMP, CBC #### [place] [id number] Cholesterol in HDL [Mass/Vol] 82 mg/dL High 40-60 [facility] ([place] Comment on above: Performed By: #### V IDH, LIPID, TSH, ANEU, FT3, ADIFF, GFR, CMP, CBC #### [place] [phone] Cholesterol in LDL [Mass/Vol] 134 mg/dL High 0-130 [facility] ([place]) Comment on above: Performed By: #### V IDH, LIPID, TSH, ANEU, FT3, ADIFF, GFR, CMP, CBC #### [place] [address] Triglyceride [Mass/Vol] 71 mg/dL Normal 0-150 A [facility] ([place]) Comment on above: Result Comment: Trig lyceride Reference Interval: Less than 150 Normal 150-199 Borderline high risk 200-499 High risk 500 or higher Very high risk Performed By: #### V IDH, LIPID, TSH, ANEU, FT3, ADIFF, GFR, CMP, CBC #### [place] [address] TSHon 03-19-2024 TSH Qn 3.09 m[IU]/L Normal 0.36-3.74 [facility] ([place]) Comment on above: Performed By: #### V IDH, LIPID, TSH, ANEU, FT3, ADIFF, GFR, CMP, CBC #### [place] [id number] VIDHon 03-19-2024 Vit. D 25-Hydroxy 42.3 ng/mL Normal [facility] ([place]) Comment on above: Result Comment: Inte rpretive Values Based on Total 25(OH) Vitamin D: Deficient <20 ng/mL Insufficient 20 - <30 ng/mL Sufficient 30-100 ng/mL Performed By: #### V IDH, LIPID, TSH, ANEU, FT3, ADIFF, GFR, CMP, CBC #### [place] [address] DBT Breast - bilateral keenane tyson 11-27-2023 [facility] BD BONE DENSITY DEXA AXIAL S Elyse 04-04-2023 BD BONE DENSITY DEXA AXIAL SKELETON [...] 04/04/2023 4:04:21 PM Ordering Provider: MAXWELL Siddiqui [facility] ([place]) LABORATORYOrdered By: SYSTEM SYSTEM on 03-13-2023 25-hydroxyvitamin [...] AO ADM SS No Panel Informationon 11-20 [facility] LABORATORYOrdered By: Richmond Farmer on 04-25-2022 C-Reactive Protein mg/dL Invalid Interpretation Code 0.0 - 0.9 mg/dL AO Chemistry S LABORATORYOrdered By: Kristi Clark on 04-25-2022 HbA1c (Bld) [Mass fraction] 6.1 % Invalid Interpretation Code 4.3 - 6.4 % AO ADM SS Vital Signs Date Time Vital Sign Value Performing Clinician Facility 05-24-2025 09:39-0400 Body height 167.[address] Maxwell Chacon MD Work Phone: [facility] 05-24-2025 09:39-0400 Body mass index (BMI) [Ratio] 27.4 kg/m2 Dr. Maxwell Chacon MD Work Phone: [facility] 05-24-2025 09:39-0400 Body weight 77.[address] Maxwell Chacon MD Work Phone: [facility] 05-24-2025 09:39-0400 Diastolic blood pressure 88 mm[Hg] Dr. Maxwell Chacon MD Work Phone: [facility] 05-24-2025 09:39-0400 Heart rate 69 /min Dr. Maxwell Chacon MD Work Phone: [facility] 05-24-2025 09:39-0400 Respiratory rate 16 /min Dr. Maxwell Chacon MD Work Phone: [facility] 05-24-2025 09:39-0400 Systolic blood pressure 146 mm[Hg] Dr. Maxwell Chacon MD Work Phone: [facility] 10-05-2024 17:47-0500 Diastolic Blood Pressure Non-Invasive 84 mm[Hg] ZACHERY HILL DO [facility] 10-05-2024 17:47-0500 Heart rate 79 /min ZACHERY PAPPAS DO [facility] 10-05-2024 17:47-0500 Mean blood pressure 108 mm[Hg] ZACHERY PAPPAS DO [facility] 10-05-2024 17:47-0500 Respiratory rate 18 /min ZACHERY ELYSE DO [facility] 10-05-2024 17:47-0500 Systolic Blood Pressure Non-Invasive 162 mm[Hg] ZACHERY HILL DO [facility] 10-05-2024 15:52-0500 Body temperature 98.42 [degF] ZACHERY ELYSE DO [facility] 10-05-2024 14:24-0500 Body height 167.6 cm ZACHERY ELYSE DO [facility] 10-05-2024 14:24-0500 Body temperature 98.42 [degF] ZACHERY PAPPAS DO [facility] 10-05-2024 14:24-0500 Body weight 79.5 kg ZACHERY PAPPAS DO [facility] 10-05-2024 14:24-0500 Diastolic Blood Pressure Non-Invasive 79 mm[Hg] ZACHERY PAPPAS DO [facility] 10-05-2024 14:24-0500 Heart rate 90 /min ZACHERY PAPPAS DO [facility] 10-05-2024 14:24-0500 Respiratory rate 18 /min ZACHERY PAPPAS DO [facility] 10-05-2024 14:24-0500 Systolic Blood Pressure Non-Invasive 155 mm[Hg] ZACHERY PAPPAS DO [facility] 11-20-2022 09:08-0500 Body height 166.4 cm Rachael Simmons APRN.SHRIMP HEADER Work Phone: [facility] 11-20-2022 09:08-0500 Body weight 79.83 kg Rachael Simmons APRN.SHRIMP HEADER Work Phone: [facility] 11-20-2022 09:08-0500 Diastolic blood pressure 80 mm[Hg] Rachael Simmons APRN.SHRIMP HEADER Work Phone: [facility] 11-20-2022 09:08-0500 Systolic blood pressure 142 mm[Hg] Rachael Simmons APRN.SHRIMP HEADER Work Phone: [facility] Encounters Encounter Date Encounter Type Care Provider Facility Start: 06-07-2025 ambulatory Bryce [facility] Facility:[facility] Start: 05-24-2025 Encounter for genera l adult medical examination without abnormal findings Maxwell Chacon [facility] Start: 05-24-2025 End: 05-24-2025 Patient encounter procedure Cristine BEARD -[facility] Work Phone: Start: 05-24-2025 End: 05-24-[address] Maxwell Chacon MD Work Phone: -[facility] Start: 05-24-2025 End: 05-24-2025 ambulatory Maxwell Chacon Facility:[facility] Start: 05-13-2025 ambulatory Bryce Brooks Facility:[facility] Start: 05-13-2025 Non-patient / Non-visit Dr. Gaby BRODY -[facility] Start: 05-13-2025 End: 05-13-[address] Maxwell Chacon MD Work Phone: -[facility] Start: 05-13-2025 End: 05-13-[address] Maxwell Chacon MD -[facility] Work Phone: Start: 05-13-2025 End: 05-13-2025 ambulatory Maxwell Chacon Facility:[facility] Start: 05-04-2025 End: 05-08-2025 ambulatory MAXWELL CHACON MD Facility:[facility] Start: 05-04-2025 End: 05-08-2025 Outreach Lab MAXWELL CHACON MD [facility] Start: 04-07-2025 End: 04-07-2025 ambulatory MAXWELL CHACON MD Facility:[facility] Start: 04-07-2025 End: 04-07-2025 Patient encounter procedure MAXWELL CHACON MD [facility] Start: 02-23-2025 End: 04-25-2025 Follow-up encounter Rachael Simmons APRN.SHRIMP HEADER Work Phone: OB/Gynecology Start: 02-23-2025 ambulatory RACHAEL SIMMONS Facility[facility] Start: 02-23-2025 End: 02-23-2025 Subsequent hospital visit by physician Screen Mammo [facility] Comment on above: Encounter for screen ing mammogram for malignant neoplasm of breast [Z12.31] Start: 10-05-2024 End: 10-05-2024 Emergency department patient visit ZACHERY PAPPAS DO [facility] Start: 03-19-2024 End: 03-19-2024 ambulatory MAXWELL CHACON MD Facility:[facility] Start: 11-27-2023 Documentation procedure Mammog mary beth Coordinator [facility] Start: 11-27-2023 Letter encounter Mammography Coordinator [facility] Department Start: 11-27-2023 End: 11-27-2023 Subsequent hospital visit by physician Screen Mammo [facility] Comment on above: Encounter for screen ing mammogram for malignant neoplasm of breast [Z12.31] Start: 11-26-2023 Telephone encounter Rachael ashby APRN.SHRIMP HEADER Work Phone: [facility] Comment on above: Orders Start: 04-04-2023 End: 04-04-2023 ambulatory MAXWELL CHACON MD Facility:[facility] Start: 04-04-2023 End: 04-04-2023 Patient encounter procedure MAXWELL CHACON MD [facility] Start: 03-13-2023 End: 03-13-2023 Patient encounter procedure MAXWELL CHACON MD [facility] Start: 03-12-2023 End: 03-16-2023 Outreach Lab MAXWELL CHACON MD [facility] Start: 11-20-2022 Documentation procedure Mammog mary beth Coordinator [facility] Start: 11-20-2022 Letter encounter Mammography Coordinator [facility] Department Start: 11-20-2022 End: 11-20-2022 Subsequent hospital visit by physician Screen Mammo [facility] Comment on above: mammogram Start: 11-20-2022 End: 11-20-2022 Patient encounter procedure Rachael Simmons APRN.SHRIMP HEADER Work Phone: OB/Gynecology Comment on above: Encounter for routin e gynecologic examination in Medicare patient (Primary Dx); Inclusion cyst of vulva; Encounter for screening mammogram for breast cancer Start: 11-20-2022 End: 11-20-2022 Patient encounter status Rachael Simmons APRN.SHRIMP HEADER Work Phone: OB/Gynecology Start: 04-25-2022 End: 04-25-2022 Patient encounter procedure MAXWELL CHACON MD [facility] Start: 12-11-2020 End: 12-11-2020 Discharged Recurring [facility]-Immunization s Procedures Date Procedure Procedure Detail Performing Clinician Start: 05-24-2025 X-ray of chest, PA and lateral views Dr. Maxwell Chacon MD Work Phone: Start: 05-13-2025 Radionuclide imaging of perfusion of myocardium under exercise stress Dr. Maxwell Chacon MD Work Phone: Start: 02-23-2025 Screening digital breast tomosynthesis bi Rachael Linderie SENIOR SPEECH PATHOLOGIST.SHRIMP HEADER Work Phone: Start: 11-27-2023 Screening digital breast tomosynthesis bi Rachael Brownhrie SENIOR SPEECH PATHOLOGIST.SHRIMP HEADER Work Phone: Start: 11-20-2022 Screening mammography bi 2-view breast inc cad Rachael Brownhrie SENIOR SPEECH PATHOLOGIST.SHRIMP HEADER Work Phone: Start: 08-31-2018 Colonoscopy MAXWELL CHACON MD Appendectomy MAXWELL Mur[place] Bilateral tubal ligation LAXMI CHACON MD Dilation and curettage SHAKA CHACON MD Extraction of cataract SHAKA CHACON MD History of tonsillectomy LAXMI CHACON MD History of tonsillectomy History of tonsi llectomy Dr. Maxwell Chacon MD Work Phone: Plan of Treatment Date Care Activity Detail Author Start: 06-13-2025 Influenza vaccination Influenza Vaccine (#1) [facility] Start: 07-15-2025 Covid-19 Vaccine ( season) Covid-19 Vaccine () [facility] Start: 10-13-2024 Advance Directive Discussion Advance Directive Discussion [facility] Start: 10-13-2023 Advance Directive Discussion Advance Directive Discussion [facility] Start: 10-13-2023 Depression Assessment Depression Assessment [facility] Start: 06-13-2023 Covid-19 Vaccine ( season) Covid-19 Vaccine () [facility] Start: 06-13-2023 Influenza vaccination Influenza Vaccine (#1) [facility] Start: 10-13-2022 ADVANCE DIRECTIVE DISCUSSION ADVANCE DIRECTIVE DISCUSSION [facility] Start: 10-13-2022 DEPRESSION ASSESSMENT DEPRESSION ASSESSMENT [facility] Start: 2019 RSV Vaccine (1 - 1-dose 75+ series) RSV Vaccine (1 - 1-dose 75+ series) [facility] Start: 09-01-2016 DIABETES SCREEN DIABETES SCREEN [facility] Start: 09-01-2016 Diabetes Screening Diabetes Screening [facility] Start: 2009 PNEUMOCOCCAL: 65+ (1 - PCV) PNEUMOCOCCAL: 65+ (1 - PCV) [facility] Start: 11-13-2009 Medicare Annual Wellness Visit Medicare Annual Wellness Visit [facility] Start: 2004 RSV Vaccine (1 - 1-dose 60+ series) RSV Vaccine (1 - 1-dose 60+ series) [facility] Start: 1994 SHINGRIX VACCINE (1 of 2) SHINGRIX VACCINE (1 of 2) [facility] Start: 1963 [facility] Start: 1962 ANNUAL PCP TEAM CHRONIC DISEASE VISIT ANNUAL PCP TEAM CHRONIC DISEASE VISIT [facility] Start: 1962 Anxiety Screening Anxiety Screening [facility] Start: 1962 BP CONTROLLED (<130/80) BP CONTROLLED (<130/80) [facility] Start: 1962 Depression Screening Depression Screening [facility] Start: 1962 HEPATITIS C SCREENING HEPATITIS C SCREENING [facility] Start: 1962 Hepatitis C screening Hepatitis C Screening [facility] Basic metabolic 2008 panel with ionized calcium - Serum or Plasma [facility] Basic metabolic 2008 panel with ionized calcium - Serum or Plasma [facility] Catheterization of l eft heart [facility] CBC W Auto Different ial panel - Blood [facility] XR Chest PA and Lateral [facility] Immunizations Immunization Date Immunization Notes Care Provider Fa annmarie 10-27-2024 influenza virus vacc ine, unspecified formulation MAXWELL CHACON MD [facility] 10-27-2024 SARS-CoV-2 (COVID-19 ) [id number] MAXWELL CHACON MD [facility] 09-24-2023 influenza virus vacc ine, unspecified formulation ZACHERY PAPPAS DO [facility] 09-24-2023 SARS-CoV-2 (COVID-19 ) [id number] ZACHERY PAPPAS DO [facility] 08-14-2022 influenza virus vacc ine, unspecified formulation MAXWELL CHACON MD [facility] 08-14-2022 [id number](tozinam er [id number] uma MAXWELL CHACON MD [facility] 08-14-2022 [id number](tozinam enrique [id number])bi vac ZACHERY PAPPAS DO [facility] 03-06-2022 SARS-CoV-2 (COVID-19 ) mRNA-1273 vaccine MAXWELL CHACON MD [facility] 08-23-2021 SARS-CoV-2 (COVID-19 ) mRNA-1273 vaccine MAXWELL CHACON MD [facility] 07-04-2021 influenza virus vacc ine, unspecified formulation ZACHERY PAPPAS DO [facility] 01-08-2021 Covid (Moderna) Jean Claude becker [facility] 12-11-2020 Covid (Moderna) Jean Claude Mulligan [facility] Comment on above: Result Comment: 2021: [id number] 06-09-2020 influenza virus vacc ine, unspecified formulation ZACHERY PAPPAS DO [facility] 06-09-2020 zoster vaccine recombinant ZACHERY PAPPAS DO [facility] 04-07-2020 zoster vaccine recombinant ZACHERY PAPPAS DO [facility] 07-30-2019 influenza virus vacc ine, unspecified formulation MAXWELL CHACON MD [facility] 07-30-2019 pneumococcal conjuga te vaccine, 13 valhelio CHACON MD [facility] 08-04-2017 pneumococcal conjuga te vaccine, 13 valhelio CHACON MD [facility] 08-08-2016 zoster vaccine, live MAXWELL CHACON MD [facility] 05-14-2013 pneumococcal polysaccharide vaccine, 23 valent ZACHERY PAPPAS DO [facility] Payers Date Payer Category Payer Self-pay [id number] 2025 Private Health Insurance [id number] 2023 Medicare [id number] 2010 Miscellaneous or Other HOSPITAL/ MEDICAL GENERIC [id number] 2010 Unknown [id number] 2010 Unknown [id number] 2009 Medicare [id number] 2009 Medicare [id number] 1944 Unknown [id number]. [id number] 1944 Unknown [id number]. 2.627 1944 Unknown [id number]. 2.627 1944 Unknown [id number]. [id number] 1944 Unknown [id number]. 2.627 Unknown SELF PAY INSURANCE [id number] Unknown [id number]. [id number] Unknown [id number]. 2.462 Unknown [id number]. 2.462 Unknown [id number]. 2.462 Unknown [id number]. 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 winder of alcohol (finding) [facility] Start: 03-31-2020 History SDOH Social Connections Phone 5 [facility] Start: 03-31-2020 History SDOH Social Connections Get Together 2 [facility] Start: 03-31-2020 History SDOH Social Connections Yarsanism 3 [facility] Start: 03-31-2020 History SDOH Social Connections Meetings 1 [facility] Start: 03-31-2020 History SDOH Physica l Activity DPW 7 [facility] Start: 03-31-2020 Education 17 [facility] Start: 1945 Sex Assigned At Not on file [facility] Start: 03-31-2020 End: 02-23-[address] [facility] danielle Work Phone: Start: 03-31-2020 End: 02-23-2025 Social connection and isolation panel [facility] Work Phone: Do you belong to any clubs or organizations such as jainism groups, unions, fraternal or athletic groups, or school groups? No [facility] Work Phone: Are you now , , , , never or living with a partner? [facility] Work Phone: How hard is it for y ou to pay for the very basics like food, housing, medical care, and heating Not hard at all [facility] Work Phone: Do you feel stress - tense, restless, nervous, or anxious, or unable to sleep at night because your mind is troubled all the time - these days [OSQ] Only a little [facility] Work Phone: (I/We) worried michelle er (my/our) food would run out before (I/we) got money to buy more. Never true [facility] Work Phone: Sexual Orientation [facility] Start: 09-06-2019 Sex Female (finding) [facility] Tobacco smoking stat [facility] Unknown if ever smoked [facility] Work Phone: Goals Date Patient Goal Desired Activity /State Functional Status Date Assessment Result Facility 10-05-2024 Functional Status Independent [facility] 10-05-2024 Functional Status Independent [facility] 09-07-2014 Are you deaf, or do you have serious difficulty hearing No 09/07/2014 8:57 AM Jolene Sanchez MA [facility] 09-07-2014 Are you blind, or do you have serious difficulty seeing, even when wearing glasses No 09/07/2014 8:57 AM [address]olene Sanchez MA [facility] 09-07-2014 Do you have serious difficulty walking or climbing stairs No 09/07/2014 8:57 AM [address]olene Sanchez MA [facility] 09-07-2014 Do you have difficul ty dressing or bathing No 09/07/2014 8:57 AM [address]olene Sanchez MA [facility] 09-07-2014 Because of a physica l, mental, or emotional condition, do you have difficulty doing errands alone such as visiting a physician's office or shopping No 09/07/2014 8:57 AM [address]olene Sanchez MA [facility] Mental Status Date Assessment Result Facility 10-05-2024 Mental Status Orientation Oriented x 4 [facility] 10-05-2024 Mental Status [facility] 09-07-2014 Because of a physica l, mental, or emotional condition, do you have serious difficulty concentrating, remembering, or making decisions No 09/07/2014 8:57 AM Jloene Sanchez MA No [facility] Clinical Notes 11-20-2022 to 05-25-2025 Note Date & Type Note Facility 05-25-2025 Radiology Diagnostic study note [facility] Imaging Services [address] [place] [address] Chest PA and Lateral MR#: [id number] Acct: [id number] Name: KELVIN MCINTYRE Rep #: [id number] : 1945 F 79 From: Damaso Ríos MD PCP: Dr. Maxwell Chacon MD Status: REG CLI Study:Chest PA and Lateral Date of Exam: 05/24/25 Exam# [id number] Ordering Dr: Cristine Crow PA PROCEDURE: CHEST PA AND LATERAL 05/24/2025 REASON FOR EXAM: DHILLON TECHNIQUE: CHEST PA AND LATERAL FINDINGS: The heart is normal in size. The lungs are clear. No acute osseous abnormalities. RAD/Chest PA and Lateral IMPRESSION: NO ACUTE FINDINGS. Reading Location: [id number] CC: Dr. Maxwell Chacon MD; CHIRAG Arora ~ Youth Support Worker: Signed [facility] 05-24-2025 Evaluation note Diagnosis Onset Date Resolution Abnormal stress test acute Augu 2024 9:24am Essential hypertension acute [facility] 2024 9:24am Hyperlipidemia acute May 9:24am LBBB (left bundle branch block) acute May 24 9:24am [facility] Work Phone: 1(182) 306-577507-01-2025 Evaluation + Plan note Future Scheduled Tests Radiology* NM Myocardial Spect Rest/Stress 04/12/25 [facility] 05-14-2025 History of Present illness Narrative* Kojo Plata Mammo Tech - 02/23/2025 10:50 AM EDT Radiology Service Progress Note PATIENT NAME: Kelvin [...] Assigned female at . status: : No status:NO. PATIENT RELEVANT IMPLANT DATA REVIEWED: Not Applicable PATIENT PRESENTS WITH AN IMPLANTABLE OR ATTACHED ICE HOUSE SUPERVISOR: No RADIOLOGY DEPARTMENT: Mammography PERIPHERAL IV DATA: Not applicable SIGNED BY: Evie Larry February 23, 2025 11:00 AM documented in this encounterMer[facility]-2025 NoteHNO ID: [id number] Author: KOJO PLATA Mammo Tech Service: ? Author Type: Director Of Scout Work Type: Progress Notes Filed: 02/23/2025 11:01 Note [...] PATIENT PRESENTS WITH AN IMPLANTABLE OR ATTACHED ICE HOUSE SUPERVISOR: No RADIOLOGY DEPARTMENT: Mammography PERIPHERAL IV DATA: Not applicable SIGNED BY: Evie Larry February 23, 2025 11:00 [facility]12-24-2024 Hospital Discharge instructions Patient Education 10/05/2024 17:20:31 [...] coughing up yellow or green mucus, and wheezing.Bronchitis can be acute or chronic. Acute means [...] You can help feel better faster by doingthe following: Take medicine as directed. You may be told to take ibuprofen or other wfdq-dzh-reagenq medicines. These help relieve inflammation in your bronchial tubes. Your healthcare provider may prescribe an inhaler to help open up the bronchial tubes. Most of the time, acute bronchitis is caused by a viral in fection. Antibiotics are usually not prescribed for viral [...] in a week or two. But a drycough can linger beyond that time. Let your [...] or within 3 days of taking antibiotics [id number] [employer]. [address] [place] [address]. All rights reserved. This information is not intended as a substitute for professional medical care. Always follow yourhealthcare professional's instructions. Follow Up Care 10/05/2024 13:56:33 With:MAXWELL CHACON MD Address: [address] [place] [address]- When:2-4 days [facility] 12-24-2024 Note Discharge Instructions Thank you for allowing [place] to assist you with your healthcare needs. The following is importantdischarge information regarding your hospital visit. Diagnosis from [...] MD When:Within 2-4 days Where:[address] [place] [address]- Allergies penicillin Medications Please ask your primary doctor or pharmacist before taking any other medication not listed, including over the counter drugs, herbal medications, vitamins and or supplements as they may interact withur home medications. What How Much When Instructions [...] coughing up yellow or green mucus, and wheezing.Bronchitis can be acute or chronic. Acute means [...] You can help feel better faster by doingthe following: Take medicine as directed. You may be told to take ibuprofen or other uvub-jwa-miwbbfi medicines. These help relieve inflammation in your bronchial tubes. Your healthcare provider may prescribe an inhaler to help open up the bronchial tubes. Most of the time, acute bronchitis is caused by a viral in fection. Antibiotics are usually not prescribed for viral [...] in a week or two. But a drycough can linger beyond that time. Let your [...] or within 3 days of taking antibiotics 3103-2021 [employer]. [address] [place] [address], [place] [address]. All rights reserved. This information is not intended as a substitute for professional medical care. Always follow yourhealthcare professional's instructions. Additional Information VACCINATE! IT SAVES LIVES! Members of the community who have not yet received the COVID-19 vaccine and would like to receive it can visit one of [facility] vaccine clinics. There are many vaccine clinic locations within the [facility]. For locations and available times, please visit www.gettheshot.coronavirus.[place].gov/. It is important to note that some COVID mobile vaccine clinics are held outdoors and may be canceled in rainy or stormy conditions. To learn more about pediatric vaccinations (ages 5-11), we invite you to visit the [facility] webpage. https://www.[facility].org/pages/9925-Zgrmv-Ksyvtcajwbn-Nusvfljmqn-Jmjxq-Amx stions.htmlTo learn more about the COVID-19 vaccine, we invite you to visit the CDC website for a list of frequently asked questions. https://www.cdc.gov/coronavirus/2019-ncov/vaccines/faq.html [facility] Patient Portal Access Instructions: Stay connected with your healthcare team and access your personal medical information anytime with the [facility] Patient Portal. If you would like a full copy of your medical records please contact the [facility] Medical Records Department Friday through Friday between 8a.m. and 4:30p.m. Please follow the directions below to access the portal: 1.Access the email account you provided upon registration to the hospital.2.Look for an invitation email from [facility].3.Open the email and access the invitation link: Accept Invitation to [facility]4.Fill in the required mariano to create your [...] you will allow to register on the [facility] Patient Portal for access to your information. You can also access the [facility] Patient Portal on the Star.me. Simply click on Health Records under [employer] and then click on the [facility] logo. HOW TO SAFELY DISPOSE OF PRESCRIPTION MEDICATIONS Please use one of the following methods to safely dispose of your unused medications. 1.Use a drug disposal kit: the drug disposal pouch allows you to safely discard your old and unuseddrugs. Ask your nurse to give you one when you are discharged.2.Visit a local take-back location: Many local pharmacies and police departments have programs that collect old and unwanted prescriptiondrugs. Call your local pharmacy or go to http://[employer]/6F5Qo0q to find one close to you.3.Make use of household items: Use cat litter or old coffee grounds to dispose medications if other options arenot available. Mix your drugs with these household products, seal them in an airtight container andthrow it into the garbage. Call [facility]: [phone] to be sure your drugs can be [...] drowsiness, such as benzodiazepines, also known as benzos,including diazepam and alprazolam, muscle relaxants or sleep aids. Never sell or share prescriptionopioids. This is illegal. Store opioids in a [...] aware that I should contact my doctor. Patient/Supervisor Lens Generating Signature: Date/Time: Relationship to Patient: Witness Name/Signature: Date/Time: [facility]12-24-2024 Note* Exam Date Time Procedure Performing Provider Status 10/05/24 4:02 PM XR Chest 2 Views LELA ESTEVES MD ; Auth (Verified) [id number] ORIGINAL EXAMINATION: TWO XRAY VIEWS OF THE [...] 10/05/2024 4:36:36 PM Ordering Provider: ZACHERY PAPPAS [facility]02-15-2024 Miscellaneous Notes* Letter - Coordinator, Mammography - 11/27/2023 11:31 AM EST November 27, 2023 PID: [id number] Kelvin Mcintyre [address] [place] [address] Dear Ms. Mcintyre, We are pleased to [...] report will be kept on file at [facility] as part of your permanent medical record and are available for your continuing care. Thank you for allowing us to help in meeting your health care needs. Sincerely, Dr. 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 NAN Retana * Telephone Encounter - Racahel Simmons APRN.CNP - 11/26/2023 12:58 PM EST [...] Mammogram was 11/20/2022. Pleasecall patient back at [phone] and advice when order is placed. Ingris Dunham documented in this encounterMercy Health [facility] Hospital06-23-2023 Note ORIGINAL EXAMINATION: BONE DENSITOMETRY 04/04/2023 3:56 [...] Date: 04/04/2023 4:04:21 PM Ordering Provider: MAXWELL [facility]06-23-2023 Note ORIGINAL EXAMINATION: BONE DENSITOMETRY [...] Date: 04/04/2023 4:04:21 PM Ordering Provider: MAXWELL [facility]02-08-2023 Miscellaneous Notes* Letter - Mammography Coordinator - 11/20/2022 11:39 AM EST November 21, 2022 PID: [id number] Kelvin Mcintyre [address] [place] [address] Dear Ms. Mcintyre, We are pleased to [...] report will be kept on file at [facility] as part of your permanent medical record and are available for your continuing care. Thank you for allowing us to help in meeting your health care needs. Sincerely, Dr. 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 Kelvin is a 76 [...] vaginal deliveries 1 D&C for missed ab [employer] History LMP: Postmenopausal Age at Menarche: Age at First : Age at Menopause: [employer] History Comments: Sexual Activity: Not Currently; No [...] external genitalia normal, normal Bartholin's glands, urethra, Woodhull's glands, no vulvar lesions, no cervical lesions, [...] needed Rachael Simmons APRN.CNP documented in this encounterMercy Health Willard HospitalEvaluation + Plan note No data available for this section [facility] Evaluation + Plan note Future Appointments Appointment Date:03/27/2023 02:30:00 PM Scheduled Provider:MAXWELL CHACON MD Location:[facility] Appointment Type:PC OV Future Scheduled Tests Radiology* BD Bone Density DEXA Axial Skeleton 03/12/23 [facility] Evaluation + Plan note Future Appointments Appointment Date:04/08/2025 10:00:00 AM Scheduled Provider:MAXWELL CHACON MD Location:[facility] Appointment Type:PC Wellness Medicare [facility] Evaluation + Plan note Future Appointments Appointment Date:04/12/2025 03:00:00 PM Scheduled Provider:MAXWELL CHACON MD Location:[facility] Appointment Type:PC Wellness Medicare [facility] Evaluation note* Diagnosis Encounter for routine gynecologic examination in Medicare patient- Primary Inclusion cyst of vulva Other specified noninflammatory disorder of vulva and perineum Encounter for screening mammogram for breast cancer documented in this encounter [facility]* Diagnosis Encounter for screening mammogram for breast cancer Encounter for routine gynecologic examination in Medicare patient documented in this encounter [facility]* Diagnosis Encounter for screening mammogram for malignant neoplasm of breast- Primary Other screening mammogram Heterogeneously dense tissue of both breasts on mammography [facility] Diagnosis Encounter for screening mammogram for malignant neoplasm of breast Other screening mammogram Heterogeneously dense tissue of both breasts on mammography [facility]* Diagnosis Encounter for screening mammogram for malignant neoplasm of breast Other screening mammogram documented in this encounter [facility] noteNo assessment information availableWBellevue Hospital Work Phone: Evaluation note* Diagnosis Onset Date Resolution Status Admit Date Abnormal stress test acute Augu st 2024 9:24am Essential hypertension acute Au 2024 9:24am Hyperlipidemia acute May 9:24am LBBB (left bundle branch block) acut e May 24, 2025 9:24am [facility] Work Phone: Hospital Discharge instructions No data available for this section [facility] Progress note No data available for this section [facility] Reason for referral (narrative)* Diagnostic Procedure Only (Routine) - Closed Specialty Diagnoses / Procedures Referred By Janet t Referred To Contact [facility] Diagnoses Encounter for screening mammogram for breast cancer Encounter for routine gynecologic examination in Medicare patient Procedures ADELE SCREENING SCREENING MAMMOGRAPHY BI 2-VIEW BREAST INC Rachael Diane APRN.SHRIMP HEADER [address] [place] [address] [facility] [address] [place] [address] Referral ID Status Reason Start Date Expiration Date V isits Requested Visits Authorized [id number] Closed Auto-Generate d Referral 11/20/2022 12/20/2023 1 1 [facility] Diagnostic Procedure Only (Routine) - Closed Specialty Diagnoses / Procedures Referred By Janet t Referred To Contact [facility] Diagnoses Encounter for screening mammogram for breast cancer Encounter for routine gynecologic examination in Medicare patient Procedures ADELE SCREENING SCREENING MAMMOGRAPHY BI 2-VIEW BREAST INC Rachael Diane APRN.SHRIMP HEADER [address] [place] [address] [facility] [address] [place] [address] Referral ID Status Reason Start Date Expiration Date V isits Requested Visits Authorized [id number] Closed Auto-Generate d Referral 11/20/2022 12/20/2023 1 1 [facility] Diagnostic Procedure Only (Routine) - Closed Specialty Diagnoses / Procedures Referred By Janet muse Referred To Contact [facility] Diagnoses Encounter for screening mammogram for malignant neoplasm of breast Heterogeneously dense tissue of both breasts on mammography Procedures ADELE SCREENING W VÍCTOR SCREENING DIGITAL BREAST TOMOSYNTHESIS BI SCREENING MAMMOGRAPHY BI 2-VIEW BREAST INC Rachael Diane APRN.SHRIMP HEADER [address] [place] [address] [facility] [address] [place] [address] Referral ID Status Reason Start Date Expiration Date V isits Requested Visits Authorized [id number] Closed Auto-Generate d Referral 11/26/2023 12/25/2024 1 1 [facility] for referral (narrative)* Diagnostic Procedure Only (Routine) - Closed Specialty Diagnoses / Procedures Referred By Janet muse Referred To Contact [facility] Diagnoses Encounter for screening mammogram for malignant neoplasm of breast Heterogeneously dense tissue of both breasts on mammography Procedures ADELE SCREENING W VÍCTOR SCREENING DIGITAL BREAST TOMOSYNTHESIS BI SCREENING MAMMOGRAPHY BI 2-VIEW BREAST INC Rachael Diane APRN.SHRIMP HEADER [address] [place] [address] [facility] [address] [place] [address] Referral ID Status Reason Start Date Expiration Date V isits Requested Visits Authorized [id number] Closed Auto-Generate d Referral 11/26/2023 12/25/2024 1 1 [facility]No reason for referral information availableWBellevue Hospital Work Phone: Reason for visit Narrative* Diagnostic Procedure Only (Routine) - Closed Specialty Diagnoses / Procedures Referred By Janet muse Referred To Contact [facility] Diagnoses Encounter for screening mammogram for breast cancer Encounter for routine gynecologic examination in Medicare patient Procedures ADELE SCREENING SCREENING MAMMOGRAPHY BI 2-VIEW BREAST INC Rachael Diane APRN.SHRIMP HEADER [address] [place] [address] [facility] [address] [place] [address] Referral ID Status Reason Start Date Expiration Date V isits Requested Visits Authorized [id number] Closed Auto-Generate d Referral 11/20/2022 12/20/2023 1 1 [facility] for visit Narrative* Diagnostic Procedure Only (Routine) - Closed Specialty Diagnoses / Procedures Referred By Janet muse Referred To Contact [facility] Diagnoses Encounter for screening mammogram for malignant neoplasm of breast Heterogeneously dense tissue of both breasts on mammography Procedures ADELE SCREENING W VÍCTOR SCREENING DIGITAL BREAST TOMOSYNTHESIS BI SCREENING MAMMOGRAPHY BI 2-VIEW BREAST INC CAD Rachael Simmons APRN.SHRIMP HEADER [address] [place] [address] [facility] [address] [place] [address] Referral ID Status Reason Start Date Expiration Date V isits Requested Visits Authorized [id number] Closed Auto-Generate d Referral 11/26/2023 12/25/2024 1 1 [facility] for visit Narrative* Diagnostic Procedure Only (Routine) - Closed Specialty Diagnoses / Procedures Referred By Janet muse Referred To Contact [facility] Diagnoses Encounter for screening mammogram for malignant neoplasm of breast Procedures ADELE SCREENING W VÍCTOR SCREENING DIGITAL BREAST TOMOSYNTHESIS BI SCREENING MAMMOGRAPHY BI 2-VIEW BREAST INC CAD Rachael Simmons, SENIOR SPEECH PATHOLOGIST.SHRIMP HEADER [address] [place] [address] Phone: tel: fax: [facility] [address] [place] [address] Referral ID Status Reason Start Date Expiration Date V isits Requested Visits Authorized [id number] Closed Auto-Generate d Referral 02/02/2025 03/04/2026 1 1 [facility] Chief Complaint and Reason for Visit Chief Complaint MODERNA VACCINE Chief Complaint Admit Date LEXISCAN SOB May 13, 2025 6:3 3am LEXISCAN SOB May 13, 2025 5:5 6pm Chief Complaint Admit Date LEXISCAN SOB May 13, 2025 6:3 3am LEXISCAN SOB May 13, 2025 5:5 6pm ABN STRESS (HALKO) May 24, 2025 9: 24am Reason for Visit Admit Date Abnormal stress test May 24, 2025 9 :24am Essential hypertension May 24, 2025 9:24am Hyperlipidemia May 24, 2025 9: 24am LBBB (left bundle branch block) May 132024 9:24am Chief Complaint Admit Date LEXISCAN SOB May 13, 2025 6:3 3am LEXISCAN SOB May 13, 2025 5:5 6pm ABN STRESS (HALKO) May 24, 2025 9: 24am DHILLON May 24, 2025 10 :22am Assessments No Assessments Information Available Summary Purpose Family History No Family History Records Found Relationship Condition Age at Onset Recorded Date/T bailey father Cerebrovascular accident (CVA) Unknown mother Cerebrovascular accident (CVA) Unknown sister Myocardial infarction Unknown brother Cerebrovascular accident (CVA) Unknown brother Congenital anomaly of heart Unknown Advance Directives No Advanced Directives Records FoundNo Advanced Directives Records FoundNo Advanced Directives Records FoundNo Advanced Directives Records Found Additional Source Comments Care Team (unrecognized sect ion and content) Care Team Personnel Name: MAXWELL CHACON MD Position: P4 Physician - Primary Care Med Service: Active Provider Member Role: Primary Care Physician Address: Address: [address] [place], [place] [id number] [facility] [place] [address]- [place] Care Team Related Persons Name: RUDIMARY JANE GREGORIO Source Comments (unrecognize d section and content) In the event this informatio n is protected by the Federal Confidentiality of Alcohol and Drug Abuse Patient Records regulations: The Federal rules restrict any use of the information to criminally investigate or prosecute any alcohol or drug abuse patient.[facility] Hospital[facility] the event this information is protected by the Federal Confidentiality of Alcohol and Drug Abuse Patient Records regulations: The Federal rules restrict any use of the information to criminally investigate or prosecute any alcohol or drug abuse patient.[facility] Hospital[facility] the event this information is protected by the Federal Confidentiality of Alcohol and Drug Abuse Patient Records regulations: The Federal rules restrict any use of the information to criminally investigate or prosecute any alcohol or drug abuse patient.[facility] HospitalIn the event this information is protected by the Federal Confidentiality of Alcohol and Drug Abuse Patient Records regulations: The Federal rules restrict any use of the information to criminally investigate or prosecute any alcohol or drug abuse patient.[facility] HospitalIn the event this information is protected by the Federal Confidentiality of Alcohol and Drug Abuse Patient Records regulations: The Federal rules restrict any use of the information to criminally investigate or prosecute any alcohol or drug abuse patient.[facility] HospitalIn the event this information is protected by the Federal Confidentiality of Alcohol and Drug Abuse Patient Records regulations: The Federal rules restrict any use of the information to criminally investigate or prosecute any alcohol or drug abuse patient.[facility] HospitalIn the event this information is protected by the Federal Confidentiality of Alcohol and Drug Abuse Patient Records regulations: The Federal rules restrict any use of the information to criminally investigate or prosecute any alcohol or drug abuse patient.[facility] HospitalIn the event this information is protected by the Federal Confidentiality of Alcohol and Drug Abuse Patient Records regulations: The Federal rules restrict any use of the information to criminally investigate or prosecute any alcohol or drug abuse patient.[facility] Reason for Visit (unrecogniz ed section and content) Reason Comments Well Woman Reason Comments Orders Care Teams (unrecognized sec tion and content) [employer] Outseamer Relationship Specialty Start Date End Date Maxewll Chacon MD [address] [place] [address] PCP - General 12/31/06 [employer] Outseamer Relationship Specialty Start Date End Date Maxwell Chacon MD [address] [place] [address] PCP - General 12/31/06 [employer] Pants Outseamer Relationship Specialty Start Date End Date Maxwell Chacon MD [address] [place] [address] PCP - General 12/31/06 [employer] Pants Outseamer Relationship Specialty Start Date End Date Maxwell Chacon MD [address] [place] [address] PCP - General 12/31/06 Chainstitch Pants Outseamer Relationship Specialty Start Date End Date Maxwell Chacon MD [address] [place], [place] [id number] PCP - General 12/31/06 Chainstitch Pants Outseamer Relationship Specialty Start Date End Date Maxwell Chacon MD [address] [place], [place] [id number] PCP - General 12/31/06 [employer] Pants Outseamer Relationship Specialty Start Date End Date Maxwell Chacon MD [address] [place] [address] PCP - General 12/31/06 [employer] Pants Outseamer Relationship Specialty Start Date End Date Maxwell Chacon MD [address] [place], [place] [id number] PCP - General 12/31/06 Team Status: Active Member Role/Relationship Status Dates Dr. Maxwell Chacon MD Primary Care Provider Active Team Status: Inactive Member Role/Relationship Status Dates Dr. Maxwell Chacon MD Primary Care Provider Active Start: May 13, 2025 End: May 13, 2025 Dr. Maxwell Chacon MD Attending Provider Active Start: May 13, 2025 End: May 13, 2025 Dr. Maxwell Chacon MD Referring Provider Active Start: May 13, 2025 End: May 13, 2025 Team Status: Active Member Role/Relationship Status Dates Dr. Maxwell Chacon MD Primary Care Provider Active Start: May 13, 2025 Dr. Maxwell Chacon MD Referring Provider Active Start: May 13, 2025 Dr. Maxwell Chacon MD Other Provider Active Sta rt: May 13, 2025 Dr. Bryce Brooks MD Attending Provider Active S tart: May 13, 2025 Team Status: Inactive Member Role/Relationship Status Dates Dr. Maxwell Chacon MD Primary Care Provider Active Start: May 24, 2025 End: May 24, 2025 Dr. Maxwell Chacon MD Referring Provider Active Start: May 24, 2025 End: May 24, 2025 Cristine BEARD, PA Attending Provider Active Start: May 24, 2025 End: May 24, 2025 Team Status: Inactive Member Role/Relationship Status Dates Dr. Maxwell Chacon MD Primary Care Provider Active Start: May 24, 2025 End: May 24, 2025 Cristine BEARD, PA Attending Provider Active Start: May 24, 2025 End: May 24, 2025 Cristine BEARD PA Referring Provider Active Start: May 24, 2025 End: May 24, 2025 INFORMATION SOURCE (unrecogn ized section and content) DATE CREATED AUTHOR 03/21/2024 [facility] ([place]) DATE CREATED AUTHOR AUTHOR'S ORGANIZ ATION 02/24/2025 [facility] [place] DATE CREATED AUTHOR AUTHOR'S ORGANIZ ATION 05/08/2025 [facility] DATE CREATED AUTHOR AUTHOR'S ORGANIZ ATION 06/07/2025 [facility] Goals (unrecognized section and content) Goals may be documented in a n alternate section FOR RECORDS PERTAINING TO PATIENTS WHO ARE [...] BE BASED ON THE PRIMARY CLINICAL RECORDS. [facility] [employer] [facility]. provides no warranty or guarantee of the accuracy or completeness of information in this document.
--- NOTE | 2025-06-07 08:30 | CL.D_ITS ---
Patient Name: MORE MCINTYRE Study Date: 06/07/2025 Performing: Bryce Brooks MD Ht: 66 inches 167.64 cm : 1945 Wt: 170 lbs 77.11 kg Age: 79 Gender: female BSA: 1.87 PROCEDURE(S) PERFORMED [id number])LHC/COR/LV CLINICAL PROFILE AND INDICATIONS Indications: Suspected CAD Heart Failure: None Stress/Imaging Date: 05/25/25Stress Test with SPECT MPI: Positive Low Risk CAD Presentations: Symptom unlikely to be ischemic. CONCLUSIONS Mild calcified proximal LAD 40% stenosis with dominant circumflex system with no significant stenosis and nondominant right coronary artery. Preserved ejection fraction. RECOMMENDATIONS Medical therapy DESCRIPTION OF PROCEDURE The patient arrived to the procedure lab. The risks and benefits of the procedure as well as a full description of our services here and current unavailability of surgical backup were fully explained to the patient and/or their significant other prior to the catheterization. The Timeout was completed, verifying the correct patient and procedure. The patient's procedural site was prepped and draped in the usual fashion. Local anesthetic was given subcutaneously to right radial region with Lidocaine 2%. Using a modified Seldinger technique, arterial access was obtained via the right radial artery, a 6Fr sheath was inserted. Left Coronary Artery selective angiography was performed in multiple views using a 5 Fr. 4.0 [place] catheter. Right Coronary Artery selective angiography was then performed in multiple views using a 5 Fr. 4.0 [place] catheter. Left Coronary Artery selective angiography was performed in multiple views using a 5 Fr. JL3.5 catheter. Left Ventriculography was performed in BYRNE projection using a 5 Fr. [place] catheter. LV to AO pullback pressures were then recorded.The arterial sheath was pulled and a TR Band was applied for hemostasis 10 ml of air CORONARY ANGIOGRAPHY DOMINANCE: Left Dominant LEFT HEART ASSESSMENT Left Ventricular Ejection Fraction: by LV Gram 55 % Normal LV wall motion Normal Left Ventricular systolic function LEFT MAIN: Angiographically normal LEFT ANTERIOR DESCENDING ARTERY: PROX LAD: Mild calcification, 40 to 50% move eccentric calcification present. MID LAD: Mild luminal irregularities less than 30% CIRCUMFLEX ARTERY: Mild luminal irregularities RIGHT CORONARY ARTERY: No significant disease noted COMPLICATIONS No Complications PROCEDURE MEDICATIONS Fentanyl 50 mcg IV Versed 1 mg IV Oxygen: 2 L/min via nasal cannula Baby Aspirin (81mg) 1 Tabs PO @ 06/07/2025 07:32:43 Heparin given IA 06/07/2025 08:03:04 Verapamil 2.5mg, Ntg 100mcgs, 3000 units of Heparin given IA 06/07/2025 08:03:04 SUMMARY OF HEMODYNAMIC DATA Time AIR REST ECG 07:28:52 ECG 07:29:14 AO 116/63 (86) SA 08:08:50 LV 135/3, 8 08:20:29 LV 138/3, 6 08:20:37 LV 131/1, 6 08:21:17 LV 129/3, 5 08:21:25 LVp 127/2, 6 08:21:29 AOp 141/52 (89) 08:21:37 Signed By Bryce Brooks MD On 06/07/2025 08:29:50 Bryce Brooks MD
== END 2025-06-07 10:00 | disposition home or self-care (01) ==
PROVIDERS: Physician Assistant Medical; PCP Family Medicine; Referring Provider Internal Medicine Cardiovascular Disease; Visit Provider Internal Medicine Cardiovascular Disease
DX: I25.10 Atherosclerotic heart disease of native coronary artery without angina pectoris (principal); I10 Essential (primary) hypertension; R06.09 Other forms of dyspnea; E78.5 Hyperlipidemia, unspecified; I44.7 Left bundle-branch block, unspecified
CPT/HCPCS: 36415; 80048; 93458; 99152; 99153; Q9967; C1769; C1894

== ENCOUNTER → 2025-09-26 | Outpatient (CLI) | payer MEDICARE, OTHER, SELFPAY ==
--- NOTE | 2025-09-26 09:45 | NM_ITS ---
PROCEDURE: BONE SCAN WHOLE BODY 09/26/2025 REASON FOR EXAM: METASTATIC DISEASE EVALUATION TECHNIQUE: Procedure Code: NMBO Modality: NM Procedure: BONE SCAN WHOLE BODY Whole-body bone scan with anterior and posterior imaging. RADIOPHARMACEUTICAL: 26.8 mCi Technetium-99m MDP IV COMPARISON: None provided. FINDINGS: Areas of increased uptake of the lower thoracic and lumbar spine are seen. Although nonspecific in nature, the most probably represent degenerative processes. A mild degree of thoracolumbar dextroscoliosis is noted. Asymmetric degenerative changes of the right 1st carpal-metacarpal joint. Bilateral acromioclavicular joint degenerative changes. Degenerative changes also seen of the bilateral sternoclavicular joints. No other sites are seen to suggest the presence of osseous metastatic disease. NM/Bone Scan Whole Body IMPRESSION: Nonspecific areas of increased uptake of the lower thoracic and lumbar spine; f avor degenerative changes. Reading Location: [place] [address]
== END | disposition home or self-care (01) ==
PROVIDERS: PCP Family Medicine; Referring Provider Family Medicine; Visit Provider Family Medicine
DX: R74.8 Abnormal levels of other serum enzymes (principal)
CPT/HCPCS: 78306; A9503